=== PATIENT | male | born 1950 | race Caucasian/White ===

== ENCOUNTER 2019-02-12 22:11 | Inpatient (IN) | payer MEDICARE, OTHER ==
[~2019-02-12] VITALS: Ht 175.3 cm; Wt 84.8 kg
--- NOTE | ~2019-02-12 | CON ---
[address] [address] CONSULTATION Name: ZENON SALVADOR Alek Room: [address] IN M.R.#: [id number] Admission: 02/12/19 Attend Phys: Sadaf Cruz MD Discharge: 02/15/19 Date of : 52 Report #: [id number] THIS REPORT FOR: //name// CC: [facility] physician/PCP Sadaf Rhoeds NP DATE OF SERVICE: 02/13/2019 REFERRING PHYSICIAN: Sadaf Cruz MD REASON FOR CONSULTATION: Chronic diarrhea. IMPRESSION: 1. Chronic diarrhea for years without any worrisome symptoms -- suspect diabetic enteropathy versus bacterial overgrowth versus celiac versus other causes. 2. Poorly controlled diabetes mellitus with complications related to the same. 3. Mental status changes, which appear to have resolved. RECOMMENDATIONS: At the present time, the patient has had these issues with diarrhea for years. I recommend he undergo an upper endoscopy to procure a small bowel biopsy as well as a colonoscopy as an outpatient. There is no other previous history that warrants an inpatient evaluation at this time. We will contact the patient to arrange for these to be done in the next several weeks. I have discussed the plans with the patient as well as his son and they are agreeable to the same. HISTORY OF PRESENT ILLNESS: The patient is a 68-year-old white male with poorly controlled diabetes and noncompliance, who was admitted to the hospital because of problems with mental status changes. Apparently, he has had issues with his sugars being elevated and had taken an inordinate amount of insulin to help with the same. He began having problem with low blood sugar. He denies any complaints of any dysphagia, odynophagia. He has had no problem with his stomach. He states he has loose stools off and on, but none has been severe. He is not going to the bathroom in an inordinate amount of time. He has not had any previous studies of his upper or lower GI tract in the past. He is admitted to the hospital for further evaluation and treatment. He was also admitted to the hospital because of problem with chronic venous stasis and possible infection. ALLERGIES: None. MEDICATIONS: Include zolpidem, bisacodyl p.r.n. for constipation, insulin, [place] [address] CONSULTATION Name: MADELEINEZENON Gaston Room: [address]#: [id number] Admission: 02/12/19 Attend Phys: Sadaf Cruz MD Discharge: 02/15/19 Date of : 52 Report #: [id number] melatonin, nystatin. PAST MEDICAL AND SURGICAL HISTORY: Remarkable for poorly controlled diabetes, previous right knee repair, hyperlipidemia. SOCIAL HISTORY: The patient does not smoke or drink. FAMILY HISTORY: Negative for GI malignancy. PHYSICAL EXAMINATION: GENERAL: Revealed a 68-year-old gentleman who is awake and alert. CARDIOPULMONARY: Revealed a regular rate and rhythm. LUNGS: Clear. ABDOMEN: Soft and nontender. No rebound or guarding noted. LABORATORY TESTS: From admission revealed a white count of 8.3, hemoglobin 14.8, platelet count 195,000, MCV is 86.5, RDW 13.1. His sodium is 132, potassium 3.8, chloride 95, bicarbonate is 31, his BUN 17, creatinine 0.9. His bilirubin is 1.0, alkaline phosphatase 87, AST 22, ALT 36. His albumin is 3.6. His Protime is 9.7, INR is 0.7. DISCUSSION: At the present time, the patient's diarrhea does not appear to be a big problem. This has been going on for a long time and does not warrant evaluation at this time over the holiday weekend. We will contact the patient to arrange for outpatient upper and lower endoscopy in the next few weeks. He needs to have definitely better control for his diabetes as well. By: [phone] [id number] Elkins DO /feng
--- NOTE | 2019-02-12 00:45 | NUR ---
PT ADMITTED TO ROOM 213 FROM ED BY CART VIA REPORT WITH MENTAL STATUS CHANGE,DM, CELLULITIS OF BLE. LACTIC ACID IN ED 3.5, CT (-), CXR (-).PT REPORTED PT HAD NOT BEEN SELF,AOX1. GLUCOSE AT THAT TIME 84. PT USUALLY RUNS 200-400. PT GIVEN ORANGE JUICE.BROUGHT TO ED BY EMS. GLUCOSE IN ED 171. PT AOX4 AT THIS TIME. DENIES PAIN. LS CTA ON RA.RHYTHM ST. FLUIDS STARTED AT 250.PT IS UNSTEADY,REQUIRES ASSIST X1. REPORTS WEAKNESS WITHOUT DIZZINESS. PT REPORTS CHRONIC DIARRHEA. PHOTOS TAKEN OF SCRATCHES, JONES AND BLISTER TO LOWER EXTREMETIES,AND BL HANDS. PHOTOS IN CHART. PT EDUCATED ON PLAN OF CARE, FALL PRECAUTIONS AND TREATMENTS. CALL WITHIN REACH. [facility] [place] [facility]
[~2019-02-12 22:11] MED LIST: AMBIEN 5 MG TABL5 M1 PO; ANCEF 1GM1 GM/50 M2 IV; DULCOLAX5 MG PO; GLUCAGEN1 M2 IM; GLUTOSE GEL 1515 G1 PO; LEVEMIR SUBQ; MELATONIN3 MG PO; NOVOLIN R100 UNIT/1 SUBQ; NOVOLOG100 UNIT/1 SUBQ; NYSTATIN 1100000 U/M TOP; TYLENOL325 MG PO
[2019-02-12 22:12] VITALS: BP 156/96
[2019-02-12 22:39] LABS: ABSOLUTE BASOPHILS 0.1 thou/uL (0.0-0.2); ABSOLUTE EOSINOPHILS 0.1 thou/uL (0.0-0.7); ABSOLUTE LYMPHOCYTES 1.5 thou/uL (0.8-5.3); ABSOLUTE MONOCYTES 0.6 thou/uL (0.0-1.2); BASOPHILS 0.7 %; EOSINOPHILS 1.4 %; HEMATOCRIT 43.1 % (42.0-52.0); HEMOGLOBIN 14.8 gm/dL (14.0-18.0); LYMPHOCYTES 18.3 %; MCH 29.7 pg (26.0-34.0); MCHC 34.3 g/dL (28.0-37.0); MCV 86.5 fL (80.0-100.0); MONOCYTES 7.1 %; MPV 8.2 fl. (7.2-11.1); NUCLEATED RBCS 0 /100WBC; PLATELET COUNT* 195 thou/uL (150-400); POLYS 72.5 %; RBC 4.98 mil/uL (4.50-6.00); RDW-CV 13.1 % (10.5-14.5); WBC 8.3 thou/uL (4.0-11.0)
[2019-02-12 22:42] LABS: BE 2.5 mmol/L (-2 to +3); PCO2 37.2 mmHg (35.0-45.0); PO2 73.4 mmHg (75.0-100.0); pH 7.464 (7.340-7.450)
[2019-02-12 22:46] LABS: CALCIUM 9.3 mg/dL (8.5-10.1); CREATININE 0.9 mg/dL (0.6-1.3); POTASSIUM 3.8 mmol/L (3.5-5.1)
[2019-02-12 22:47] LABS: INR 0.9; PROTIME 9.7 Seconds (9.20-11.50)
[2019-02-12 22:50] LABS: ALBUMIN 3.6 g/dL (3.4-5.0); MAGNESIUM 2.2 mg/dL (1.8-2.4); TOTAL PROTEIN 7.4 g/dL (6.4-8.2)
[2019-02-12 23:04] LABS: URINE BILIRUBIN NEGATIVE (Negative); URINE BLOOD NEGATIVE (Negative); URINE CLARITY CLEAR; URINE COLOR YELLOW; URINE GLUCOSE-RANDOM 3+ (Negative); URINE KETONES NEGATIVE (Negative); URINE LEUKOCYTES-REFLEX NEGATIVE (Negative); URINE NITRITE-REFLEX NEGATIVE (Negative); URINE PROTEIN NEGATIVE (Negative); URINE SPECIFIC GRAVITY <= 1.005 (1.005-1.030); URINE UROBILINOGEN 0.2 E.U./dl (0.2-1.0)
[2019-02-13 00:22] VITALS: BP 139/75
[2019-02-13 04:00] VITALS: BP 144/73
[2019-02-13 07:31] LABS: HEMATOCRIT 41.6 % (42.0-52.0); HEMOGLOBIN 14.3 gm/dL (14.0-18.0); MCH 29.5 pg (26.0-34.0); MCHC 34.3 g/dL (28.0-37.0); MCV 86.2 fL (80.0-100.0); RBC 4.83 mil/uL (4.50-6.00); RDW-CV 12.9 % (10.5-14.5); WBC 6.9 thou/uL (4.0-11.0)
[2019-02-13 07:35] LABS: CALCIUM 8.4 mg/dL (8.5-10.1); CREATININE 0.7 mg/dL (0.6-1.3); POTASSIUM 4.1 mmol/L (3.5-5.1)
[2019-02-13 09:00] VITALS: BP 126/70
--- NOTE | 2019-02-13 09:46 | NUR ---
RD consult received for diabetes education. Pt newly admitted with hypoglycemia/mental status change and bilateral lower extremity cellulitis, BG now very hyperglycemic >300. Suspect poor control at home, recommend obtain A1C level. Currently npo. Will address nutrition education needs with pt and on 02/16. Overweight status BMI of 27.6, unsure of any wt loss.
[2019-02-13 11:37] VITALS: BP 134/83
--- NOTE | 2019-02-13 13:06 | EKG ---
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[place] : 1950 Requested By: Azalea Murdock Order Number: [id number] MD: Matheus Mccray Measurements Intervals [place] Rate: 105 P: 50 [place]: 176 QRS: 22 QRSD: 118 T: 32 QT: 374 QTc: 495 Interpretive Statements multi focal atrial tachycardia Probable left atrial enlargement Borderline prolonged QT interval Compared to ECG 10/26/2005 09:36:49 Sinus rhythm no longer present Electronically Signed On 02-13-2019 13:06:35 CDT by Matheus Mccray [email or web address] <ELECTRONICALLY SIGNED> By: Matheus Mccray MD, [facility] 02/13/19 1306 222 20 Matheus Mccray MD, [facility] /EPI
[2019-02-13 15:30] VITALS: BP 122/83
--- NOTE | 2019-02-13 20:06 | NUR ---
I ASSUMED CARE OF THE PATIENT AT 0700. HE IS ALERT AND ORIENTED X4 AND IS UP WITH SBA. BED IS IN THE LOW LOCKED POSITION AND CALL LIGHT IS IN REACH. HOURLY ROUNDING IS COMPLETED AND PATIENT NEEDS ARE MET. PAIN IS DENIED. BLOOD SUGAR IS MONITORED AND MANAGED WITH INSULIN. WE HAD LOTS OF EDUCATIONAL MOMENTS TODAY WHILE DISCUSSING COMPLIANCE. STOOL SPECIMEN WAS SENT TO LAB. HE IS A FALL RISK AND USES THE CALL LIGHT APPRORIATELY. WILL CONTINUE TO MONITOR.
[2019-02-13 20:25] VITALS: BP 102/68
[2019-02-14] VITALS: BP 112/55
[2019-02-14 04:00] VITALS: BP 123/75
--- NOTE | 2019-02-14 04:32 | CON ---
[address] [address] CONSULTATION Name: ZENON SALVADOR Alek Room: [address] IN M.R.#: [id number] Admission: 02/12/19 Attend Phys: Sadaf Cruz MD Discharge: Date of : 52 Report #: [id number] THIS REPORT FOR: //name// CC: [facility] physician/PCP Sadaf Cruz DATE OF SERVICE: 02/13/2019 INFECTIOUS DISEASE CONSULTATION ATTENDING PHYSICIAN: Dr. Cruz. REASON FOR CONSULTATION: Possible left leg cellulitis. HISTORY OF PRESENT ILLNESS: A 68-year-old white man tells me he was admitted through the Emergency Room, totally confused, not knowing where he was on account of having taken too much insulin and not having eaten enough. Today, he feels better. Relates he has some problem with legs because he has suffered trauma against a flower pot several weeks ago, particularly on the right side. Anyhow, the left leg is the one that appears reddened with swelling of the foot and mildly erythematous and possibly cellulitic for which he is receiving cefazolin. PAST MEDICAL HISTORY: Diabetes mellitus, diabetic neuropathy of feet and hand, dyslipidemia, history of nonsustained ventricular tachycardia. PAST SURGICAL HISTORY: Right knee surgery. DRUG ALLERGIES: None listed. MEDICATIONS: The patient is on treatment with insulin lispro per sliding scale, p.r.n. glucose, p.r.n. glucagon, ondansetron, ceftriaxone 1 g IV single dose given. SOCIAL HISTORY: See H and P, old records. FAMILY HISTORY: See H and P, old records. PHYSICAL EXAMINATION: GENERAL: A well-developed, not toxic looking man, alert, in no distress. VITAL SIGNS: Afebrile since admission, temperature 98.2, tachycardia 112, respirations 18, BP 144/73, height 5 feet 9 inches, weight 187 pounds. HEENMT: Upper and lower bridges. Pupils reactive. NECK: Supple. LUNGS: Clear. HEART: S1, S2[place] [address] CONSULTATION Name: ZENON SALVADOR Alek Room: [address] IN [facility].#: [id number] Admission: 02/12/19 Attend Phys: Sadaf Cruz MD Discharge: Date of : 52 Report #: [id number] ABDOMEN: Soft, no masses or megaly. EXTREMITIES: Old levine to right thumb, deformities of the hands and atrophy of interosseous muscles due to neuropathy, evidence of trauma to the right leg in the linear distribution, erythematous changes of the left foot, leg with some swelling of the distal left foot and distal left leg. NEUROLOGIC: Decreased touch sensation in lower extremities. LABORATORY DATA: Sodium 132, chloride 95, BUN 17, creatinine 0.9, glucose 161. Calcium, magnesium normal. Albumin 3.6. Lactic acid elevated at 3.5. Troponin normal. WBC 8.3, hemoglobin 14.8, platelets 195,000. Urinalysis revealed 3+ glucose, otherwise negative. ABGs: pH 7.46, pCO2 of 37, pO2 of 73, bicarbonate 26. This set of gas is on room air. Chest x-ray, no acute findings. CT scan of the brain revealed moderate cerebral atrophy, minimal chronic deep white matter changes, no acute cerebral process. ASSESSMENT: 1. Altered mental status, question secondary to relative hypoglycemia. 2. Diabetes mellitus, on insulin. 3. Question cellulitis, left foot. 4. History of trauma to the right leg. 5. Peripheral neuropathy. 6. Lactic acidosis. SUGGESTIONS: Recommend continue Rocephin 1 gram IV daily. Obtain ESR and CRP, dealing with cellulitis these must be elevated, otherwise, doubt the diagnosis of cellulitis will entertain the possibility of stasis dermatitis. Dr. Cruz, thank you for requesting my suggestions. <ELECTRONICALLY SIGNED> By: Tobias Goldstein MD 02/14/19 0432 0508 [id number] Goldstein MD /feng
--- NOTE | 2019-02-14 05:29 | NUR ---
PT SLEPT WELL OVERNIGHT WITHOUT COMPLAINTS. LFA IVF INFUSING PER PUMP. HS ACCUCHECK 288 INSULIN GIVEN WITH SNACK. TELE SR. PT HAS DENIED PAIN. AM LABS DRAWN. UP WITH ASSIST TO BR TO VOID, CALL LITE IN EASY REACH, AND BED ALARM ON FOR SAFETY. ID IN TO SEE PT EARLY THIS MORNING, DC IV ABX AND SWITCH TO ORAL. NO STOOL OVERNIGHT.
[2019-02-14 07:24] LABS: ABSOLUTE EOSINOPHILS 0.1 thou/uL (0.0-0.7); ABSOLUTE LYMPHOCYTES 1.6 thou/uL (0.8-5.3); ABSOLUTE MONOCYTES 0.5 thou/uL (0.0-1.2); ABSOLUTE NEUTROPHILS 4.1 thou/uL (1.6-8.1); BASOPHILS 0.6 %; HEMATOCRIT 40.8 % (42.0-52.0); HEMOGLOBIN 13.7 gm/dL (14.0-18.0); LYMPHOCYTES 24.8 %; MCH 29.5 pg (26.0-34.0); MCHC 33.7 g/dL (28.0-37.0); MCV 87.6 fL (80.0-100.0); MONOCYTES 7.3 %; MPV 7.6 fl. (7.2-11.1); NUCLEATED RBCS 0 /100WBC; PLATELET COUNT* 162 thou/uL (150-400); POLYS 65.3 %; RBC 4.65 mil/uL (4.50-6.00); RDW-CV 13.1 % (10.5-14.5); WBC 6.3 thou/uL (4.0-11.0)
[2019-02-14 08:00] VITALS: BP 150/75
[2019-02-14 08:18] LABS: ALBUMIN 2.8 g/dL (3.4-5.0); ALKALINE PHOSPHATASE 67 U/L (46-116); ANION GAP 9 mmol/L (7-16); BUN 13 mg/dL (7-18); CALCIUM 8.3 mg/dL (8.5-10.1); CHLORIDE 106 mmol/L (98-107); CO2 26 mmol/L (21-32); CREATININE 0.8 mg/dL (0.6-1.3); GLUCOSE 262 mg/dL (70-99); POTASSIUM 4.2 mmol/L (3.5-5.1); SGOT 22 U/L (15-37); SGPT 31 U/L (30-65); SODIUM 141 mmol/L (136-145); TOTAL BILIRUBIN 0.8 mg/dL (<0.1-1.0)
[2019-02-14 12:00] VITALS: BP 156/86
[2019-02-14 16:00] VITALS: BP 122/61
--- NOTE | 2019-02-14 18:12 | NUR ---
PT A/O, BUT IMPULSIVE. TELE TRACKING SR AND ALL VSS ON ROOM AIR. DENIES CP, SOA. SCATTERED SCABS ON ALL EXTREMITIES. BLOOD SUGARS REMAIN ELEVATED, BUT PT REFUSING GLIPIZIDE. MULTIPLE VISITORS THIS SHIFT. BED ALARM ON. EDUCATED ON SAFETY AND PLAN OF CARE. PLEASE SEE ASSESSMENT FOR ADDITIONAL INFORMATION. WILL CONT TO MONITOR
[2019-02-14 20:20] VITALS: BP 157/98
[2019-02-15] VITALS: BP 148/80
[2019-02-15 04:06] VITALS: BP 145/69
--- NOTE | 2019-02-15 04:58 | NUR ---
PT SLEPT WELL WITHOUT COMPLAINTS OVERNIGHT. AOX4, CONVERSATIONAL. UP WITH ASSIST TO BR TO VOID. LFA SL. HS ACCUCHECK 228, INSULIN GIVEN WITH SNACK. AM LAB. PO ABX GIVEN ORDERED. ABLE TO USE CALL LITE AND MAKE NEEDS KNOWN. BED ALARM ON OVERNIGHT FOR SAFETY. HOPEFUL FOR DISCHARGE HOME TODAY.
[2019-02-15 08:00] VITALS: BP 147/91
[2019-02-15] MEDS ORDERED: HUMULIN N100 UNIT/1 SUBQ (11:52)
[2019-02-15] MEDS ORDERED: KEFLEX500 M1 PO (11:52)
[2019-02-15 13:16] VITALS: BP 147/91
[2019-02-15 13:38] VITALS: BP 123/87
== END 2019-02-15 13:00 | disposition home or self-care (01) | DRG 70 ==
LOC: M.ERS 22:11 → M.TBA-ER 23:35 → M.2W 23:35
PROVIDERS: Internal Medicine Gastroenterology; Personal Emergency Response Attendant; ADMIT Internal Medicine
DX: G93.41 Metabolic encephalopathy (principal); R65.11 Systemic inflammatory response syndrome (SIRS) of non-infectious origin with acute organ dysfunction; L03.116 Cellulitis of left lower limb; E87.2 Acidosis; L03.115 Cellulitis of right lower limb; E11.65 Type 2 diabetes mellitus with hyperglycemia; E11.42 Type 2 diabetes mellitus with diabetic polyneuropathy; G35 Multiple sclerosis; K52.9 Noninfective gastroenteritis and colitis, unspecified; W18.30XA Fall on same level, unspecified, initial encounter; E78.5 Hyperlipidemia, unspecified; Z79.4 Long term (current) use of insulin; Z79.899 Other long term (current) drug therapy

== ENCOUNTER 2019-12-17 20:00 | Inpatient (IN) | payer MEDICARE, OTHER ==
[~2019-12-17] VITALS: Ht 175.3 cm; Wt 99.1 kg
[~2019-12-17 20:00] MED LIST changes: +HUMULIN N100 UNIT/1 SUBQ; +KEFLEX500 M1 PO
[2019-12-17 20:11] VITALS: BP 124/62
[2019-12-17 21:08] LABS: BE 3.8 mmol/L (-2 to +3); PCO2 33.9 mmHg (35.0-45.0); PO2 114.7 mmHg (75.0-100.0); pH 7.512 (7.340-7.450)
[2019-12-17 21:11] LABS: INFLUENZA A ANTIGEN Negative (Negative); INFLUENZA B ANTIGEN Negative (Negative)
[2019-12-17 21:28] LABS: ABSOLUTE EOSINOPHILS 0.1 thou/uL (0.0-0.7); ABSOLUTE MONOCYTES 1.6 thou/uL (0.0-1.2); ABSOLUTE NEUTROPHILS 11.2 thou/uL (1.6-8.1); BASOPHILS 0.2 %; EOSINOPHILS 0.5 %; HEMATOCRIT 36.2 % (42.0-52.0); HEMOGLOBIN 12.4 gm/dL (14.0-18.0); LYMPHOCYTES 7.5 %; MCH 29.4 pg (26.0-34.0); MCHC 34.2 g/dL (28.0-37.0); MONOCYTES 11.5 %; MPV 7.9 fl. (7.2-11.1); NUCLEATED RBCS 0 /100WBC; PLATELET COUNT* 157 thou/uL (150-400); POLYS 80.3 %; RBC 4.21 mil/uL (4.50-6.00); RDW-CV 13.7 % (10.5-14.5); WBC 13.9 thou/uL (4.0-11.0)
[2019-12-17 21:35] LABS: CALCIUM 8.2 mg/dL (8.5-10.1); CREATININE 1.4 mg/dL (0.6-1.3); POTASSIUM 4.5 mmol/L (3.5-5.1)
[2019-12-17 21:39] LABS: ALBUMIN 2.8 g/dL (3.4-5.0); MAGNESIUM 2.1 mg/dL (1.8-2.4); TOTAL BILIRUBIN 1.8 mg/dL (<0.1-1.0); TOTAL PROTEIN 6.7 g/dL (6.4-8.2)
[2019-12-17 22:50] LABS: URINE BILIRUBIN NEGATIVE (Negative); URINE BLOOD 1+ (Negative); URINE CLARITY CLEAR; URINE COLOR YELLOW; URINE GLUCOSE-RANDOM 3+ (Negative); URINE KETONES 1+ (Negative); URINE LEUKOCYTES-REFLEX 1+ (Negative); URINE NITRITE-REFLEX NEGATIVE (Negative); URINE PROTEIN NEGATIVE (Negative); URINE UROBILINOGEN 0.2 E.U./dl (0.2-1.0)
[2019-12-17 23:43] LABS: SQUAMOUS 4-10 Moderate /LPF (0-3)
[2019-12-17 23:44] LABS: HYALINE CASTS 0-3 Few /LPF (None Seen); URINE RBC 3-10 Few /HPF (0-2); URINE WBC-REFLEX >25 Many /HPF (0-5)
[2019-12-17 23:45] LABS: CRYSTALS None Seen /LPF (None Seen); WBC CLUMPS Few (None Seen)
[2019-12-18 00:56] VITALS: BP 131/63
[2019-12-18 01:47] VITALS: BP 126/58
--- NOTE | 2019-12-18 04:37 | NUR ---
ASSUMED CARE OF PT AT 0049. PT A&OX4, ON ROOM AIR, IV FLUIDS INFUSING ORDERED, PT SLEEPING WELL. ASSESSMENTS AND HOURLY ROUNDINGS COMPLETE. WILL CONTINUE TO MONITOR.
[2019-12-18 07:45] VITALS: BP 123/59
--- NOTE | 2019-12-18 09:52 | EKG ---
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[place] : 1950 Requested By: Azalea Murdock Order Number: [id number] MD: Matheus Mccray Measurements Intervals [place] Rate: 89 P: 41 AL: 180 QRS: 29 QRSD: 114 T: 52 QT: 373 QTc: 454 Interpretive Statements Sinus rhythm artifact noted Borderline intraventricular conduction delay Compared to ECG 02/12/2019 22:21:35 pac's no longer seen Electronically Signed On 12-18-2019 9:52:17 CDT by Matheus Mccray [email or web address] <ELECTRONICALLY SIGNED> By: Matheus Mccray MD, [facility] 12/18/19 0952 25 25 Matheus Mccray MD, [facility] /EPI
[2019-12-18 11:27] LABS: CALCIUM 8.2 mg/dL (8.5-10.1); MAGNESIUM 2.1 mg/dL (1.8-2.4)
[2019-12-18 12:00] VITALS: BP 113/59
[2019-12-18 12:00] LABS: URINE BILIRUBIN NEGATIVE (Negative); URINE BLOOD 1+ (Negative); URINE CLARITY CLEAR; URINE COLOR YELLOW; URINE GLUCOSE-RANDOM 3+ (Negative); URINE KETONES 1+ (Negative); URINE LEUKOCYTES-REFLEX TRACE (Negative); URINE NITRITE-REFLEX NEGATIVE (Negative); URINE PROTEIN TRACE (Negative); URINE UROBILINOGEN 0.2 E.U./dl (0.2-1.0)
--- NOTE | 2019-12-18 12:05 | NUR ---
PATIENT FOUND TO HAVE A FLUTTER ON EKG THIS AM. PATIENT TRANSFERING TO TELEMETRY UNIT, ROOM 232. BEDSIDE REPORT GIVEN TO DUDLEY SPENCE.
[2019-12-18 12:09] LABS: BACTERIA-REFLEX 1-9 Few /HPF (None Seen); CASTS None Seen /LPF (None Seen); CRYSTALS None Seen /LPF (None Seen); MUCUS None Seen strn/LPF (None Seen); SQUAMOUS 0-3 Few /LPF (0-3); URINE RBC 3-10 Few /HPF (0-2); URINE WBC-REFLEX 0-5 Rare /HPF (0-5)
--- NOTE | 2019-12-18 14:33 | CON ---
[address] [address] CONSULTATION Name: ZENON SALVADOR Room: [address] [place] Zendejas#: [id number] Admission: 12/17/19 Attend Phys: Araceli Wu Discharge: Date of : 52 Report #: [id number] THIS REPORT FOR: //name// cc: Alyse Rhodes Tammy RNP ~ THIS REPORT FOR: //name// CC: Araceli Delacruz NP DATE OF SERVICE: 12/18/2019 CARDIOLOGY CONSULTATION HISTORY OF PRESENT ILLNESS: The patient is a 69-year-old white male who I was asked to see in the hospital today after he was noted to be in atrial flutter. The history was obtained from the patient. He has had several hospitalizations here at [facility] in the past. He was admitted here in 2016 with a foot infection. He has a long history of diabetes and peripheral neuropathy. He apparently also has a history of nonsustained ventricular tachycardia. He states it presented several years ago when he was short of breath and weak. He came here to [facility] and was diagnosed with ventricular tachycardia. He was placed on Coreg. He was referred to an EP doctor at [facility]. He apparently had a stress test and echocardiogram that showed no structural heart disease. He eventually was taken off the Coreg. He was admitted here last February with diarrhea. He apparently was confused and had sepsis. He eventually was discharged. He apparently does have a history of chronic diarrhea and sees Dr. Elkins. He is felt to have diabetic neuropathy. Recently, his diarrhea is not any worse. He no longer sees an EP doctor. He denied any palpitations. However, for the past week, he has been weak. Yesterday, he noticed his heart beating fast. His brought him to the Emergency Room and he was admitted. He was felt to be dehydrated. Denied any fever, cough, blood in the stool, vomiting, or change in appetite. He denies recent chest pain or shortness of breath. He was admitted. This morning ECG showed atrial flutter. I was asked to see him for further evaluation and treatment. He apparently did have a previous heart catheterization that showed no significant coronary artery disease. PAST MEDICAL HISTORY: He has had knee surgery, cataract extraction, and diabetes. No history of hyperlipidemia or hypertension. CURRENT MEDICATIONS: Include only insulin. ALLERGIES: He has no known [place] [address] CONSULTATION Name: ZENON SALVADOR Room: [address] [place] Zendejas#: [id number] Admission: 12/17/19 Attend Phys: Araceli Wu Discharge: Date of : 52 Report #: [id number] FAMILY HISTORY: Negative for heart disease. SOCIAL HISTORY: He is . He and his live in [place]. 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 Quit smoking years ago, rarely drinks alcohol, very small amounts of caffeine. REVIEW OF SYSTEMS: No history of stroke. He does have a previous history of asthma. No history of liver disease, kidney disease, cancer, chronic skin condition, or psychiatric illness. PHYSICAL EXAMINATION: GENERAL: Revealed an elderly male, lying in bed. He appeared in no distress. VITAL SIGNS: He had a blood pressure of 120/60, pulse is 120 and irregular, and respirations nonlabored. Temperature on admission was 100.8. HEENT: He was anicteric. Conjunctivae are pink. Mucous membranes moist. NECK: Veins nondistended. No carotid bruits. Neck supple. CHEST: Clear to auscultation. CARDIOVASCULAR: Irregular rhythm. No significant murmur. ABDOMEN: Soft. EXTREMITIES: Had no edema. Posterior tibial pulse 2+ bilaterally. SKIN: Cool and dry. NEUROLOGIC: Nonfocal. DIAGNOSTIC DATA: His ECG on admission showed a sinus rhythm with no significant ST or T-wave change. Currently, ECG shows atrial flutter with a variable response. No significant ST or T-wave change. His workup so far, he had a chest x-ray that showed normal heart size, clear lung kang. LABORATORY DATA: Sodium 131, BUN 27, creatinine 1.0, glucose 186. SGOT 39, SGPT 39, alkaline phosphatase 87, and bilirubin 1.8. His TSH last February was 0.6. His white blood cell count 13.9, hemoglobin 12.4. IMPRESSION AND RECOMMENDATIONS: 1. Paroxysmal atrial flutter. Recommend starting anticoagulation with Eliquis. I would recommend starting sotalol. If the patient fails to convert, we would consider cardioversion. Recommend echocardiogram. 2. Diabetes. 3. Chronic diarrhea, felt to be secondary to neuropathy. 4. Peripheral neuropathy. 5. Weakness. Possibly related to atrial flutter. <ELECTRONICALLY SIGNED> By: Matheus Mccray MD, FACC 12/18/19 1433 1145 [id number] Mccray MD, FACC /nt
[2019-12-18 16:00] VITALS: BP 121/66
--- NOTE | 2019-12-18 19:46 | NUR ---
I ASSUMED CARE OF THE PATIENT A TRANSFER FROM THE ORTHO DEPARTMENT AT 1200. HE IS ALERT AND ORIENTED X4 AND IS A Q2 TURN. BED IS IN THE LOW LOCKED POSITION AND CALL LIGHT IS IN REACH. PAIN IS MANAGED WITH PRN MEDS. HE IS FROM HOME WITH HIS . NAYELI HAS ADEQUATE OUTPUT. BLOOD SUGAR IS MONITORED AND MANAGED WITH INSULIN. I AGREE WITH THE MORNING NURSES ASSESSMENT. WILL CONTINUE TO MONITOR.
[2019-12-19] VITALS: BP 103/59
--- NOTE | 2019-12-19 00:52 | NUR ---
ASSUMED CARE OF PT AT 1900. PT IS ALERT AND ORIENTED. VSS. PERRLA. NO COMPLAINTS OF PAIN. PT HAS A TYLER IN PLACE. PT IS IN A FLUTTER ON THE TELEMETRY. PT IS RESTING COMFORTABLY IN BED. RESPIRATIONS ARE EVEN AND NONLABORED. WILL CONTINUE TO MONITOR PT.
[2019-12-19 04:00] VITALS: BP 126/68
[2019-12-19 08:00] VITALS: BP 130/61
--- NOTE | 2019-12-19 08:05 | NUR ---
ASSUMED CARE OF PT FROM NIGHT NURSE. PT HAD CO OF PAIN WELL CONTROLLED WITH PO PAIN MEDICATIONS, NO CO OF NAUSEA. PT WAS EDUCATED ON POC AND FALL SAFETY, BED IN LOWEST POSITION AND CALL LIGHT IS IN REACH. WILL CONTINUE TO MONITOR. BED ALARM IS ON.
[2019-12-19 12:19] VITALS: BP 101/56
[2019-12-19 13:02] LABS: CREATININE 0.9 mg/dL (0.6-1.3); MAGNESIUM 2.1 mg/dL (1.8-2.4)
[2019-12-19 16:14] VITALS: BP 101/58
[2019-12-19 20:00] VITALS: BP 121/70
[2019-12-20] VITALS (7 sets, daily range): BP systolic 105–149; BP diastolic 56–73
--- NOTE | 2019-12-20 06:01 | NUR ---
ASSESSMENTS COMPLETED AT BEDSIDE, PLEASE REFER TO CHARTING FOR DETAILS. MEDICATIONS ADMINISTERED PER MAR. HOURLY ROUNDING COMPLETED FOR SAFETY. FALL PERCAUTIONS IN PLACE, BED ALARM ON AND CALL LIGHT WITHIN REACH.
[2019-12-20 09:28] LABS: ABSOLUTE BASOPHILS 0.1 thou/uL (0.0-0.2); ABSOLUTE EOSINOPHILS 0.3 thou/uL (0.0-0.7); ABSOLUTE LYMPHOCYTES 1.3 thou/uL (0.8-5.3); ABSOLUTE MONOCYTES 1.1 thou/uL (0.0-1.2); ABSOLUTE NEUTROPHILS 6.8 thou/uL (1.6-8.1); BASOPHILS 0.7 %; EOSINOPHILS 3.6 %; HEMATOCRIT 35.1 % (42.0-52.0); HEMOGLOBIN 12.1 gm/dL (14.0-18.0); LYMPHOCYTES 13.9 %; MCH 29.5 pg (26.0-34.0); MCHC 34.4 g/dL (28.0-37.0); MONOCYTES 11.2 %; MPV 8.2 fl. (7.2-11.1); NUCLEATED RBCS 0 /100WBC; PLATELET COUNT* 187 thou/uL (150-400); POLYS 70.6 %; RBC 4.08 mil/uL (4.50-6.00); RDW-CV 13.7 % (10.5-14.5); WBC 9.6 thou/uL (4.0-11.0)
[2019-12-20 09:33] LABS: ALBUMIN 2.4 g/dL (3.4-5.0); CALCIUM 8.2 mg/dL (8.5-10.1); CREATININE 0.9 mg/dL (0.6-1.3); POTASSIUM 4.1 mmol/L (3.5-5.1); TOTAL BILIRUBIN 0.8 mg/dL (<0.1-1.0); TOTAL PROTEIN 6.6 g/dL (6.4-8.2)
[2019-12-20 10:45] LABS: ESR (SEDRATE) 73 mm/hr (0-20)
--- NOTE | 2019-12-20 15:27 | EKG ---
[place] [address] ELECTROCARDIOGRAM REPORT Name: ZENON SALVADOR AZEEM Room: [address] ADM IN M.R.#: [id number] Admission: 12/20/19 Attend Phys: Araceli saucedo Sa Discharge: Date of : 52 Date of Service: 12/18/19 0939 Report #: [id number] THIS REPORT FOR: //name// [facility] Test Date: 2019-12-18 Test Time: 09:39:28 Pat Name: ZENON SALVADOR Department: Room: [facility] Gender: M Campaign Director: DAMIR : 1950 Requested By: Araceli Pablo Order Number: [id number] Mike MD: Davi Faye Measurements Intervals [place] Rate: 116 P: ME: QRS: 61 QRSD: 107 T: 31 QT: 345 QTc: 480 Interpretive Statements Atrial flutter with variable block Borderline prolonged QT interval Compared to ECG 12/17/2019 21:26:28 Sinus rhythm no longer present Electronically Signed On 12-20-2019 15:27:36 CDT by Davi Faye [email or web address] <ELECTRONICALLY SIGNED> By: Davi Faye MD, [facility] 12/20/19 1527 0939 0939 Davi Faye MD, [facility] /EPI
--- NOTE | 2019-12-20 15:36 | EKG ---
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
--- NOTE | 2019-12-20 15:42 | EKG ---
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: : 1950 Requested By: Matheus Mccray Order Number: [id number] Mike MD: Davi Faye Measurements Intervals [place] Rate: 71 P: 37 [place]: 174 QRS: 38 QRSD: 114 T: 50 QT: 437 QTc: 475 Interpretive Statements Sinus rhythm Atrial premature complex Borderline intraventricular conduction delay Compared to ECG 12/19/2019 10:27:27 Atrial premature complex(es) now present Electronically Signed On 12-20-2019 15:42:17 CDT by Davi Faye [email or web address] <ELECTRONICALLY SIGNED> By: Davi Faye MD, [facility] 12/20/19 1542 Daiv Faye MD, [facility] /EPI
--- NOTE | 2019-12-20 15:47 | NUR ---
SW called pt to complete initial assessment, introduce self, and SW role. Pt has lived at home with and explained that pt has been increasingly weak over the past week. Pt says she is 76 and cannot lift up on pt. Pt has hx of SNF at [facility]. Pt has RW. Pt/pt are agreeable to rehab or SNF at dc. SW to continue to follow to assist with safe dc planning.
--- NOTE | 2019-12-20 18:11 | NUR ---
ASSUMED CARE OF PATIENT FROM THE NIGHT NURSE. PT IS DOING BETTER TODAY. HE HAS MILD CO OF PAIN WELL CONTROLLED WITH PO PAIN MEDICATIONS. NO CO OF NAUSEA. HE WAS EDUCATED ON FALL SAFETY AND USING THE CALL LIGHT FOR ASSISTANCE. BED IS IN LOWEST POSITON AND CALL LIGHT IS IN REACH. BEDE ALARM IS ON, WILL CONTINUE TO MONITOR.
[2019-12-21 04:06] LABS: % FREE PSA 21.3 % (()); FREE PSA 0.17 ng/mL
[2019-12-21 05:14] VITALS: BP 119/60
[2019-12-21 08:00] VITALS: BP 155/77
--- NOTE | 2019-12-21 09:29 | 2DMMODE ---
[place] [address] 2 D/M-MODE ECHOCARDIOGRAM Name: ZENON SALVADOR Room: [address] IN [facility]#: [id number] Admission: 12/20/19 Attend Phys: Araceli saucedo Sa Discharge: Date of : 52 Date of Service: 12/21/19 0929 Report #: [id number] THIS REPORT FOR: cc: Alyse Rhodes Tammy RNP Liston, Michael J. MD [facility] ~ APPROVED REPORT Study performed: 12/20/2019 15:16:32 EXAM: Comprehensive 2D, Doppler, and color-flow Echocardiogram Patient Location: In-Patient Room #: [facility] Status: routine BSA: 2.06 HR: 71 bpm BP: 138/72 mmHg Indications Atrial Fibrillation 2D Dimensions IVSd: 13.41 (7-11mm) LVOT Diam: 24.00 (18-24mm) LVDd: 55.23 mm PWd: 11.82 (7-11mm) Ascending Ao: 35.04 (22-36mm) LVDs: 41.98 (25-40mm) Aortic Root: 40.07 mm Volumes Left Atrial Volume (Systole) LA ESV Index: 40.40 mL/m2 Aortic Valve AoV Peak Willie.: 0.78 m/s AO Peak Gr.: 2.45 mmHg LVOT Max P.65 mmHg AO Mean Gr.: 1.49 mmHg LVOT Mean P.78 mmHg LVOT Max V: 0.64 m/s AO V2 VTI: 16.58 cm LVOT Mean V: 0.40 m/s CHRIS (VTI): 3.77 cm2 LVOT V1 VTI: 13.84 cm Mitral Valve E/A Ratio: 1.88 MV Decel. Time: 176.12 ms MV E Max Willie.: 0.72 m/[place] [address] 2 D/M-MODE ECHOCARDIOGRAM Name: MARIA EMinaZENON Room: [address] IN .R.#: [id number] Admission: 12/20/19 Attend Phys: Araceli saucedo Sa Discharge: Date of : 52 Date of Service: 12/21/19 0929 Report #: [id number] PHT: 51.07 ms MVA (PHT): 4.31 cm2 TDI E/Lateral E': 6.00 E/Medial E': 8.00 Medial E' Willie.: 0.09 m/s Lateral E' Willie.: 0.12 m/s Pulmonary Valve PV Peak Willie.: 0.67 m/s PV Peak Gr.: 1.81 mmHg Left Ventricle The left ventricle is normal size. There is global hypokinesis noted. Mild concentric left ventricular hypertrophy. Left ventricular systolic function is moderately decreased. LVEF is 35-40%. Transmitral Doppler flow pattern suggests restrictive physiology. Right Ventricle The right ventricle is normal size. The right ventricular systolic function is normal. Atria Left atrium is mildly dilated. The right atrium size is normal. Aortic Valve The aortic valve is normal in structure. Trace aortic regurgitation. There is no aortic valvular stenosis. Mitral Valve The mitral valve is normal in structure. Trace mitral regurgitation. No evidence of mitral valve stenosis. Tricuspid Valve The tricuspid valve is normal in structure. Trace tricuspid regurgitation. Unable to assess PA pressure. Pulmonic Valve The pulmonary valve is normal in structure. There is no pulmonic valvular regurgitation. Great Vessels The aortic root is normal in size. IVC is normal in size and collapses >50% [place] [address] 2 D/M-MODE ECHOCARDIOGRAM Name: ZENON SALVADOR Room: [address] IN [facility].#: [id number] Admission: 12/20/19 Attend Phys: Araceli saucedo Sa Discharge: Date of : 52 Date of Service: 12/21/19 0929 Report #: [id number] Pericardium There is no pericardial effusion. <Conclusion> The left ventricle is normal size. Mild concentric left ventricular hypertrophy. Left ventricular systolic function is moderately decreased. LVEF is 35-40%. Transmitral Doppler flow pattern suggests restrictive physiology. There is global hypokinesis noted. Left atrium is mildly dilated. Trace aortic regurgitation. Trace mitral regurgitation. Trace tricuspid regurgitation. IVC is normal in size and collapses >50% with inspiration. <ELECTRONICALLY SIGNED> By: Jaime Rosales MD, FACC 12/21/19928 8 8 Jaime Rosales MD, FACC /INF
[2019-12-21 12:38] VITALS: BP 140/66
--- NOTE | 2019-12-21 15:25 | NUR ---
ASSUMED PT CARE AT 0730, PT RESTING IN BED AND C/O PAIN TO BILAT HIPS AND DIARRHEA EVERY TIME HE EATS. SCHEDULED MEDS (INCLUDING IMMODIUM) AND NORCO GIVEN W/ RELIEF FOR BOTH COMPLAINTS. PT WORKED W/ PT AND OT TODAY AND CARDIOLOGY. PT TO BE NPO AFTER MIDNIGHT FOR US OF ABD IN THE MORNING. PT REMINDED TO CALL IF HE NEEDS TO GET UP TO USE THE RESTROOM, TYLER IN PLACE FOR RTN W/ YELLOW URINE DRAINING. PT GOAL IS TO MAINTAIN SAFETY AND KEEP PAIN UNDER CONTROL. AM ASSESSMENT CHARTED, MEDS PER MAR, HOURLY ROUNDING OBSERVED, FALL PRECAUTIONS IN PLACE, CALL LIGHT W/IN REACH, WILL CONTINUE POC.
--- NOTE | 2019-12-21 16:30 | NUR ---
PATRICA spoke with Adelina, rehabilitation manager, who said that pt is being considered [facility] [place] [facility] pending therapy recommendations and final decision on acceptance. SW to continue to follow.
[2019-12-21 17:52] VITALS: BP 135/66
--- NOTE | 2019-12-21 18:33 | NUR ---
NO ACUTE CHANGES THROUGHOUT SHIFT, PT HAD SOME PAIN LATER IN SHIFT, TREATED W/ PRN NORCO W/ SOME RELIEF. MEDS PER AUG, HOURLY ROUNDING OBSERVED, FALL PRECAUTIONS IN PLACE, CALL LIGHT W/IN REACH, WILL CONTINUE POC.
[2019-12-21 20:00] VITALS: BP 118/66
[2019-12-22] VITALS (7 sets, daily range): BP systolic 97–169; BP diastolic 51–80
[2019-12-22 05:52] LABS: CALCIUM 8.2 mg/dL (8.5-10.1); CREATININE 0.8 mg/dL (0.6-1.3); MAGNESIUM 2.1 mg/dL (1.8-2.4); POTASSIUM 4.7 mmol/L (3.5-5.1)
--- NOTE | 2019-12-22 12:00 | CON ---
[address] [address] CONSULTATION Name: ZENON SALVADOR Room: [address] IN M.R.#: [id number] Admission: 12/20/19 Attend Phys: Araceli Wu Discharge: Date of : 52 Report #: [id number] THIS REPORT FOR: //name// cc: Alyse Rhodes Tammy RNP ~ THIS REPORT FOR: //name// CC: Araceli Teresa DATE OF SERVICE: 12/21/2019 INFECTIOUS DISEASE CONSULTATION ATTENDING PHYSICIAN: Dr. Pruett REASON FOR EVALUATION: Enterococcal complicated urinary tract infection with septicemia. HISTORY OF PRESENT ILLNESS: Chart reviewed, the patient examined. This is a 69-year-old with known history of diabetes mellitus, has been complicated by severe neuropathy including enteropathy and has a chronic explosive diarrhea that at best situation is somewhat diminished by antimotility agents, also has chronic back pain and has been exacerbated over the right hip more recently. He presented with weakness, felt to be dehydrated. This has progressed over the course of last several days, was found to be hyperglycemic as well. He notes he had some lower abdominal discomfort. Urinalysis showed marked pyuria and moderate bacteriuria. Urine culture confirmed to have growth of greater than 10 to the fifth Enterococcus faecalis that was generally susceptible. One out of 2 blood cultures with enterococcus as well. Did undergo echo testing, which showed no evidence of valvular vegetations. He clinically has improved, he attributes primarily to the hydration. He is generally lucid. Denies significant pulmonary-related complaints. ALLERGIES: NOTE SUGGESTS HE IS ALLERGIC TO PENICILLIN. MEDICINES: Include vancomycin, loperamide, finasteride, famotidine, tamsulosin, apixaban, cefepime, sotalol, tramadol, ascorbic acid, insulin lispro sliding scale, hydrocodone. PAST MEDICAL HISTORY: As described above the diabetes mellitus with fairly severe sequelae primarily related to neuropathy both peripheral neuropathy as well as some enteropathy. Has chronic back pain, elevated cholesterol. SOCIAL HISTORY: Former smoker. No illicit [place] [address] CONSULTATION Name: ZENON SALVADOR Room: [address] IN [facility]#: [id number] Admission: 12/20/19 Attend Phys: Araceli Wu Discharge: Date of : 52 Report #: [id number] FAMILY HISTORY: Noncontributory. REVIEW OF SYSTEMS: Otherwise unremarkable 10-point review of systems. PHYSICAL EXAMINATION: GENERAL: He appears somewhat chronically ill, undernourished, is pleasant, cooperative, in [id number] distress. VITAL SIGNS: T-max of 100.8, pulse 76, respirations 16, blood pressure 155/77. SKIN: Warm, dry. HEENT: Normocephalic. Extraocular muscles intact. NECK: Supple. LUNGS: Somewhat diminished overall. Few scattered crackles at the bases. HEART: Regular. I do not appreciate a murmur. ABDOMEN: Mildly distended, soft, nontender. GENITOURINARY/RECTAL: Deferred. LABORATORY AND DIAGNOSTIC DATA: Initially urinalysis was noted above. Troponin less than 0.06. Electrolytes: Sodium 131, potassium 4.0, chloride 96, bicarbonate is 24, anion gap of 11, BUN and creatinine 27 and 1.0, estimated GFR of 74. Right hip x-ray showed no fracture or dislocation. TSH normal at 0.905. Blood cultures 1 out of 2 with growth of enterococcus and the urine noted enterococcus as well. Coronavirus testing was negative. Liver functions: AST of 98, ALT of 94, alkaline phosphatase of 160, CRP elevated at 147.4. CBC: White count 9.6, H and H 12.1 and 35.1, platelets of 187, sed rate of 73, PSA normal at 0.8. Echo had valvular vegetations. ASSESSMENT: Enterococcal septicemia, likely source of complicated genitourinary tract infection. At this point, seems to be low-grade septicemia, can entirely exclude an endovascular lesion, although there is nothing defined on echo. We will see how he does clinically. I will adjust therapy. We will repeat blood cultures and as there is increase in liver functions we will check ultrasound as well. Thank you. We will follow. <ELECTRONICALLY SIGNED> By: Ciro Reno MD 12/22/19 1200 1103 [id number] Reno MD /nt
--- NOTE | 2019-12-22 16:56 | NUR ---
ASSUMED CARE OF PATIENT THIS AM AT 0730. PATIENT IS ALERT AND ORIENTED X 4. HE C/O SEVERE HIP PAIN THIS AM. PATIENT WAS NPO FOR PROCEDURE AT THE TIME. DR HAMM NOTIFIED AND ORDERS WRITTEN. PATIENT MEDICATED FOR PAIN X 1 IV PRIOR TO PROCEDURE. PATIENT STATED THE MEDICATION ONLY HELPED A LITTLE PATIENT LATER GIVEN PO PAIN MEDICATION. FSBS MONITORED. PATIENT LATER TAKEN TO RADIOLOGY PER BED FOR CT AND RETURNED. IV FLUIDS CONTINUED. PATIENT STATES THAT HE IS FEELING BETTER THIS EVENING. POSITIVE BLOOD CX RESULT CALLED TO DR HAMM. REPEAT BLOOD CX ORDERED. TELE SHOWS NSR. NO FALLS OR INJURY. PATIENT HAS REFUSED TO WORK WITH PT AND OT THIS AM DUE TO HIS C/O PAIN. HE SAYS HE WILL TRY LATER.
[2019-12-23 06:09] VITALS: BP 112/60
--- NOTE | 2019-12-23 06:36 | NUR ---
PT SLEPT WELL OVERNIGHT. AOX4, CALM AND COOPERATIVE. NO LABS THIS MORNING. R HIP PAIN, TRAMADOL GIVEN HS WITH GOOD RESULT. TYLER DRAINING YELLOW URINE. HS ACCUCHECK 97, REFUSED INSULIN AND SNACK GIVEN. RFA IVF INFUSING PER PUMP, IV ABX GIVEN ORDERED. EDEMA TO HANDS AND LEGS. L HAND IV. TELE SR. ABLE TO USE CALL LITE AND MAKE NEEDS KNOWN.
[2019-12-23 08:35] VITALS: BP 124/72
--- NOTE | 2019-12-23 09:58 | NUR ---
ASSUMED CARE OF PT THIS AM AROUND 07- CERTIFIED FINANCIAL PLANNER IN PLACE ORDERED, TRACING SR- UPON ASSESSMENT PT NOTED TO BE RESTING IN BED, WATCHING TV- PT A&O X4- CONT OF BOWEL, TYLER IN PLACE D/D CLEAR YELLOW URINE- LCTA, RESP EVEN AND UN-LABORED- VSS, O2 SAT 92% ON RA- ABD SOFT/ROUND/NON-TENDER, BS X4 QUADS- LAST BM REPORTED X2 DAYS AGO- IV NOTED TO LEFT HAND INTACT, IVF INFUSSING PRESCRIBED- GOOD PO INTAKE NOTED THIS AM, BS MONITORED ORDERED- PT DENIES ANY C/O PAIN/DISCOMFORT AT THIS TIME- CALL LIGHT AND PERSONAL BELONGINGS WITH IN REACH- ALL NEEDS MET AT THIS TIME-WCTM
[2019-12-23 12:00] VITALS: BP 135/66
[2019-12-23 16:00] VITALS: BP 146/81
[2019-12-24 00:40] VITALS: BP 145/81
[2019-12-24 04:10] VITALS: BP 135/57
[2019-12-24 05:18] LABS: CALCIUM 8.1 mg/dL (8.5-10.1); CREATININE 0.8 mg/dL (0.6-1.3); MAGNESIUM 1.9 mg/dL (1.8-2.4); POTASSIUM 4.4 mmol/L (3.5-5.1)
[2019-12-24 08:00] VITALS: BP 158/75
[2019-12-24] MEDS ORDERED: SORINE 80 MG TA80 M1 PO (10:15)
[2019-12-24] MEDS ORDERED: ELIQUIS5 MG PO (10:15)
[2019-12-24] MEDS ORDERED: FINASTERIDE5 MG PO (10:15)
[2019-12-24] MEDS ORDERED: LISINOPRIL2.5 MG PO (10:15)
[2019-12-24] MEDS ORDERED: FLOMAX0.4 MG PO (10:15)
[2019-12-24 12:00] VITALS: BP 97/60
--- NOTE | 2019-12-24 14:59 | NUR ---
RIGHT BASILIC VESSEL ACCESSED FOR SINGLE LUMEN PICC. LINE PRE-TRIMMED TO 42CM AND ADVANCED TO THE ZERO RAVINDRA WITH NO RESISTANCE MET. UPPER ARM CIRCUMFERENCE ABOVE INSERTION SITE= 12 1/2". SHERLOCK MAGNET AND 3CG CONFIRMATION OF TIP TERMINATION AT THE CAVOATRIAL JUNCTION APPRECIATED. GUIDEWIRE REMOVED, LINE FLUSHED AND INSERTION SITE DRESSED. REPORT GIVEN TO EROS SPENCE.
--- NOTE | 2019-12-24 15:38 | NUR ---
SW followed up on dc planning for today; pt is not comfortable with managing pt needs at home at this time and pt and pt are hopeful for [place] re[place]. Pt accepted to inpt rehab on Friday; PATRICA discussed with pt nurse, Dr Wilde, and pt .
[2019-12-24 16:00] VITALS: BP 145/71
--- NOTE | 2019-12-24 18:30 | NUR ---
PT. AOX4, VSS, SR ON MONITOR, PAIN UNDER CONTROL. SPOKE TO PT'S REGARDIG INABILITY TO CARE FOR HIM AT HOME. COMMUNICATED TO HIDE DROPPER. PT SCHEDULED TO TRANSFER ON 12/25 TO REHAB 3RD FLOOR. PT. UP TO CHAIR FOR A FEW HOURS, TOLERATED WELL. CALL LIGHT AND PERSONAL BELONGINGS PLACED WITHIN REACH. PT. IN BED, RESTING WITH EYES CLOSED, IN NO APPARENT DISCOMFORT, AT SHIFT CHANGE.
--- NOTE | 2019-12-24 19:06 | NUR ---
PT. AGITATED AND RESTLESS AT START OF SHIFT. HALDOL AND ATIVAN ADMINISTERED, PO MEDS HELD TO PREVENT ASPIRATION. HANSEL NOTIFIED. DAUGHTER AT BEDSIDE. VSS, SR ON MONITOR, NO S/S OF PAIN. CALL LIGHT AND PERSONAL BELONGINGS PLACED WITHIN REACH. PT. IN BED, RESTING CALMLY AT THIS TIME, NO APPARENT DISCOMFORT.
[2019-12-24 20:00] VITALS: BP 135/70
[2019-12-25] VITALS: BP 126/64
[2019-12-25 04:00] VITALS: BP 161/78
[2019-12-25 08:00] VITALS: BP 151/82
[2019-12-25 11:27] VITALS: BP 125/59
[2019-12-25 15:30] VITALS: BP 126/64
--- NOTE | 2019-12-25 18:39 | NUR ---
PT. AOX4, VSS, PAIN UNDER CONTROL. ENCOURAGED PT TO TRANSFER TO BED SIDE CHAIR. CALL LIGHT AND PERSONAL BELONGINGS PLACED WITHIN REACH. PT. IN BED, WATCHING TV, IN NO APPARENT DISTRESS AT TIME OF SHIFT CHANGE.
[2019-12-25 19:30] VITALS: BP 137/71
[2019-12-26] VITALS: BP 132/61
[2019-12-26 07:45] VITALS: BP 157/75
[2019-12-26] MEDS ORDERED: AMPICILLIN 1 GM1 G1 IV (10:06)
[2019-12-26 12:18] VITALS: BP 111/69
[2019-12-26 14:01] VITALS: BP 111/69
--- NOTE | 2019-12-26 18:47 | NUR ---
pt. aox4, vss, sr on monitor, pain under control. call light and personal belongings placed within reach. Pt. transfered to rehab. discharge summary provided and explained, pt verbalized understanding. report given to rehab nurse. pt left on wc with personal belongings. pt in no apparent distress at time of transfer.
== END 2019-12-26 15:40 | DRG 871 ==
LOC: M.ERS 20:00 → M.2W 23:32 → M.TBA-ER 23:32 → M.ORTHSURG 12-18 00:49 → M.2W 12-18 11:54
PROVIDERS: Internal Medicine; Personal Emergency Response Attendant; ADMIT Family Medicine; ATTEND Family Medicine
PROC: BQ201ZZ Computerized Tomography (CT Scan) of Right Hip using Low Osmolar Contrast (ICD-10-PCS; 2019-12-22)
PROC: 06HY33Z Insertion of Infusion Device into Lower Vein, Percutaneous Approach (ICD-10-PCS; principal; 2019-12-24)
DX: A41.81 Sepsis due to Enterococcus (principal); N17.0 Acute kidney failure with tubular necrosis; I48.92 Unspecified atrial flutter; I42.9 Cardiomyopathy, unspecified; I50.22 Chronic systolic (congestive) heart failure; N12 Tubulo-interstitial nephritis, not specified as acute or chronic; E78.00 Pure hypercholesterolemia, unspecified; E86.0 Dehydration; E11.65 Type 2 diabetes mellitus with hyperglycemia; E11.42 Type 2 diabetes mellitus with diabetic polyneuropathy; E78.5 Hyperlipidemia, unspecified; K52.9 Noninfective gastroenteritis and colitis, unspecified; B95.2 Enterococcus as the cause of diseases classified elsewhere; G89.29 Other chronic pain; M16.11 Unilateral primary osteoarthritis, right hip; R33.9 Retention of urine, unspecified; Z20.828 Contact with and (suspected) exposure to other viral communicable diseases; M54.9 Dorsalgia, unspecified; I11.0 Hypertensive heart disease with heart failure; Z98.49 Cataract extraction status, unspecified eye; Z79.899 Other long term (current) drug therapy; Z79.4 Long term (current) use of insulin; Z87.891 Personal history of nicotine dependence

== ENCOUNTER 2019-12-26 12:31 | Inpatient (IN) | payer MEDICARE, OTHER ==
[~2019-12-26] VITALS: Ht 175.3 cm; Wt 91.2 kg
[~2019-12-26 12:31] MED LIST changes: +AMPICILLIN 1 GM1 G1 IV; +ELIQUIS5 MG PO; +FINASTERIDE5 MG PO; +FLOMAX0.4 MG PO; +LISINOPRIL2.5 MG PO; +SORINE 80 MG TA80 M1 PO
--- NOTE | 2019-12-26 18:06 | NUR ---
ASSUMMED CAR OF PT ON ADMISSION TO UNIT AT 1545, PT ALERT AND ORIENTED, PT TRANSFERS WITH MIN ASSIST GB AND WALKER FROM CHAIR TO BED, VOIDS PER URINAL, TAKING FOOD AND FLUIDS WELL, PT EDEMATOUS, HAS SMALL SCABS ON TOPS OF SOME TOES, PT STATES HE HAS NO FEELING IN FEET BHAVIN TO NEUROPATHY AND HIS HANDS ALSO HAVE DECREASED FEELING, PT EDUCATED ON REHAB ROUTINE, ORDERS OBTAINED, PICC LINE TO VENKATESH INTACT, HOURLY ROUNDING COMPLETED, ASSESSMENT COMPLETE, WILL CONTINUE TO MONITOR.
[2019-12-26 18:17] VITALS: BP 126/61
[2019-12-26 20:25] VITALS: BP 145/66
--- NOTE | 2019-12-26 20:25 | NUR ---
AWAKENED FOR REASSESSMENT AND MEDICATION PASS. INCONTINENT OF URINE. BOTTOM SHEET AND DRAW SHEET AND GOWN REPLACED. PATIENT WAS UNAWARE THAT HIS SHEETS WERE WET AND THINKS HE PROBABLE SPILLED HIS URINAL. SNACK PROVIDED. CALL LIGHT WITHIN REACH. TRANSFERRED FROM BED TO CHAIR AND BACK WT CGA, GAITBELT, WALKER. SLIGHTLY UNSTEADY.
--- NOTE | 2019-12-27 05:03 | NUR ---
SLEPT SOUNDLY. PATIENT TURNS SELF. GOOD BLOOD RETURN FROM RIGHT UPPER SINGLE LUMEN PICC LINE. ASSISTED WITH SITTING UP ON SIDE OF BED THIS MORNING TO USE THE URINAL. PATIENT HAS URINARY HESITANCY. ON FLOMAX. VOIDED 450 ML OF DARK YELLOW URINE. HOURLY ROUNDING IN PROGRESS.
[2019-12-27 05:06] LABS: HEMATOCRIT 31.3 % (42.0-52.0); HEMOGLOBIN 10.9 gm/dL (14.0-18.0); MCH 30.1 pg (26.0-34.0); MCHC 34.7 g/dL (28.0-37.0); MCV 86.7 fL (80.0-100.0); MPV 6.8 fl. (7.2-11.1); RBC 3.62 mil/uL (4.50-6.00); RDW-CV 13.7 % (10.5-14.5); WBC 9.5 thou/uL (4.0-11.0)
[2019-12-27 05:12] LABS: CALCIUM 8.2 mg/dL (8.5-10.1); CREATININE 0.8 mg/dL (0.6-1.3); POTASSIUM 4.1 mmol/L (3.5-5.1)
[2019-12-27 07:30] VITALS: BP 163/70
--- NOTE | 2019-12-27 13:03 | NUR ---
Nutrition: Pt admitted to rehab with UTI, debility. CHO controlled diet. H/o DM, HLD. Labs: BG 177, alb 2.4, prealb 11.4. Per [facility], usual wt was ~190#, this admission wt is recorded as 213# - moderate wt gain in one year. Protein stores are severely low - RD will order Beneprotein for added nutrition and strength. Mild risk. Will follow weekly in team binder.
--- NOTE | 2019-12-27 15:18 | NUR ---
ASSUMED CARE AT 0730. ALERT ORIENTED PLEASANT COOPERATIVE. HX OF DEBILITY TRANSFERS WITH SBA G BELT WALKER AND AMBULATES TO BR TO VOID X 2 FEEDS SELF WITH SET UP HAS NEUROPATHY IN HIS HANDS AND FEET EDEMA IN FEET AND ANKLES ELEVATED WHEN IN RECLINER. TAKES MEDS WITHOUT DIFFICULTY. USES CALL LIGHT APPROPRIATELY FOR ASSISTANCE. PARTICIPATING IN THERAPIES. 1 LUMEN PICC FOR IV ANTIBIOTICS VENKATESH PATENT. DENIES PAIN.
[2019-12-27 19:15] VITALS: BP 141/69
--- NOTE | 2019-12-27 19:40 | NUR ---
SITTING UP IN BED WATCHING TV. IN GOOD SPIRITS. DENIES DISCOMFORT. CALL LIGHT WITHIN REACH.
--- NOTE | 2019-12-28 05:39 | NUR ---
INCONTINENT OF LOOSE STOOL X ONE. ABHISHEK CARE GIVEN. PATIENT UPSET THAT WOULDN'T ORDER IMMODIUM. STATES HE TAKES OVER THE COUNTER IMMODIUM AT HOME WITH GOOD RESULTS. AMBULATED TO THE BATHROOM TO VOID X 3 DURING THE NIGHT. HOURLY ROUNDING IN PROGRESS.
[2019-12-28 08:45] VITALS: BP 159/80
--- NOTE | 2019-12-28 16:55 | NUR ---
ALERT AND ORIENTED X4. UP WITH 1 ASSIST, GAIT BELT AND WALKER. DENIED NEED FOR PAIN MEDICATION WHEN OFFERED. HAD [address] NOTIFIED OF LOOSE STOOL THIS AM AND NEW MEDICATION ORDERED. CONTINUES ON IV ANTIBIODIC WITHOUT ADVERSE REACTIONS OR SIDE EFFECTS. USUALLY USES CALL LIGHT WHEN NEEDING ASSIST. FALL PRECAUTIONS IN PLACE. BED ALARM AND CHAIR ALARM USED.
--- NOTE | 2019-12-28 17:05 | NUR ---
SW spoke with pt to complete initial assessment, introduce self, and SW role on inpt rehab. Pt lives at home with . Pt is concerned if pt is not more functional at time of dc and wanted to consider SNF options if needed. Pt is hopeful to be able to return home with DME and HH. SW to continue to follow to assist with safe dc planning.
[2019-12-28 20:03] VITALS: BP 165/73
[2019-12-29 05:23] LABS: ABSOLUTE BASOPHILS 0.1 thou/uL (0.0-0.2); ABSOLUTE EOSINOPHILS 0.3 thou/uL (0.0-0.7); ABSOLUTE LYMPHOCYTES 1.6 thou/uL (0.8-5.3); ABSOLUTE MONOCYTES 0.7 thou/uL (0.0-1.2); ABSOLUTE NEUTROPHILS 6.9 thou/uL (1.6-8.1); EOSINOPHILS 3.4 %; HEMATOCRIT 33.7 % (42.0-52.0); HEMOGLOBIN 11.7 gm/dL (14.0-18.0); LYMPHOCYTES 16.5 %; MCH 29.4 pg (26.0-34.0); MCHC 34.8 g/dL (28.0-37.0); MCV 84.5 fL (80.0-100.0); MONOCYTES 7.2 %; MPV 6.2 fl. (7.2-11.1); NUCLEATED RBCS 0 /100WBC; PLATELET COUNT* 404 thou/uL (150-400); POLYS 71.9 %; RBC 3.99 mil/uL (4.50-6.00); RDW-CV 13.3 % (10.5-14.5); WBC 9.5 thou/uL (4.0-11.0)
[2019-12-29 05:32] LABS: ALBUMIN 2.3 g/dL (3.4-5.0); CALCIUM 8.3 mg/dL (8.5-10.1); CREATININE 0.8 mg/dL (0.6-1.3); POTASSIUM 3.8 mmol/L (3.5-5.1); TOTAL BILIRUBIN 0.7 mg/dL (<0.1-1.0); TOTAL PROTEIN 6.4 g/dL (6.4-8.2)
--- NOTE | 2019-12-29 05:40 | NUR ---
PATIENT ALERT/ORIENTED X4 ABLE TO MAKE NEEDS KNOWN. PT UP WITH G.BELT AND WALKER TO BATHROOM TO VOID. PT WITH PICC LINE IN LT UPPER ARM FOR ANXIBIOTICS. PT TAKES IMODIUM FOR LOOSE STOOLS; WEARS BRIEFS DUE TO EPISODE OF INCONTINENCE WHILE HERE. PT ON ROOM AIR. PT WITH EDEMA IN LOWER EXTREMITIES. BLOOD SUGAR AT 2100 = 261; LISPRO [address] ORDER. PT DENIES PAIN DURING THIS SHIFT. FREQUENTLY USED ITEMS AND CALL LIGHT WITHIN REACH. SIDERAILS UPX2 AND BED ALARM ON. WILL CONTINUE TO MONITOR.
[2019-12-29 07:56] VITALS: BP 151/74
--- NOTE | 2019-12-29 17:28 | NUR ---
SW met with pt to review team conference summary and plan for pt to remain on rehab unit with possible dc next 01/05. Pt wanted earlier than this and was upset. Pt said that he might as well talk to his cup. SW discussed talking more with Dr Ramirez about what pt may be able to do on rehab to improve functioning and ability to be able to return home. Pt interested in GI consult. SW spoke with pt to prepare her for possible dc next . SW to work with team to determine possible needs for wc, bsc, and transfer shower bench. Pt said she would purchase shower bench and SW to follow to assist with other resources and referrals.
--- NOTE | 2019-12-29 18:39 | NUR ---
ALERT AND ORIENTED X4. UP WITH 1 ASSIST GAIT BELT AND WALKER. DENIES NEED FOR PAIN MEDICATION. TAKING MEDICATION 30 MINUTES BEFORE MEALS TO HELP WITH DIARRHEA. NEW GI CONSULT AND REGISTERED NURSE MATERNAL CHILD CONSULT ORDERED. CONTINUES TO RECEIVE IV ANTIBIODICS WITH NO ADVERSE REACTIONS OR SIDE EFFECTS. USES CALL LIGHT WHEN NEEDING ASSIST, FALL PRECAUTIONS IN PLACE. BED ALARM AND CHAIR ALARM USED.
[2019-12-29 20:00] VITALS: BP 171/91
--- NOTE | 2019-12-29 20:10 | NUR ---
SITTING UP IN RECLINER. IN GOOD SPIRITS. DENIES DISCOMFORT. CALL LIGHT WITHIN REACH.
--- NOTE | 2019-12-30 05:16 | NUR ---
UP X TWO DURING THE NIGHT TO THE BATHROOM TO VOID. GAIT MUCH STEADIER THAN TWO NIGHTS AGO. GOOD BLOOD RETURN FROM RIGHT UPPER ARM PICC LINE. REMAINS ON IV ANTIBIOTIC. HOURLY ROUNDING IN PROGRESS.
[2019-12-30 08:00] VITALS: BP 117/73
--- NOTE | 2019-12-30 17:03 | NUR ---
ASSUMMED CARE OF PT AT 0730, PT ALERT AND ORIENTED, PT TRANSFERS WITH ASSIST OF 1, GB WALKER, AMBULATES TO BATHROOM TO VOID, NO DIARHEA THIS SHIFT, IMMODIUM GIVEN PER ORDER, TAKING FOOD AND FLUIDS WELL, PT C/O MILD PAIN THIS AM, MEDICATED PER ORDER, PICC LINE PATENT, EDEMA IN LOWER EXTREMITIES, ELEVATED, BLOOD GUCOSE ELEVATED NEW ORDERS OBTAINED FOR INCREASE IN INSULIN, HOURLY ROUNDING COMPLETED, ASSESSMENT COMPLETE, PARTICIPATED IN ALL THERAPIES, WILL COTNINUE TO MONITOR.
--- NOTE | 2019-12-30 19:38 | CON ---
[address] [address] CONSULTATION Name: MADELEINEZENON GANN Room: [address] IN M.R.#: [id number] Admission: 12/26/19 Attend Phys: Flaco Ramirez MD Discharge: Date of : 52 Report #: [id number] THIS REPORT FOR: //name// cc: Alyse Rhodes Tammy RNP ~ THIS REPORT FOR: //name// CC: Flaco Rhodes FRAME STRIPPER DICTATED BY: Vivian Montague [facility] DATE OF SERVICE: 12/30/2019 Please note at the time of this dictation, the patient was seen and physically examined by myself. REASON FOR CONSULTATION: Diarrhea. HISTORY OF PRESENT ILLNESS: This 69-year-old man who was admitted to the rehab unit for physical debility related to weakness, hyperglycemia and dehydration following a urinary tract infection with sepsis requiring following IV antibiotics at that time. The patient had been off of his Imodium, which he has been taking fairly regularly for his diarrhea. He underwent an EGD and colonoscopy with Dr. Elkins in 05/2019 for dysphagia and diarrhea that showed a Schatzki's ring that he was dilated. Colonoscopy showed diverticulosis. Random colon biopsies were negative. He had a mid ascending tubulovillous and tubular adenoma with a repeat in 3 years. The patient denies any upper GI symptoms at this time. He did state that yesterday he had 3 or 4 pretty liquid stools with some urgency shortly after he had eaten which is likely what happens to him when that happens. The patient also has not been taking his Metamucil since he has been here in the hospital either. ALLERGIES: No known drug allergies. MEDICATIONS: See MAR. PAST MEDICAL HISTORY: Atrial fibrillation/flutter, benign prostatic hypertrophy, cardiomyopathy, history of cellulitis, diabetes, chronic diarrhea like irritable bowel towards diarrhea, recent urinary tract infection with sepsis. PAST SURGICAL HISTORY: Right knee repair and [place] [address] CONSULTATION Name: MADELEINEZENON AZEEM Room: [address] IN [facility].#: [id number] Admission: 12/26/19 Attend Phys: Flaco Ramirez MD Discharge: Date of : 52 Report #: [id number] FAMILY HISTORY: Noncontributory. SOCIAL HISTORY: Former smoker. Denies any alcohol or illegal drug use. REVIEW OF SYSTEMS: Twelve-point review of systems is essentially negative except what is mentioned in the HPI. PHYSICAL EXAMINATION: VITAL SIGNS: Temperature 36.7, pulse 72, respirations 18, blood pressure 117/73. HEART: Irregular rate and rhythm. LUNGS: Clear. ABDOMEN: Soft, positive bowel sounds in all 4 quadrants with no masses or tenderness noted. LABORATORY DATA: Hemoglobin 10.4, white count 9.5, and platelets 400. GFR is 96. IMPRESSION: 1. Irritable bowel syndrome towards diarrhea. Last colon in 05/2019 negative, random colon biopsies 2. History of colon polyps, tubulovillous adenoma and tubular adenoma, repeat colon in 05/2022. 3. Weakness. 4. Anticoagulant therapy, Eliquis secondary to atrial fibrillation. PLAN: 1. Reinforce Imodium 2 mg before meals t.i.d. 2. Add a packet of Metamucil daily to his regimen. 3. Nothing further to offer and we will sign off at this time. Thank you for allowing us to participate in this patient's care. Please do not hesitate to call with any questions in regard to this consult. <ELECTRONICALLY SIGNED> By: Justin Elkins DO 12/30/19 1938 [id number] Elkins DO /nt
[2019-12-30 20:19] VITALS: BP 148/67
--- NOTE | 2019-12-31 04:52 | NUR ---
ASSUMED PT CARE AT 1930. PT ALERT AND ORIENTED X4, POLITE AND COOPERATIVE WITH CARES. DENIES PAIN. PT UP TO BATHROOM WITH ASSIST OF ONE, GAIT BELT AND WALKER. PICC LINE TO RIGHT UPPER ARM PATENT. EDEMA TO BLE. USES CALL LIGHT APPROPRIATELY. CALL LIGHT IN REACH. BED ALARM ON FOR SAFETY. HOURLY ROUNDING IN PROGRESS, WILL CONTINUE TO MONITOR.
[2019-12-31 07:59] VITALS: BP 98/56
--- NOTE | 2019-12-31 16:46 | NUR ---
ASSUMMED CARE OF PT AT 0730, PT ALERT AND ORIENTED, PT TRANSFERS WITH ASSIST OF 1, GB WALKER, PICC LINE TO VENKATESH PATENT AND INTACT, DENIES PAIN, IMMODIUM GIVEN PER SCHEDULE WITH NO LOOSE STOOLS THIS SHIFT, AMB TO TOILET TO VOID, TAKING FOOD AND FLUIDS WELL, EDEMA IN LEGS, ELEVATED, BP LOW THIS AM, 98/56, BP MEDICATION HELD, INFORMED PHYSICIAN, PARTICIPATED IN ALL THERAPIES, HOURLY ROUNDING COMPLETED, ASSESSMENT COMPLETE, WILL CONTINUE TO MONITOR.
[2019-12-31 20:00] VITALS: BP 119/59
--- NOTE | 2020-01-01 05:00 | NUR ---
ASSUMED PT CARE AT 1930. PT ALERT AND ORIENTED X4, POLITE AND COOPERATIVE WITH CARES. PT UP TO BATHROOM TO VOID WITH SBA, GAIT BELT AND WALKER. NO STOOL THIS SHIFT. PT BLE EDEMATOUS. PT HAS NEUROPATHY IN HIS FEET, WALKS WITH SHUFFLING GAIT. DENIES PAIN. PICC TO RIGHT UPPER ARM FLUSHES EASILY WITH GOOD BLOOD RETURN. CALL LIGHT IN REACH. BED ALARM ON FOR SAFETY. HOURLY ROUNDING IN PROGRESS, WILL CONTINUE TO MONITOR.
[2020-01-01 07:30] VITALS: BP 168/79
--- NOTE | 2020-01-01 16:13 | NUR ---
ASSUMED CARE AT 0730. ALERT ORIENTED PLEASANT COOPERATIVE. HX OF ENCEPHALOPATHY SEPSIS. TRANSFERS WITH SBA G BELT WALKER AMBULATES TO TOILET TO VOID. USES CALL LIGHT APPROPRIATELY FOR ASSISTANCE. DENIES PAIN OR REQUESTS. APPETITE GOOD FEEDS SELF TAKES MEDS WITHOUT DIFFICULTY. BILATERAL EDEMA IN FEET EVEN WITH ELEVATION, TUBIGRIPS ORDERED AND APPLIED THIS AFTERNOON. HAS NEUROPATHY HANDS AND FEET. PARTICIPATING IN THERAPIES THROUGHOUT THE DAY. UP IN RECLINER TODAY.
[2020-01-01 20:00] VITALS: BP 134/70
--- NOTE | 2020-01-02 05:07 | NUR ---
ASSUMED PT CARE AT 1930. PT ALERT AND ORIENTED X4, POLITE AND COOPERATIVE WITH CARES. PT SITTING UP IN RECLINER AT SHIFT CHANGE. TAKES PILLS WITH WATER WITHOUT DIFFICULTY. PT UP TO BATHROOM TO VOID X5 THIS SHIFT WITH ASSIST OF ONE, GAIT BELT AND WALKER. PT HAS NEUROPATHY IN HIS HANDS AND FEET, WALKS WITH SHUFFLING GAIT. BILATERAL EDEMA IN FEET. PICC TO UPPER RIGHT ARM FLUSHES EASILY WITH GOOD BLOOD RETURN. USES CALL LIGHT APPROPRIATELY. BED ALARM ON FOR SAFETY. HOURLY ROUNDING IN PROGRESS, WILL CONTINUE TO MONITOR. +
[2020-01-02 08:00] VITALS: BP 110/57
--- NOTE | 2020-01-02 17:54 | NUR ---
PT SAT IN A RECLINER THE WHOLE DAY. VOIDS AT BATHROOM, WALKED WITH THE HELP OF A WALKER, MIN ASSIST. EATING ALMOST 100% OF HIS MEALS. NO DIARRHEA THIS SHIFT. DENIES ANY PAIN.
[2020-01-02 20:00] VITALS: BP 126/60
--- NOTE | 2020-01-03 05:07 | NUR ---
ASSUMED CARES AT 1920. ALERT AND ORIENTED. PLEASANT. DENIED ANY PAIN. BLE EDEMA 2-3+. TUBIGRIPS BLE. SL PICC VENKATESH FLUSHES WITH GOOD BLOOD RETURN. MIN ASSIST WITH GAIT BELT AND WALKER. UP TO BR. DID HAVE LOOSE STOOL X 1. SLEPT WELL OTHERWISE. CALL LIGHT IN REACH AND BED ALARM ON.
[2020-01-03 07:30] VITALS: BP 149/78
--- NOTE | 2020-01-03 17:45 | NUR ---
PT A&OX4 VSS. SINGLE LUMEN PICC TO VENKATESH, DRESSING C/D/I, COBAN SECURING LINE WELL. SITE VISUALIZED, NO REDNESS NOTED, LINE FLUSHES AND RUNS WELL. IV ABX ADMINISTERED ORDERED. PT IS ACCUCHECK, INSULIN ADMINISTERED PER ORDERS. PT REMAINED CONTINENT THIS SHIFT, BRIEFS ON FOR INTERMITTENT STRESS INCONTINENCE. URINAL IN REACH OF PT. PT UP IN RECLINER, CALL LIGHT AND PHONE IN REACH. TUBIGRIP TO BLE R/T TO EDEMA. PT C/O CHRONIC LOOSE STOOLS, LOPERIMIDE ADMINISTERED PRIOR TO MEALS ORDERED. NO C/O PAIN THIS SHIFT. PT PARTICIPATED IN THERAPIES. FALL PRECAUTIONS REMAIN IN PLACE. WILL CONTINUE TO MONITOR.
[2020-01-03 19:15] VITALS: BP 145/81
--- NOTE | 2020-01-04 05:02 | NUR ---
ASSUMED PT CARE AT 1930. PT ALERT AND ORIENTED X4, POLITE AND COOPERATIVE WITH CARES. DENIES PAIN. BLE EDEMA 2-3+. TUBIGRIPS TO BLE. PICC TO VENKATESH, FLUSHES EASILY WITH GOOD BLOOD RETURN. UP TO BATHROOM TO VOID WITH MIN ASSIST, GAIT BELT AND WALKER. NO STOOL THIS SHIFT. SLEPT WELL OVERNIGHT. CALL LIGHT IN REACH. BED ALARM ON FOR SAFETY. HOURLY ROUNDING IN PROGRESS, WILL CONTINUE TO MONITOR.
[2020-01-04 08:00] VITALS: BP 151/76
--- NOTE | 2020-01-04 16:21 | NUR ---
ASSUMMED CARE OF PT [id number], PT ALERT AND ORIENTED , PT TRANSFERS WITH ASSIST OF 1, GB WALKER, DENIED NEED FOR PAIN MEDICATION THIS SHIFT, PICC LINE PATENT IN RIGHT UPPER EXTREMITY, EDEMA IN BILATERAL LOWER LEGS, ELEVATED, AMBULATES TO BATHROOM, TAKING FOOD AND FLUIDS WELL, PARTICIPATED IN ALL THERAPIES, HOURLY ROUNDING COMPLETED, ASSESSMENT COMPLETE, WILL CONTINUE TO MONITOR.
--- NOTE | 2020-01-04 16:56 | NUR ---
SW spoke with pt and family in preparation for team conference tomorrow. Pt continues to express concern for pt dc home and ability to care for pt. SW provided recommendations for wc, bsc and HH services to follow. Pt said that would be helpful but then SW received call from pt dtr who said that pt called crying and upset because she does not want HH in the home and she does not want pt home because she is unable to care for him, clean up his accidents, etc. SW explained that team will discuss pt progress in team tomorrow and will know more details after team but that if pt would qualify or need SNF, that would be something that team could present to pt as an option but that pt would need to be in agreement with plan and there would be a need for pt to be able to go to SNF. SW to continue to follow to assist with safe dc planning.
[2020-01-04 20:00] VITALS: BP 113/58
--- NOTE | 2020-01-05 05:12 | NUR ---
ASSUMED PT CARE AT 1930. PT ALERT AND ORIENTED X4, POLITE AND COOPERATIVE WITH CARES. PT UP WITH ONE, GAIT BELT AND WALKER TO BATHROOM TO VOID. NO STOOL THIS SHIFT. DENIES PAIN. PICC TO RIGHT UPPER ARM PATENT. EDEMA TO BLE. PT SLEPT WELL OVERNIGHT. USES CALL LIGHT APPROPRIATELY. CALL LIGHT IN REACH. BED ALARM ON FOR SAFETY. HOURLY ROUNDING IN PROGRESS, WILL CONTINUE TO MONITOR.
[2020-01-05 08:00] VITALS: BP 170/76
--- NOTE | 2020-01-05 16:24 | NUR ---
ASSESSMENT COMPLETED DOCUMENTED THIS MORNING. UP IN ROOM WITH THERAPIES AND PLANNING ON DISCHARGE HOME TOMORROW. BGL 224/204 WITH INSULIN GIVEN PER SS ORDERED. PATIENT IS DEMONSTRATING INDEPENDENCE WITH TOILET HYGIENE, HAND WASHING AND DRESSING. ALERT AND PLEASANT WITH NO CHANGES IN CONDITION NOTED TODAY.
--- NOTE | 2020-01-05 17:23 | NUR ---
PATRICA and Dr Ramirez reviewed team conference summary with pt and plan for pt to be able to dc home with tomorrow, 01/05. Pt does not need HH services since pt has met all goals and pt/family decline HH as they do not want more people coming in to the home with Covid concerns. PATRICA called pt and discussed dc planning and reviewed pt progress, pt in agreement with plan and will accept pt home tomorrow afternoon, she will provide ride possibly around 3 pm.
[2020-01-05 19:41] VITALS: BP 173/85
--- NOTE | 2020-01-06 06:10 | NUR ---
PT SLEPT WELL OVERNIGHT WITHOUT COMPLAINTS OF PAIN OR PROBLEMS. ABLE TO USE CALL LITE AND MAKE NEEDS KNOWN. VENKATESH PICC SL, ABX GIVEN ORDERED. BLE EDEMA, TUBIGRIPS ON. HS ACCUCHECK 180, INSULIN GIVEN WITH SNACK. NO LABS THIS MORNING. AOX4, ABLE TO USE CALL LITE AND MAKE NEEDS KNOWN. UP WITH CLARK ZELAYA SBStephanie. ANTICIPATING DISCHARGE HOME TODAY.
[2020-01-06 08:00] VITALS: BP 140/62
[2020-01-06] MEDS ORDERED: AMOXICILLIN500 M1 PO (10:01)
[2020-01-06] MEDS ORDERED: FLORANEX TABLE1 EACH PO (10:01)
[2020-01-06] MEDS ORDERED: LOPERAMIDE 2 MG2 M1 PO (11:41)
[2020-01-06] MEDS ORDERED: CHOLESTYRAMINE P4 GM PO (11:41)
[2020-01-06] MEDS ORDERED: ELIQUIS5 MG PO (11:43)
[2020-01-06] MEDS ORDERED: FLOMAX0.4 MG PO (11:43)
[2020-01-06] MEDS ORDERED: FINASTERIDE5 MG PO (11:43)
[2020-01-06] MEDS ORDERED: SORINE 80 MG TA80 M1 PO (11:43)
[2020-01-06] MEDS ORDERED: LISINOPRIL2.5 MG PO (11:43)
[2020-01-06 12:39] VITALS: BP 140/62
[2020-01-06 14:17] VITALS: BP 140/62
--- NOTE | 2020-01-06 15:07 | NUR ---
ASSESSMENT COMPLETED DOCUMENTED THIS MORNING, PATIENT ANXIOUS TO GO HOME TODAY. 1430 RUE PICC LINE DCD WITH PRESSURE DRESSING APPLIED AND INSTRUCTED NOT TO REMOVE FOR 24 HOURS, WELL WHAT TO DO IF BLEEDING WERE TO OCCUR. 1445 DC INSTRUCTIONS, AND PRESCRIPTIONS GIVEN WITH UNDERSTANDING VERBALIZED REVIEWED ALL F/U APPOINTMENTS AND PURPOSES OF ALL MEDS, SIGNATURE OBTAINED. 1500 PATIENT DCD VIA W/C, ALL PERSONAL BELONGINGS PACKED AND THERAPY TRANSPORTED FOR A CAR TRANSFER, DCD VIA FAMILY CAR ACCOMPANIED BY SPOUSE.
[2020-01-06 15:12] VITALS: BP 140/62
--- NOTE | 2020-01-06 17:03 | NUR ---
Pt dc today to home with and no HH needs as well as pt/family declined HH services to be arranged regardless of need. Pt provided ride home.
== END 2020-01-06 15:00 | disposition home or self-care (01) | DRG 947 ==
LOC: M.REH 12:31
PROVIDERS: Specialist; ADMIT Physical Medicine & Rehabilitation; ATTEND Physical Medicine & Rehabilitation
DX: R53.81 Other malaise (principal); N17.0 Acute kidney failure with tubular necrosis; A41.81 Sepsis due to Enterococcus; N39.0 Urinary tract infection, site not specified; I50.22 Chronic systolic (congestive) heart failure; I48.92 Unspecified atrial flutter; N12 Tubulo-interstitial nephritis, not specified as acute or chronic; E86.0 Dehydration; E11.40 Type 2 diabetes mellitus with diabetic neuropathy, unspecified; E78.00 Pure hypercholesterolemia, unspecified; R33.9 Retention of urine, unspecified; I48.91 Unspecified atrial fibrillation; M16.11 Unilateral primary osteoarthritis, right hip; N40.0 Benign prostatic hyperplasia without lower urinary tract symptoms; K58.0 Irritable bowel syndrome with diarrhea; Z86.010 Personal history of colon polyps; Z79.01 Long term (current) use of anticoagulants; Z87.891 Personal history of nicotine dependence

== ENCOUNTER 2020-01-22 14:33 | Inpatient (IN) | payer MEDICARE, OTHER ==
[~2020-01-22] VITALS: Ht 175.3 cm; Wt 86.2 kg
[~2020-01-22 14:33] MED LIST changes: +AMOXICILLIN500 M1 PO; +CHOLESTYRAMINE P4 GM PO; +FLORANEX TABLE1 EACH PO; +LOPERAMIDE 2 MG2 M1 PO
[2020-01-22 14:39] VITALS: BP 164/84
[2020-01-22 15:06] LABS: ABSOLUTE EOSINOPHILS 0.2 thou/uL (0.0-0.7); ABSOLUTE LYMPHOCYTES 1.6 thou/uL (0.8-5.3); ABSOLUTE MONOCYTES 0.5 thou/uL (0.0-1.2); ABSOLUTE NEUTROPHILS 5.8 thou/uL (1.6-8.1); BASOPHILS 0.5 %; EOSINOPHILS 2.3 %; HEMOGLOBIN 14.5 gm/dL (14.0-18.0); LYMPHOCYTES 20.1 %; MCH 29.4 pg (26.0-34.0); MCHC 35.3 g/dL (28.0-37.0); MONOCYTES 5.9 %; MPV 8.4 fl. (7.2-11.1); NUCLEATED RBCS 0 /100WBC; PLATELET COUNT* 161 thou/uL (150-400); POLYS 71.2 %; RBC 4.94 mil/uL (4.50-6.00); RDW-CV 14.2 % (10.5-14.5); WBC 8.2 thou/uL (4.0-11.0)
[2020-01-22 15:12] LABS: CALCIUM 8.9 mg/dL (8.5-10.1); CREATININE 0.8 mg/dL (0.6-1.3); POTASSIUM 4.5 mmol/L (3.5-5.1)
[2020-01-22 15:18] LABS: ALBUMIN 4.2 g/dL (3.4-5.0); TOTAL BILIRUBIN 1.7 mg/dL (<0.1-1.0); TOTAL PROTEIN 8.2 g/dL (6.4-8.2)
[2020-01-22 18:23] LABS: CALCIUM 8.3 mg/dL (8.5-10.1); CREATININE 0.8 mg/dL (0.6-1.3); MAGNESIUM 1.8 mg/dL (1.8-2.4); POTASSIUM 3.9 mmol/L (3.5-5.1)
[2020-01-22 19:09] LABS: CHOLESTEROL 142 mg/dL (<200); HDL CHOLESTEROL 41 mg/dL (>40); LDL CHOLESTEROL 47 mg/dL (<100); TC:HDL 3.5 Ratio (Not establshd); TRIGLYCERIDE 274 mg/dL (<150); VLDL 55 mg/dL (<40)
[2020-01-22 19:10] LABS: SERUM ASSESSMENT Clear
[2020-01-22 20:19] VITALS: BP 121/75
[2020-01-22 20:30] VITALS: BP 127/77
[2020-01-23] VITALS: BP 95/47
[2020-01-23 03:55] VITALS: BP 95/51
[2020-01-23 04:59] LABS: ABSOLUTE EOSINOPHILS 0.2 thou/uL (0.0-0.7); ABSOLUTE LYMPHOCYTES 2.2 thou/uL (0.8-5.3); ABSOLUTE MONOCYTES 0.6 thou/uL (0.0-1.2); ABSOLUTE NEUTROPHILS 3.5 thou/uL (1.6-8.1); BASOPHILS 0.6 %; EOSINOPHILS 3.6 %; HEMOGLOBIN 12.6 gm/dL (14.0-18.0); LYMPHOCYTES 32.7 %; MCH 28.9 pg (26.0-34.0); MCHC 34.9 g/dL (28.0-37.0); MCV 82.7 fL (80.0-100.0); MONOCYTES 9.6 %; MPV 8.4 fl. (7.2-11.1); NUCLEATED RBCS 0 /100WBC; PLATELET COUNT* 142 thou/uL (150-400); POLYS 53.5 %; RBC 4.36 mil/uL (4.50-6.00); RDW-CV 14.3 % (10.5-14.5); WBC 6.6 thou/uL (4.0-11.0)
[2020-01-23 05:15] LABS: CALCIUM 8.5 mg/dL (8.5-10.1); CREATININE 0.9 mg/dL (0.6-1.3); POTASSIUM 3.3 mmol/L (3.5-5.1)
--- NOTE | 2020-01-23 08:04 | NUR ---
PT RECIEVED FROM ED IN ROOM 205. ALERT AND ORIENTED X4. DENIES PAIN AND SOB. PT IS VERY WEAK, UP WITH TWO TO BSC. C/O DIZZINESS. CALL LIGHT WITHIN REACH AND BED IN LOW POSITION. HOURLY ROUNDING DONE FOR PT SAFETY.
[2020-01-23 08:44] VITALS: BP 131/72
[2020-01-23 12:00] VITALS: BP 104/54
--- NOTE | 2020-01-23 14:12 | EKG ---
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1950 Requested By: Brian Siddiqui Order Number: [id number] MD: Matheus Mccray Measurements Intervals [place] Rate: 72 P: 52 VT: 58 QRS: 34 QRSD: 119 T: 96 QT: 444 QTc: 486 Interpretive Statements Sinus rhythm Short VT interval artifact noted Nonspecific intraventricular conduction delay Borderline repolarization abnormality Compared to ECG 12/20/2019 09:18:03 Short VT interval now present Atrial abnormality now present Electronically Signed On 01-23-2020 14:12:44 CDT by Matheus Mccray [email or web address] <ELECTRONICALLY SIGNED> By: Matheus Mccray MD, [facility] 01/23/20 1412 1441 1441 Matheus Mccray MD, [facility] /EPI
[2020-01-23 16:00] VITALS: BP 114/63
--- NOTE | 2020-01-23 20:01 | NUR ---
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 However, pt states he is feeling much better today. Up with walker and SBA to bathroom. IVF dc'd per physician order. K+ 3.3 this am. Replaced per electrolyte replacement orders; will recheck at 2200. VSS. Pt reports he is hopeful of being discharged tomorrow. Will continue to monitor.
[2020-01-23 21:00] VITALS: BP 127/64
[2020-01-24] VITALS: BP 144/72
[2020-01-24 03:05] LABS: GLYCOHEMOGLOBIN (HGB A1C) 9.9 % (4.8-5.6)
[2020-01-24 04:00] VITALS: BP 147/80
--- NOTE | 2020-01-24 05:33 | NUR ---
Assumed pt care at 2100. Pt denies pain. Room air, Sinus rhythm on tele. Around 2330, pt sate he feels "funny". He thinks his BS low, Recheck BS its 53. Pt requested box lunch. Now BS back to 224. Pt state he feels a lot better. Pt still get dizzy when getting up. Safety precaution, call light within reach, hourly roundinng, will continue to monitor.
[2020-01-24 08:00] VITALS: BP 87/58
[2020-01-24 08:32] LABS: CALCIUM 9.2 mg/dL (8.5-10.1); POTASSIUM 4.8 mmol/L (3.5-5.1)
[2020-01-24 12:32] VITALS: BP 104/56
[2020-01-24 13:23] VITALS: BP 104/56
--- NOTE | 2020-01-24 15:34 | NUR ---
Pt is A&O. Resides at home with his . Independent. Pt uses a walker for mobility. No hx of HH or SNF. Hx of [facility] ARU. Pt discharged to home today, declined HH.
== END 2020-01-24 14:15 | disposition home or self-care (01) | DRG 641 ==
LOC: M.ERS 14:33 → M.2W 15:54 → M.TBA-ER 15:54 → M.2W 20:13
PROVIDERS: Emergency Medicine Emergency Medical Services; ADMIT Internal Medicine; ATTEND Internal Medicine
DX: E87.1 Hypo-osmolality and hyponatremia (principal); I50.22 Chronic systolic (congestive) heart failure; E78.5 Hyperlipidemia, unspecified; E11.42 Type 2 diabetes mellitus with diabetic polyneuropathy; K52.9 Noninfective gastroenteritis and colitis, unspecified; M54.9 Dorsalgia, unspecified; E11.65 Type 2 diabetes mellitus with hyperglycemia; G89.29 Other chronic pain; N40.0 Benign prostatic hyperplasia without lower urinary tract symptoms; M16.11 Unilateral primary osteoarthritis, right hip; T50.3X5A Adverse effect of electrolytic, caloric and water-balance agents, initial encounter; I11.0 Hypertensive heart disease with heart failure; Z79.899 Other long term (current) drug therapy; Z87.891 Personal history of nicotine dependence; Z79.01 Long term (current) use of anticoagulants; Z03.818 Encounter for observation for suspected exposure to other biological agents ruled out; Y92.89 Other specified places as the place of occurrence of the external cause

== ENCOUNTER 2020-09-24 01:10 | Inpatient (IN) | payer MEDICARE, OTHER ==
[~2020-09-24] VITALS: Ht 175.3 cm; Wt 87.5 kg
[2020-09-24] VITALS (7 sets, daily range): BP systolic 121–160; BP diastolic 55–84
[2020-09-24 01:42] LABS: ABSOLUTE BASOPHILS 0.1 thou/uL (0.0-0.2); ABSOLUTE EOSINOPHILS 0.1 thou/uL (0.0-0.7); ABSOLUTE LYMPHOCYTES 1.4 thou/uL (0.8-5.3); ABSOLUTE MONOCYTES 1.4 thou/uL (0.0-1.2); ABSOLUTE NEUTROPHILS 9.8 thou/uL (1.6-8.1); BASOPHILS 0.4 %; EOSINOPHILS 0.6 %; HEMATOCRIT 34.9 % (42.0-52.0); HEMOGLOBIN 11.7 gm/dL (14.0-18.0); LYMPHOCYTES 10.7 %; MCH 26.8 pg (26.0-34.0); MCHC 33.5 g/dL (28.0-37.0); MCV 80.1 fL (80.0-100.0); MONOCYTES 10.9 %; NUCLEATED RBCS 0 /100WBC; PLATELET COUNT* 279 thou/uL (150-400); POLYS 77.4 %; RBC 4.35 mil/uL (4.50-6.00); RDW-CV 14.2 % (10.5-14.5); WBC 12.6 thou/uL (4.0-11.0)
[2020-09-24 01:50] LABS: CALCIUM 9.5 mg/dL (8.5-10.1); CREATININE 1.1 mg/dL (0.6-1.3); POTASSIUM 4.6 mmol/L (3.5-5.1)
[2020-09-24 01:52] LABS: PROTIME 10.7 Seconds (9.20-11.50)
[2020-09-24 02:00] LABS: MAGNESIUM 1.9 mg/dL (1.8-2.4); TOTAL BILIRUBIN 1.3 mg/dL (<0.1-1.0); TOTAL PROTEIN 8.1 g/dL (6.4-8.2)
--- NOTE | 2020-09-24 04:08 | NUR ---
AFTER MULTIPLE ATTEMPTS TO URINATE PT REMAINED UNABLE TO GO. STRAIGHT CATHED,
[2020-09-24 04:40] LABS: URINE BILIRUBIN NEGATIVE (Negative); URINE BLOOD 1+ (Negative); URINE CLARITY CLEAR; URINE COLOR YELLOW; URINE GLUCOSE-RANDOM TRACE (Negative); URINE KETONES NEGATIVE (Negative); URINE NITRITE-REFLEX NEGATIVE (Negative); URINE PROTEIN NEGATIVE (Negative); URINE SPECIFIC GRAVITY <= 1.005 (1.005-1.030); URINE UROBILINOGEN 0.2 E.U./dl (0.2-1.0)
[2020-09-24 04:46] LABS: URINE LEUKOCYTES-REFLEX 3+ (Negative)
[2020-09-24 05:31] LABS: CASTS None Seen /LPF (None Seen); SQUAMOUS NONE SEEN /LPF (0-3)
[2020-09-24 05:33] LABS: CRYSTALS None Seen /LPF (None Seen); URINE RBC 0-2 Rare /HPF (0-2); URINE WBC-REFLEX >25 Many /HPF (0-5)
--- NOTE | 2020-09-24 07:12 | NUR ---
ASSUMED PT CARE AT APPROX. 0500. PT ADMITTED FOR WEAKNESS, MULITPLE FALLS, AND NEUROPATHY. PT IS A/OX4. PT REPORTS HX OF AFIB. PT IS AFIB-AFLUTTER ON THE MONITOR. VSS. PT IS AFEBRILE WITH ORAL TEMP. 98.9. PT HAS UNCONTROLLED DMII. PT REPORTS THAT HE CHECKS HIS BLOOD GLUCOSE 4-5 TIMES PER DAY. PT HAS NEUROPATHY IN BL HAND AND FEET. PT PRESENTED WITH MULTIPLE ABRASIONS TO LOWER EXTREMITIES AND FEET. PT HAS PRESSURE ULCER TO RIGHT LATERAL FOOT. PT HAS PRESSURE ULCER WITH YELLOW PURULENT DRAINAGE NOTED UNDER BANDAID. TO RIGHT LATERAL LOWER EXTREMITY. PT HAS AN ABRASION TO THE LEFT KNEE D/T MULTIPLE FALLS AT HOME. PICTURES HAVE BEEN DOCUMENTED AND PLACED IN CHART. WOUND CARE HAS BEEN CONSULTED. PTS URINE WAS OBTAINED IN ED AND IS POSITIVE FOR UTI. AN ANTIBIOTIC WAS ORDERED BY ED MD. PATROL CAPTAIN NOTIFIED AND INSTRUCTED TO NOTIFY PHARMACY. THIS RN PHONED PHARMACY. PHARMACY STATED IT WILL BE AWHILE TO MAKE IT. DAY SHIFT HAS BEEN NOTIFIED THAT MEDICATION WILL BE AVAILABLE LATER TODAY.
--- NOTE | 2020-09-24 09:55 | EKG ---
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 : 1950 Requested By: Kadie Collins Order Number: [id number] MD: Matheus Mccray Measurements Intervals [place] Rate: 100 P: 62 TN: 175 QRS: 49 QRSD: 117 T: -13 QT: 360 QTc: 465 Interpretive Statements Sinus tachycardia Nonspecific intraventricular conduction delay Borderline repolarization abnormality Baseline wander in lead(s) I,II,III,aVR,aVL,aVF,V1,V2 Compared to ECG 01/22/2020 14:41:22 Sinus rhythm no longer present Electronically Signed On 09-24-2020 9:54:47 CDT by Matheus Mccray [email or web address] <ELECTRONICALLY SIGNED> By: Matheus Mccray MD, [facility] 09/24/20 0954 3 3 Matheus Mccray MD, [facility] /EPI
--- NOTE | 2020-09-24 18:43 | NUR ---
Pt A&O X4, pleasant. Up to BSC to void X1 assist 2-3 times today, but when getting back to bed pt states he was unable to pivot to get into bed. Assisted X2 max assist. States he is very weak. VSS. Will continue to monitor.
[2020-09-25] VITALS: BP 133/63
[2020-09-25 04:00] VITALS: BP 102/48
[2020-09-25 05:39] LABS: HEMATOCRIT 28.7 % (42.0-52.0); MCH 26.9 pg (26.0-34.0); MCHC 33.1 g/dL (28.0-37.0); MCV 81.2 fL (80.0-100.0); MPV 7.5 fl. (7.2-11.1); RBC 3.53 mil/uL (4.50-6.00); RDW-CV 14.1 % (10.5-14.5); WBC 13.4 thou/uL (4.0-11.0)
[2020-09-25 05:43] LABS: HEMOGLOBIN 9.5 gm/dL (14.0-18.0)
[2020-09-25 05:50] LABS: CALCIUM 8.4 mg/dL (8.5-10.1); CREATININE 1.2 mg/dL (0.6-1.3); POTASSIUM 4.1 mmol/L (3.5-5.1)
[2020-09-25 07:41] VITALS: BP 113/45
--- NOTE | 2020-09-25 11:54 | NUR ---
WOUND NURSE: PATIENT SEEN TO ADDRESS DIABETIC WOUNDS ON BILATERAL LEGS AND FEET. RIGHT PROXIMAL LOWER LEG (NEAR KNEE) MEASURES 3.0 X 2.3 CM. CONTAINS >75% BLACKENED UNSTABLE ESCHAR AND <25% RED AND YELLOW NONGRANULATING TISSUE. THERE IS A SMALL AMOUNT OF SEROUSANGUINOUS DRAINAGE. RIGHT 5TH METATARSAL WITH STABLE BLACKENED ESCHAR MEASURES 3X2 CM. THIN DRY BROWN TO RUST COLORED SCABS: RIGHT 2ND TOE 0.7 X 0.7 X 0.1 CM, NO DRAINAGE. LEFT ANTERIOR KNEE 3 SMALL LESIONS IN 2 X 1.5 CM AREA, 0.1 CM DEPTH. NO DRAINAGE. LEFT GREAT AND 2ND TOENAL OFF AND THIN SCAB HERE ALSO. PATIENT IS NEUROPATHIC AFTER DM FOR 25 YRS HE STATES. PATIENT PROVIDED CLINIC APPT AT [facility] WITH DR HARRIS HE REQUESTED. PROVIDED WITH SIZE E TUBIGRIPS TOES TO KNEE BLE SINGLE LAYER TO HELP WITH EDEMA -- PATIENT WITH 3+ PITTING PEDAL EDEMA. GIRTH MEASUREMENTS TO BLE FOLLOWS: R/L, FOREFOOT, ANKLE, CALF: 28/29; 25.5/25; 32/35. ABLE TO DOPPLER ALL PEDAL PULSES AND RIGHT DORSALIS PEDIS IS BIPHASIC AND OTHERS WERE MONOPHASIC. TOES ARE PALE PINK AND COOL WITH CAPILLARY REFILL 3 SEC ON RIGHT AND 4 SEC ON LEFT. INSTRUCTED ON MEASURES TO PROMOTE HEALING AND PREVENT COMPLICATIONS, I.E, NUTRITION, DM MANAGEMENT, PRESSURE RELIEF. FOLLOW UP TEACHING NEEDED.
[2020-09-25 12:00] VITALS: BP 107/61
--- NOTE | 2020-09-25 13:04 | NUR ---
Pt is A&O. Resides at home with . assists with ADLs and completes IADLS. Pt has a walker for mobility. No home o2. No hx of HH. Hx of Skilled at [place]. Hx of ARU. Per knows that he will likely need to go somewhere for rehab post this hospital stay, await therapy evals to determine SNF vs. ARU. Therapies to eval. CM to updated Pt's . Anticipate dc in a few days.
[2020-09-25 16:00] VITALS: BP 102/43
--- NOTE | 2020-09-25 19:55 | NUR ---
Pt's states she is concerned because pt had same symptoms in April and tested positive for COVID (decreased taste). Informed her that he tested negative for COVID upon admission, but she states she would like him to be tested again. She is scheduled to get 2nd COVID vaccine on Friday and concerned that if he has COVID she should not get the vaccine since that would be an exposure for her. VSS. Pt continues to be very weak and has difficulty standing and transferring. Will continue to monitor.
[2020-09-25 20:00] VITALS: BP 99/47
[2020-09-26] VITALS: BP 120/48
[2020-09-26 04:00] VITALS: BP 97/51
[2020-09-26 05:20] LABS: HEMATOCRIT 26.1 % (42.0-52.0); HEMOGLOBIN 8.6 gm/dL (14.0-18.0); MCH 26.5 pg (26.0-34.0); MCHC 33.1 g/dL (28.0-37.0); MCV 80.3 fL (80.0-100.0); MPV 7.3 fl. (7.2-11.1); RBC 3.25 mil/uL (4.50-6.00); RDW-CV 13.9 % (10.5-14.5); WBC 12.6 thou/uL (4.0-11.0)
[2020-09-26 05:34] LABS: CALCIUM 8.3 mg/dL (8.5-10.1); CREATININE 1.3 mg/dL (0.6-1.3)
[2020-09-26 08:00] VITALS: BP 126/61
[2020-09-26 12:05] VITALS: BP 116/47
--- NOTE | 2020-09-26 14:10 | NUR ---
Pt will need skilled at dc, ANNALISA left VM with Pt's to discuss SNF options, await call back. Therapies to continue to work with Pt. Anticipate dc in a few days.
[2020-09-26 15:55] VITALS: BP 107/50
--- NOTE | 2020-09-26 17:45 | NUR ---
ASSUMED PT CARE AT 729, PT AOX4, C/O HEADACHE TREATED W/ PRN TYLENOL W/ RELIEF. PT BEING TURNED Q2H AND GOT UP W/ 1-2 TO COMMODE MULTIPLE TIMES TODAY. PT CALLED AND UPDATED ON POC AND STATES PT'S SYMPTOMS ARE THE SAME WHEN HE HAD COVID SO PCR COVID SWAB ORDERED AND SENT TO LAB, PT NOW IN ISO FOR COVID PENDING. PT C/O FOOD HAVING A LOT OF CARBS, WENT OVER MENU AND ENCOURAGED PT TO PICK SOMETHING HE LIKES, I HELPED PT ORDER DINNER THAT HE WOULD BE ABLE TO EAT. PT HGB DROPPING, OCCULT BLOOD SENT TO LAB. GOAL IS TO FIND SOURCE OF WEAKNESS AND DROPPING HGB.
[2020-09-26 20:00] VITALS: BP 115/54
[2020-09-27] VITALS: BP 112/54
[2020-09-27 04:00] VITALS: BP 113/45
[2020-09-27 06:18] LABS: HEMATOCRIT 27.1 % (42.0-52.0); MCHC 33.3 g/dL (28.0-37.0); MCV 81.1 fL (80.0-100.0); MPV 7.5 fl. (7.2-11.1); RBC 3.34 mil/uL (4.50-6.00); RDW-CV 13.9 % (10.5-14.5); WBC 12.2 thou/uL (4.0-11.0)
[2020-09-27 06:25] LABS: CALCIUM 8.8 mg/dL (8.5-10.1); CREATININE 1.2 mg/dL (0.6-1.3); POTASSIUM 4.1 mmol/L (3.5-5.1)
--- NOTE | 2020-09-27 06:56 | NUR ---
PT SLEPT MOST OF SHIFT. ASSESSMENT DOCUMENTED. MEDS GIVEN PER E-MAR. IV PATENT. NO REPORTS OF PAIN. TYELNOL GIVEN PER E-MAR FOR FEVER. FALL PRECAUTIONS IN PLACE. WILL CONTINUE WITH PLAN OF CARE.
[2020-09-27 07:15] VITALS: BP 120/59
--- NOTE | 2020-09-27 13:05 | NUR ---
Pt now PUI per 's request. Pt will be here several more days. Plan SNF at [place].
[2020-09-27 13:14] VITALS: BP 99/53
--- NOTE | 2020-09-27 14:17 | NUR ---
WOUND NURSE: PATIENT SEEN WITH DR. STEVEN DPM WHO DEBRIDED THE RIGHT LOWER LEG -- PROXIMAL & LATERAL ASPECT. PHOTO, CONSENT, AND DEBRIDEMENT FORM COMPLETED. ON PAIN PATIENT WITH NEUROPATHY. WOUND BED NOW WITH <25% ESCHAR AND >75% RED, NONGRANULATING TISSUE. SMALL 1 TO 2 CM SANGUINOUS DRAINAGE AND SUBSEQUENTLY SUBSIDED. CLEANSED WITH PIPE SALINE AND GAUZE, THEN COVERED WITH AQUACEL AG UNDER BORDERED FOAM DRESSING. NONINVASIVE ARTERIAL STUDY DELAYED UNTIL RESULTS OF PCR AR KNOWN. THIS WAS SHARED WITH SHELLEY MARTINEZ AND DR. HARRIS. PATIENT REMINDED OF NUTRITIONAL NEEDS TO PROMOTE HEALING AND OF OFFLOADING WOUNDS AND PROTECTING FROM TRAUMA SINCE PATIENT IS NEUROPATHIC. PATIENT STATES HE UNDERSTANDS.
[2020-09-27 15:15] VITALS: BP 125/57
[2020-09-27 19:45] VITALS: BP 110/53
[2020-09-28] VITALS: BP 100/55
--- NOTE | 2020-09-28 01:41 | NUR ---
ASSUMED CARE OF PT AT 1900. PT IUS ALERT AND ORIENTED. VSS. PERRLA. NO COMPLAINTS OF PAIN. PT IS IN SINUS RYTHM ON THE TELEMETRY. PT IS RESTING COMFORTABLY IN BED. RESPIRATIONS ARE EVEN AND NONLABORED. WILL CONTINUE TO MONITOR PT.
[2020-09-28 04:00] VITALS: BP 116/60
[2020-09-28 05:24] LABS: HEMATOCRIT 27.5 % (42.0-52.0); HEMOGLOBIN 9.1 gm/dL (14.0-18.0); MCH 26.8 pg (26.0-34.0); MPV 6.6 fl. (7.2-11.1); RBC 3.39 mil/uL (4.50-6.00); RDW-CV 14.1 % (10.5-14.5); WBC 13.1 thou/uL (4.0-11.0)
[2020-09-28 05:33] LABS: CALCIUM 8.8 mg/dL (8.5-10.1); CREATININE 1.2 mg/dL (0.6-1.3); POTASSIUM 4.8 mmol/L (3.5-5.1)
[2020-09-28 08:00] VITALS: BP 122/55
[2020-09-28 11:25] VITALS: BP 130/56
--- NOTE | 2020-09-28 15:37 | NUR ---
Covid negative. Continue IVABX, follow blood cultures. Wound care and podiatry following. ID consulted. Afebrile. Goal is SNF at dc, possible transition to LTC post SNF. Following.
[2020-09-28 16:50] VITALS: BP 139/62
--- NOTE | 2020-09-28 18:45 | NUR ---
PT RESTING AT THIS TIME.PT DID HAVE TEMP OF 101.8,GIVEN TYLENOL AND ON REASSESMENT PT TEMP 99.0.SR ON MONITOR.ID DID TRY TO TELE VISIT PT AND WAS UNSUCCESSFUL R/T TECHNOLOGICAL ISSUES.PT HAS NOT HAD ANY ISSUES WITH DIARRHEA TODAY.LAST BM YESTERDAY. REPEAT BLOOD CULTURES ORDERED. NOTHING FURTHER.CLWR.WCTM
[2020-09-28 20:00] VITALS: BP 119/57
[2020-09-29] VITALS: BP 111/55
[2020-09-29 04:00] VITALS: BP 122/63
[2020-09-29 04:32] LABS: HEMOGLOBIN 8.8 gm/dL (14.0-18.0); MCH 26.5 pg (26.0-34.0); MCHC 32.5 g/dL (28.0-37.0); MCV 81.4 fL (80.0-100.0); RBC 3.31 mil/uL (4.50-6.00); RDW-CV 14.1 % (10.5-14.5); WBC 12.5 thou/uL (4.0-11.0)
[2020-09-29 04:47] LABS: CALCIUM 8.4 mg/dL (8.5-10.1); CREATININE 1.2 mg/dL (0.6-1.3); POTASSIUM 4.2 mmol/L (3.5-5.1)
--- NOTE | 2020-09-29 07:57 | NUR ---
ASSUMED CARE OF PATIENT AFTER REPORT AT 1930. PT A&OX4. VSS. PHYSICAL ASSESSMENT COMPLETED AND CHARTED. PT ON RA. PT TRACING SR ON TELE.PT UP WITH 1 ASSIST TO BSC. PT DENIES ANY PAIN.PT ABLE TO SLEEP ON BED.FALL PRECAUTIONS IN PLACE. CALL LIGHT WITHIN REACH.
[2020-09-29 08:00] VITALS: BP 124/52
[2020-09-29 11:29] VITALS: BP 130/78
--- NOTE | 2020-09-29 12:02 | NUR ---
Nutrition: Pt admitted with mulitple falls, weakness. Seen for pressure ulcer risk. Wounds on Rt LE. H/o DM, PN. Albumin 3, BG 92-219. CHO controlled diet. Wt is at usual of 193#. Pt is eating meals well. RD will order Jaden once a day for wounds. Consider mild risk.
--- NOTE | 2020-09-29 12:56 | NUR ---
Febrile. MRI foot today. Wound care and podiatry following. No weekend dc planned.
--- NOTE | 2020-09-29 17:29 | NUR ---
ASSUMED PT CARE AT 0730, PT AOX4, NO C/O PAIN OR SHORTNESS OF BREATH. PT BEING OFFERED TO BE TURNED Q2H BUT REFUSED FOR ME THROUGHOUT THE SHIFT. PT UP W/ 1 TO COMMODE, VERY WEAK ON FEET. PT CAME TO WORK W/ PT BUT MRI WAS HERE TO GET PT SO PT DIDN'T GET TO WORK W/ PT TODAY. PT C/O LOW APPETITE, I CALLED DIETARY FOR ALL MEALS TO ORDER FOOD PT LIKES. PT GOAL IS TO REMAIN FREE FROM SKIN BREAKDOWN.
[2020-09-30 00:37] VITALS: BP 125/62
[2020-09-30 05:06] VITALS: BP 124/59
[2020-09-30 08:00] VITALS: BP 131/69
[2020-09-30 16:00] VITALS: BP 152/65
[2020-09-30 23:43] VITALS: BP 112/54
[2020-10-01 04:23] VITALS: BP 104/53
[2020-10-01 04:49] LABS: HEMOGLOBIN 8.7 gm/dL (14.0-18.0); MCH 26.4 pg (26.0-34.0); MCHC 32.3 g/dL (28.0-37.0); MCV 81.5 fL (80.0-100.0); MPV 6.9 fl. (7.2-11.1); RBC 3.31 mil/uL (4.50-6.00); RDW-CV 13.8 % (10.5-14.5); WBC 12.4 thou/uL (4.0-11.0)
[2020-10-01 04:59] LABS: CALCIUM 8.1 mg/dL (8.5-10.1); CREATININE 1.6 mg/dL (0.6-1.3); POTASSIUM 4.6 mmol/L (3.5-5.1)
[2020-10-01 08:00] VITALS: BP 128/56
[2020-10-01 16:40] VITALS: BP 112/51
[2020-10-01 20:00] VITALS: BP 113/53
[2020-10-02 00:08] VITALS: BP 106/48
--- NOTE | 2020-10-02 01:39 | NUR ---
PT ALERT ORIENTED. REFUSING TURNS. MED/SURG STATUS. RUBEN D/I. ON RA.
[2020-10-02 08:00] VITALS: BP 110/57
[2020-10-02 09:15] LABS: CALCIUM 8.4 mg/dL (8.5-10.1); CREATININE 2.2 mg/dL (0.6-1.3); POTASSIUM 4.7 mmol/L (3.5-5.1)
--- NOTE | 2020-10-02 13:49 | NUR ---
Continue IVABX. Anticipate dc tomorrow. ARU consulted, await decision, if ARU unable to accept, plan SNF tomorrow.
--- NOTE | 2020-10-02 19:16 | NUR ---
PT HAD OVER 1000 IN BLADDER, TYLER PLACED, UA SENT AND DR ALY NOTIFIED. PT GOT UP TO CHAIR TODAY FOR A FEW HOURS W/ PT BUT HAD TO BE SALAS LIFTED BACK TO THE BED, UNABLE TO GET HIM UP W/ 2 NURSING STAFF.
[2020-10-02 20:00] VITALS: BP 124/58
[2020-10-02 21:08] LABS: URINE BILIRUBIN NEGATIVE (Negative); URINE BLOOD 2+ (Negative); URINE CLARITY CLOUDY; URINE COLOR YELLOW; URINE GLUCOSE-RANDOM NEGATIVE (Negative); URINE KETONES NEGATIVE (Negative); URINE NITRITE-REFLEX NEGATIVE (Negative); URINE PROTEIN TRACE (Negative); URINE UROBILINOGEN 0.2 E.U./dl (0.2-1.0)
[2020-10-02 21:11] LABS: URINE LEUKOCYTES-REFLEX 3+ (Negative)
[2020-10-02 21:14] LABS: CRYSTALS None Seen /LPF (None Seen); MUCUS None Seen strn/LPF (None Seen); SQUAMOUS NONE SEEN /LPF (0-3); URINE RBC 3-10 Few /HPF (0-2); URINE WBC-REFLEX >25 Many /HPF (0-5); WBC CLUMPS Few (None Seen)
[2020-10-02 21:16] LABS: BACTERIA-REFLEX None Seen /HPF (None Seen); CASTS None Seen /LPF (None Seen); YEAST-REFLEX Present (None Seen)
[2020-10-03 00:16] VITALS: BP 100/60
--- NOTE | 2020-10-03 02:07 | NUR ---
ASSUMED PT CARE AT APPROX. 1930. PT IS A/OX4. VSS. PT IS MED-SURG STATUS. FALL PRECAUTIONS IN PLACE FOR SAFETY. PT C/O CONSTIPATION. PT REQUEST TO GET OUT OF BED TO USE BSC. PT UP TO BSC WITH 2 PERSON ASSIST. PT IS VERY WEAK. AT APPROX. 0100 PT REQUEST TO USE BSC. RN OFFERED PT THE BED LUCERO D/T SAFETY CONCERNS. PT BECAME UPSET AND INITIALLY REFUSED TO USE BED LUCERO. RN TALKED WITH PATIENT AND PROVIDED EDUCATION CONCERNING HIS SAFETY. PT ACCEPTED TO USE BED LUCERO. RN OFFERED TO ADMINISTER PRN MEDICATION FOR CONSTIPATION. PT REFUSED. PT STATED, "I THINK I HAD A SMALL BOWEL MOVEMENT BUT I WANT TO KEEP TRYING ON MY OWN. I WILL WAIT FOR THE MEDICINE RIGHT NOW." MANJIT URIOSTEGUI PRESENT AT THIS TIME. FALL PRECAUTIONS IN PLACE FOR SAFETY. CALL LIGHT WITHIN REACH. PT CURRENTLY RESTING IN BED. WILL CONT. TO MONITOR.
[2020-10-03 07:40] VITALS: BP 100/47
[2020-10-03 09:39] LABS: ABSOLUTE BASOPHILS 0.1 thou/uL (0.0-0.2); ABSOLUTE EOSINOPHILS 0.3 thou/uL (0.0-0.7); ABSOLUTE LYMPHOCYTES 1.4 thou/uL (0.8-5.3); ABSOLUTE MONOCYTES 0.9 thou/uL (0.0-1.2); ABSOLUTE NEUTROPHILS 10.7 thou/uL (1.6-8.1); BASOPHILS 0.5 %; EOSINOPHILS 2.5 %; HEMATOCRIT 29.4 % (42.0-52.0); HEMOGLOBIN 9.4 gm/dL (14.0-18.0); LYMPHOCYTES 10.2 %; MCH 26.2 pg (26.0-34.0); MCV 81.9 fL (80.0-100.0); MONOCYTES 6.7 %; MPV 6.4 fl. (7.2-11.1); NUCLEATED RBCS 0 /100WBC; POLYS 80.1 %; RBC 3.59 mil/uL (4.50-6.00); RDW-CV 14.1 % (10.5-14.5); WBC 13.4 thou/uL (4.0-11.0)
[2020-10-03 09:45] LABS: PLATELET COUNT* 529 thou/uL (150-400)
[2020-10-03 09:53] LABS: CALCIUM 8.6 mg/dL (8.5-10.1); CREATININE 2.4 mg/dL (0.6-1.3); POTASSIUM 4.6 mmol/L (3.5-5.1)
--- NOTE | 2020-10-03 12:36 | NUR ---
Pt continues to have urinary retention. Anticipate dc in a few days. ARU following for a possible low endurance program vs. SNF.
--- NOTE | 2020-10-03 16:25 | NUR ---
WOUND NURSE: PATIENT RESCHEDULED FOR OUTPATIENT WOUND CNENTER TO SEE DR. HARRIS NEXT WEDNESDAY 10/11 AT 1300. PATIENT PROVIDED APPOINTMENT CARD AND DISCHARGE UPDATED ACCORDINGLY. PATIENT STATES HE UNDERSTANDS.
--- NOTE | 2020-10-03 17:33 | NUR ---
PT A&OX4 VSS. FALL PRECAUTIONS IN PLACE. PT REMAINS ON ROOM AIR. CONTACT PRECAUTIONS REMAIN IN PLACE. TYLER CATHETER DC'D ORDERED. PT IS ACCUCHECK, INSULIN ADMINISTERED DIRECTED. UPDATED BY PHONE THIS SHIFT. IV TO R HAND PATENT, DRESSING C/D/I. PT UP TO CHAIR THIS SHIFT WITH THERAPY. PT RESTS IN BED WITH CALL LIGHT IN REACH, WILL CONTINUE TO MONITOR
[2020-10-03 23:03] VITALS: BP 137/68
--- NOTE | 2020-10-04 04:26 | NUR ---
PATIENT ARRIVED TO UNIT BY BED AT APPROX 2200. ORIENTED TO ROOM AND ROUTINES. SHIFT ASSESSMENT COMPLETED. PATIENT HAS VOIDED X ONE HE STATES SINCE TYLER REMOVED LATE AFTERNOON YESTERDAY. INCONT X 1 LARGE AMOUNT DURING THE NIGHT. DRESSING BILAT LE'S CLEAN AND DRY. NEW IV SITE PLACED AND IVF'S RESUMED. TRANSFER WITH MOD ASSIST WITH GAIT BELT AND WALKER. VITAL SIGNS STABLE. ALL MEDS PROVIDED ORDERED. CONTINUE TO MONITOR.
[2020-10-04 05:05] LABS: HEMOGLOBIN 8.1 gm/dL (14.0-18.0); MCH 26.5 pg (26.0-34.0); MCHC 32.6 g/dL (28.0-37.0); MCV 81.3 fL (80.0-100.0); MPV 6.8 fl. (7.2-11.1); RBC 3.07 mil/uL (4.50-6.00); WBC 12.2 thou/uL (4.0-11.0)
[2020-10-04 05:12] LABS: CALCIUM 8.9 mg/dL (8.5-10.1); MAGNESIUM 2.2 mg/dL (1.8-2.4); POTASSIUM 4.7 mmol/L (3.5-5.1)
--- NOTE | 2020-10-04 07:07 | NUR ---
PATIENT LARGE INCONT VOID WITH POST-VOID SCAN 200ML.
[2020-10-04 08:00] VITALS: BP 122/59
[2020-10-04] MEDS ORDERED: GABAPENTIN 100100 MG PO (11:34)
[2020-10-04] MEDS ORDERED: FLUCONAZOLE 10100 MG PO (11:34)
[2020-10-04] MEDS ORDERED: LINEZOLID600 MG PO (11:34)
--- NOTE | 2020-10-04 12:39 | CON ---
[address] [address] CONSULTATION Name: ZENON SALVADOR Room: [address] ADM IN M.R.#: [id number] Admission: 09/24/20 Attend Phys: Yobani Anaya Discharge: Date of : 52 Report #: [id number] THIS REPORT FOR: cc: Alyse Rhodes Tammy RNP Hanon, Daniel R. DPM ~ DATE OF SERVICE: 09/25/2020 ADMISSION DIAGNOSIS: Severe generalized weakness with 3 recent falls HISTORY OF PRESENT ILLNESS: A 69-year-old male admitted through the Emergency Room with severe generalized weakness resulting in 3 falls yesterday. He states he also had a fever, and he feels significantly weak and unable to perform his normal ADLs. The patient is on parenteral ceftriaxone. FAMILY HISTORY: Reviewed and noncontributory. SOCIAL HISTORY: Denies tobacco, alcohol or drug use. PAST SURGICAL HISTORY: Right total knee replacement. ALLERGIES: No known allergies. MEDICATIONS: See admission history and physical. PAST MEDICAL HISTORY: Hypertension, type 2 diabetes mellitus, hyperlipidemia, atrial flutter, peripheral neuropathy, chronic back pain, osteoarthritis of right hip, acute tubular necrosis, congestive heart failure and urinary retention. LABORATORY DATA: WBC 13.4, RBC 3.53, hemoglobin 9.5, hematocrit 28.7 and platelets 224. BUN 24, creatinine 1.2, glucose 154 and albumin 3.0. PHYSICAL EXAMINATION: Temperature 97.9, pulse 65, respiration 17 and blood pressure 107/61. The patient has a black/brown eschar to the right fifth lateral MTP joint that measures roughly 3.0 x 2.5 cm. There is localized erythema to the area extending at the dorsal mid foot consistent with cellulitis. There is no underlying fluctuance or crepitation. There is no drainage or culturable material. Both lower extremities are very edematous, but the skin is warm to the touch with no pallor or cyanosis. I am unable to palpate dorsalis pedis or posterior tibial pulses, likely due to edema and medial calcific sclerosis. He has a right hallux valgus deformity with semirigid hammertoes of the second through fifth toes. The left foot and leg have no visible lesions. His feet are insensate as [place] [address] CONSULTATION Name: ZENON SALVADOR Room: [address] IN ..#: [id number] Admission: 09/24/20 Attend Phys: Yobani Anaya Discharge: Date of : 52 Report #: [id number] touch to any aspect of his plantar or dorsal feet bilaterally. Toenails are thick consistent with onychomycosis without paronychia. He can flex and extend his feet. His feet are very weak with roughly 3/5 power in flexion and extension. IMPRESSION: Eschar to the right lateral fifth MTP with localized cellulitis, type 2 diabetes mellitus and generalized weakness. PLAN: I do not recommend surgical debridement of the eschar at present as it is firmly adhered. Continue empiric antibiotics and offloading area. Continue below-knee compression with Tubigrip stockinette. I will order right foot radiographs to rule out underlying osteomyelitis, which I feel is very unlikely in this scenario given the clinical picture. I will review his arterial Doppler ultrasound results when available. <ELECTRONICALLY SIGNED> By: Miles Baker DPM 10/04/20 1239 1832 [id number] Baker DPM /nt
--- NOTE | 2020-10-04 12:39 | CON ---
[address] [address] CONSULTATION Name: ZENON SALVADOR Room: [address] ADM IN M.R.#: [id number] Admission: 09/24/20 Attend Phys: Yobani Anaya Discharge: Date of : 52 Report #: [id number] THIS REPORT FOR: cc: Alyse Rhodes Tammy RNP Hanon, Daniel R. DPM ~ DATE OF SERVICE: 10/01/2020 CHIEF COMPLAINT: Followup of ulceration to the right lateral leg and right lateral foot, complicated with type 2 diabetes mellitus. HISTORY OF PRESENT ILLNESS: Leg wound culture grew MRSA. He is on parenteral vancomycin and ceftriaxone. Appetite remains low, he has remained afebrile for roughly 48 hours. Right foot MRI is consistent with reactive bone marrow edema in the fifth metatarsal head and proximal phalanx with no T1 marrow infiltration to suggest osteomyelitis. Arterial Doppler showed symmetric and normal waveforms to both extremities with no definite high-grade stenosis. Arteries were noncompressible due to medial calcific sclerosis with falsely elevated ABIs. Recent foot radiographs were negative for osteomyelitis or subcutaneous emphysema. LABORATORY DATA: WBC 12.4, RBC 3.31, hemoglobin 8.7, hematocrit 27.0, platelets 410. BUN 29, creatinine 1.6. Vancomycin trough 19 on 09/29. PHYSICAL EXAMINATION: Temperature 98.7, pulse 67, respirations 16, blood pressure 128/56. Accu-Cheks 128 -- 234 -- 280 -- 275 -- 246 -- 291. There is decreased inflammation to both the right leg and foot ulcers. There is some loosening of the eschar to the leg ulcer with no underlying fluctuance or crepitation. I am able to lift up an edge of the eschar and there is some underlying yellowish fibronecrotic tissue. The eschar is yellow/brown and still firmly adhered other than the inferior margin, which I am able to slightly lift. Erythema surrounding the leg wound is fairly low grade, but remains greater than the foot erythema. The wound to the right lateral fifth MTP has a yellow fibronecrotic bed with minimal eschar remaining at the wound margins. There is no exposed bone, tendon or joint. The erythema is lower grade than the leg wound. There is no underlying fluctuance or crepitation. The foot is warm with faintly palpable dorsalis pedis and posterior tibial pulses. No paronychia to the toenails. He can flex and extend the right foot fairly well, although it is insensate due to advanced peripheral sensory neuropathy. No lesions noted to the right lower extremity or foot. IMPRESSION: Diabetic ulcerations, right lower extremity with resolving cellulitis, no signs of [place] [address] CONSULTATION Name: ZENON SALVADOR Room: [address] IN M.R.#: [id number] Admission: 09/24/20 Attend Phys: Yobani Anaya Discharge: Date of : 52 Report #: [id number] PLAN: We will order physical therapy for partial weightbearing with ____ improve his mobilization. Encourage glycemic control, nutrition and leg elevation. Continue daily wound care with Aquacel Ag and bordered foam and Tubigrip for lower extremity compression. I will obtain a surgical shoe form, recheck vancomycin trough. His creatinine has increased slightly, we will consider adjusting vancomycin dose. We will consider adjusting vancomycin dose and discontinuing ceftriaxone. I did debride the proximal leg wound with scissors and forceps to remove some of the loose eschar. This was an excisional debridement of subcutaneous tissue, all of which was devitalized. <ELECTRONICALLY SIGNED> By: Miles Baker DPM 10/04/20 1239 [id number] [id number] Baker DPM /nt
--- NOTE | 2020-10-04 12:39 | CON ---
[address] [address] CONSULTATION Name: ZENON SALVADOR Room: [address] ADM IN M.R.#: [id number] Admission: 09/24/20 Attend Phys: Yobani Anaya Discharge: Date of : 52 Report #: [id number] THIS REPORT FOR: cc: Alyse Rhodes Tammy RNP Hanon, Daniel R. DPM ~ DATE OF SERVICE: 09/29/2020 CHIEF COMPLAINT: Followup of cellulitis to the right foot and proximal leg with concomitant ulceration and type 2 diabetes mellitus. HISTORY OF PRESENT ILLNESS: He feels well with slightly improved appetite. He has been afebrile overnight, denies foot or leg pain. He is on parenteral vancomycin and ceftriaxone with good tolerance. Foot radiographs were negative for osteomyelitis and there is no subcutaneous emphysema. The wound culture from the right proximal leg is pending, with few gram-positive cocci on Gram stain. Yesterday's blood cultures are pending. Admission urine culture was negative. Arterial Doppler ultrasound of extremities showed that the waveforms had normal morphology and symmetry with no signs of stenosis. DANIELLA was 0.92 on the right and 0.77 on the left. LABORATORY AND DIAGNOSTIC DATA: WBC 12.5, RBC 3.31, hemoglobin 8.8, hematocrit 27.0, platelets 336. BUN 23, creatinine 1.2, glucose 92. PHYSICAL EXAMINATION: VITAL SIGNS: Temperature 98.6, pulse 69, respirations 21, blood pressure 122/63. EXTREMITIES: There is decreased erythema and edema to the right foot periwound. The eschar is dry, firm and black with slight loosening along the margins since hospital admission. There is no underlying fluctuance or crepitation. There is no drainage/bleeding or culturable material from the foot eschar. The area is nontender to the touch. The wound at the proximal lateral leg below the knee is more erythematous, roughly the same. There is some fibronecrotic tissue over pale granular wound bed with localized circumferential erythema, which has slightly receded since hospital admission. The area is nontender with no underlying fluctuance or crepitation. There is slight soupy drainage on his bandage. The foot and leg are warm with no pallor/cyanosis or signs of acute vascular embarrassment. There is no popliteal adenopathy or calf tenderness. Negative Homans and Cha sign to both lower extremities. No open lesions noted to the left lower extremity. He can flex and extend both feet, they are insensate to light touch with lack of epicritic sensation to all aspects of his plantar feet. IMPRESSION: Diabetic foot and leg ulceration with [place] [address] CONSULTATION Name: MADELEINEZENON Room: [address] IN M.R.#: [id number] Admission: 09/24/20 Attend Phys: Yobani Anaya Discharge: Date of : 52 Report #: [id number] PLAN: I performed an excisional ulcer debridement with scissors and forceps to excise the complete eschar off the distal lateral right foot wound. Scant bleeding was stopped with pressure. The wound was cleansed and redressed with Aquacel Ag and bordered foam. There is no exposed bone, tendon or joint to the wound bed and no purulence or signs of deep infection present. I did not debride the proximal leg wound, but I did clean it and redress with Aquacel Ag and a bordered foam. The egthi-bhk-croi Tubigrip stockinette was reapplied for compression. I ordered an MRI of the right foot without contrast to evaluate for osteomyelitis, although not favoring this based on the clinical and x-ray findings. Continue parenteral antibiotics and daily wound care. Maximize glycemic control and nutrition. <ELECTRONICALLY SIGNED> By: Miles Baker DPM 10/04/20 1239 0729 [id number] Baker DPM /nt
--- NOTE | 2020-10-04 12:39 | CON ---
[address] [address] CONSULTATION Name: ZENON SALVADOR Room: [address] ADM IN M.R.#: [id number] Admission: 09/24/20 Attend Phys: Yobani Anaya Discharge: Date of : 52 Report #: [id number] THIS REPORT FOR: cc: Alyse Rhodes Tammy RNP Hanon, Daniel R. DPM ~ DATE OF SERVICE: 09/27/2020 CHIEF COMPLAINT: Followup of ulceration to the right lateral fifth MTP joint and proximal aspect of the lateral leg. He is on parenteral ceftriaxone with good tolerance. 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 Awaiting COVID PCR test, the patient is on contact precautions. LABORATORY DATA: WBC 12.2, RBC 3.34, hemoglobin 9.0, hematocrit 27.1, platelets 268. BUN 30, creatinine 1.2, glucose 105. PHYSICAL EXAMINATION: Temperature 98.8, pulse 67, respirations 20, blood pressure 120/59. Wound to the right lateral fifth MTP has a brown eschar that is firmly adhered with low-grade localized erythema consistent with cellulitis. The eschar measures roughly 3.0 x 3.0 cm. There is no underlying fluctuance or crepitation. The area is nontender due to peripheral sensory neuropathy. He also has an ulceration to the proximal aspect of the right lateral leg. It is also about 3.0 x 3.0 cm. The distal aspect of the eschar slightly loose with some overlying yellowish fibronecrotic tissue. There is no fluctuance/crepitation or signs of abscess to this area. His legs are edematous, no pallor or cyanosis. Awaiting arterial Doppler, pending his PCR COVID results. IMPRESSION: Right leg and foot ulcerations with cellulitis, type 2 diabetes mellitus, peripheral artery disease. PLAN: I performed an excisional wound debridement to the proximal leg lesion with a sterile scalpel and forceps to remove some of the eschar and adherent subcutaneous tissue. I took an aerobic swab culture of the underlying wound. I did not debride the lateral foot wound as the eschar was firmly adhered and intact. We will order a foot radiographs and await arterial Doppler results. I recommended adding additional antibiotics for gram positive coverage. <ELECTRONICALLY SIGNED> By: Miles Baker DPM 10/04/20 1239 0714 [id number] Baker DPM /nt
--- NOTE | 2020-10-04 13:19 | NUR ---
Pt medically stable to dc per Dr to [facility] requesting updated labs be drawn in the AM and dc to [facility] tomorrow. Updated
[2020-10-04 17:07] VITALS: BP 148/73
--- NOTE | 2020-10-04 18:19 | NUR ---
REPORT CALLED TO [facility]. NOTIFIED
--- NOTE | 2020-10-04 18:21 | NUR ---
PT RESTING IN BED THROUGHOUT SHIFT. REPOSITIONED FREQUENTLY. WOUND CARE TO BLE. PT TOLERATING PO WELL. PLAN FOR REHAB THIS EVENING
--- NOTE | 2020-10-06 15:41 | NUR ---
WOUND NURSE: PATIENT SEEN FOR WOUND ASSESSMENT PERTAINING TO THE FOLLOWING WOUNDS. PROXIMAL RLE ON LATERAL ASPECT NEAR KNEE. MEASURES 3.0 X 2.0. CONTAINS 100% YELLOW SLOUGH ADN BLACKENED ESCHAR. MODERATE AMOUNT OF SEROUS DRAINAGE. NO PERIWOUND REDNESS, WARMTH, OR INDURATION. RIGHT FOOT 5TH METATARSAL MEASURES 2.0 X 1.8 CM CONTAINS ALMOST 100% YELLOW SLOUGH IN THE WOUND BED. PERIWOUND WITH LOCALIZED REDNESS, BUT NO WARMTH OR INDURATION. BLE CLEANSED WITH SOAP AND WATER, RINSED, THEN PATTED DRY. APPLIED AQUACEL AG UNDER BORDERED FOAM DRESSING. LEFT HEEL WITH BLACKED DRY AND STABLE ESCHAR. NO DRAINAGE, MEASURES 2.0 X 3.0 CM. NO PERIWOUND REDNESS, WARMTH, OR INDURATION. RIGHT HEEL WITH PURPLISH RED NONBLANCHEABLE DISCOLORATON MEASURING 1.0 X 1.0 CM; SKIN IS INTACT. LEFT HEEL WOUND PAINTED WITH BETADINE SWABS. PATIENT INSTRUCTED ON IMPORTANCE OF OFFLOADING WOUNDS TO PROMOTE HEALING.
--- NOTE | 2020-10-11 12:35 | CON ---
[address] [address] CONSULTATION Name: ZENON SALVADOR Room: [address] IN M.R.#: [id number] Admission: 09/24/20 Attend Phys: Yobani Anaya Discharge: 10/04/20 Date of : 52 Report #: [id number] THIS REPORT FOR: cc: Alyse Rhodes Tammy RNP Khosla, Parveen K. MD ~ DATE OF SERVICE: 09/25/2020 HISTORY OF PRESENT ILLNESS: This is a 69-year-old male patient, who was evaluated by me for a complicated history. I reviewed the patient's record, I Interviewed the patient and I had talked to the day nurse. This patient gives somewhat of a different history to me. He says that he started having weakness in all 4 extremities, which are bilaterally symmetrical and distal about 3 years ago. First, he had numbness, then he had weakness. It became worse in last 2-3 weeks. At the same time, he was found to have bladder infections and he is being treated for UTI now. Weakness has become worse, but is not fluctuating that much. REVIEW OF SYSTEMS: Positive for UTI. He has a longstanding diabetes. He has a history of hypertension. Record indicates he has A-flutter. He said he leaks urine at night and it has become worse with urinary tract infection. He has a history of chronic back pain and diarrhea. He did have some urinary retention; that was his relevant 14-point review of system. It looks like at one time, he was on Eliquis. Eliquis was stopped; I am not sure why. Rest of the 14-point review of system was noncontributory. PAST MEDICAL HISTORY: Diabetes. FAMILY HISTORY: Negative for early age stroke. SOCIAL HISTORY: He does not drink alcohol. PHYSICAL EXAMINATION: Indicate he is alert. He is responsive. His speech, concentration, fund of knowledge was at his baseline. Cranial nerve examination 2-12 does not appear to be showing any definite abnormality. His neuromuscular examination is positive for profound weakness and distal musculature. He barely can dorsiflex or plantarflex of both his feet. He does have antigravity movements proximally. Similarly, he is weak in his both hands. He has no position sense in the lower extremities. He has no pinprick in the lower extremities. It starts feeling around the knee on both sides. Similarly, sensations are markedly diminished in both hands, but it starts coming up if we go towards the elbow. This is a bilaterally symmetrical thing. His fundus could not be visualized. He has no meningeal sign. His hearing and vision looks adequate. Cardiac examination is unremarkable[place] [address] CONSULTATION Name: ZENON SALVADOR AZEEM Room: [address] IN M.R.#: [id number] Admission: 09/24/20 Attend Phys: Yobani Anaya Discharge: 10/04/20 Date of : 52 Report #: [id number] was noticed. Blood pressure is 102/43, respirations 19, pulse is 83, temperature is 98.3. I cannot tell about the pulses because he has bandages there. He may have some edema, but no jaundice. IMPRESSION: 1. This patient has severe peripheral neuropathy. That is most likely the cause of his weakness. 2. Because of his urinary tract infection, a concern was that he may be having some spine pathology, like epidural abscess because everybody has noticed that he was profoundly weak in the lower extremities, both Physical Therapy as well as the nurses before I saw him. That does not show any epidural abscess. He has a chronic problem, which will explain his back pain. RECOMMENDATIONS: 1. He needs EMG if he needs all the workup for his neuropathy. 2. We need to see how much better he becomes after treating the bladder infection because I think that is what appeared to have aggravated the patient's present situation with neuropathy. Thank you very much for this referral. <ELECTRONICALLY SIGNED> By: Adán Wheeler MD 10/11/20 1235 [id number] Wheeler MD /nt
== END 2020-10-04 18:56 | DRG 853 ==
LOC: M.ERS 01:10 → M.TBA-ER 04:21 → M.2W 04:21 → M.ORTHSURG 10-03 22:05
PROVIDERS: Emergency Medicine; Family Medicine; Internal Medicine; ADMIT Internal Medicine; ATTEND Internal Medicine
PROC: 0JBN0ZZ Excision of Right Lower Leg Subcutaneous Tissue and Fascia, Open Approach (ICD-10-PCS; principal; 2020-09-28)
DX: A41.9 Sepsis, unspecified organism (principal); N17.0 Acute kidney failure with tubular necrosis; E87.1 Hypo-osmolality and hyponatremia; I48.92 Unspecified atrial flutter; D62 Acute posthemorrhagic anemia; L03.115 Cellulitis of right lower limb; N39.0 Urinary tract infection, site not specified; E78.5 Hyperlipidemia, unspecified; E11.42 Type 2 diabetes mellitus with diabetic polyneuropathy; Y83.8 Other surgical procedures as the cause of abnormal reaction of the patient, or of later complication, without mention of misadventure at the time of the procedure; I11.0 Hypertensive heart disease with heart failure; E11.621 Type 2 diabetes mellitus with foot ulcer; L97.519 Non-pressure chronic ulcer of other part of right foot with unspecified severity; Y82.8 Other medical devices associated with adverse incidents; I50.9 Heart failure, unspecified; G89.29 Other chronic pain; M54.9 Dorsalgia, unspecified; I48.0 Paroxysmal atrial fibrillation; M48.02 Spinal stenosis, cervical region; Z20.822 Contact with and (suspected) exposure to COVID-19; Z79.4 Long term (current) use of insulin; Z79.899 Other long term (current) drug therapy; Y92.89 Other specified places as the place of occurrence of the external cause

== ENCOUNTER 2020-10-04 15:57 | Inpatient (IN) | payer MEDICARE, OTHER ==
[~2020-10-04] VITALS: Ht 175.3 cm; Wt 83.5 kg
[~2020-10-04 15:57] MED LIST changes: +FLUCONAZOLE 10100 MG PO; +GABAPENTIN 100100 MG PO; +LINEZOLID600 MG PO
[2020-10-04 20:00] VITALS: BP 134/65
[2020-10-05 04:14] LABS: HEMATOCRIT 24.7 % (42.0-52.0); MCH 26.1 pg (26.0-34.0); MCHC 32.2 g/dL (28.0-37.0); MCV 81.1 fL (80.0-100.0); MPV 6.3 fl. (7.2-11.1); RBC 3.05 mil/uL (4.50-6.00); WBC 12.2 thou/uL (4.0-11.0)
[2020-10-05 04:21] LABS: CALCIUM 8.8 mg/dL (8.5-10.1); CREATININE 1.9 mg/dL (0.6-1.3)
[2020-10-05 08:07] VITALS: BP 145/69
--- NOTE | 2020-10-05 11:25 | NUR ---
Nutrition: Pt admitted to rehab with debility, sepsis. H/o DM, PN, BLE wounds. CHO controlled diet, tolerating fine. Fever, ABX. C. diff pending. Meds noted. BG 188, albumin 3, WBC 12.2. Wt stable 198#. Pt was on Jaden on other unit - RD reordered Jaden to aid in wound healing. Encourage good meal intake and hydration. Mild risk.
--- NOTE | 2020-10-05 17:57 | NUR ---
PT ALERT AND ORIENTED X 4. PT GIVEN INSULIN WITH MEALS. WOUND DRESSINGS REMAIN IN PLACE. WOUND RN DID NOT COME SEE PT TO HELP WITH PICS. UPON ADMISSION THE WOUND PICS WERE NOT TAKEN. PT RESTING IN BED AT THIS TIME. PT SLEPT THIS AFTERNOON. PT EATING DINNER. MULTIPLE LOOSE STOOLS THIS SHIFT. CDIFF SAMPLE ORDERED BUT NO BM SINCE ORDER OBTAINED. CALL LIGHT WITHIN REACH. WILL CONTINUE TO MONITOR.
[2020-10-05 20:00] VITALS: BP 143/61
--- NOTE | 2020-10-06 06:24 | NUR ---
ASSUMED PT CARE AT 1930. ASSESSMENT COMPLETED CHARTED. ABLE TO MAKE NEEDS KNOWN. NO C/O PAIN OR DISCOMFORT. RESTING IN BED COMFORTABLY ALL NIGHT. Q2 TURNS COMPLETED CHARTED. INCONTINENT OF URINE ALL NIGHT. WILL CONTINUE TO MONITOR.
[2020-10-06 07:51] LABS: HEMATOCRIT 27.6 % (42.0-52.0); HEMOGLOBIN 8.9 gm/dL (14.0-18.0); MCH 26.3 pg (26.0-34.0); MCHC 32.3 g/dL (28.0-37.0); MCV 81.4 fL (80.0-100.0); MPV 6.3 fl. (7.2-11.1); RBC 3.39 mil/uL (4.50-6.00); WBC 12.2 thou/uL (4.0-11.0)
[2020-10-06 08:07] LABS: CALCIUM 9.3 mg/dL (8.5-10.1); CREATININE 1.8 mg/dL (0.6-1.3); POTASSIUM 5.1 mmol/L (3.5-5.1)
--- NOTE | 2020-10-06 08:31 | NUR ---
INITIAL ASSESSMENT: PATIENT ADMITTED TO THE [facility] ON 10/04/20 WITH A DIAGNOSIS OF DEBILITY, AND SEPSIS. PATIENT ALERT AND ORIENTED. PT RESIDES AT HOME WITH SPOUSE. PT INFORMS THAT PRIOR TO ADMIT HIS SPOUSE ASSISTED HIM WITH ADL'S. PATIENT USES A WALKER AT HOME FOR MOBILITY. PT ALSO OWNS A BATH BENCH. PT HAS 0 HX OF HH. PT HAS PAST HX OF SNF AT [facility]. PT HAS PAST HX OF INPT ARU. CM ORIENTED PT AND HIS SPOUSE TO IN ARU AND PROCESSES, RESIDENTS RIGHTS INFO, TEAM CONFRENCE, AND TO THE ROLE OF CM. CM WILL REMAIN AVAILABLE TO ASSIST AND FOLLOW NEEDED.
[2020-10-06 08:43] VITALS: BP 157/71
--- NOTE | 2020-10-06 15:57 | NUR ---
WOUND NURSE: PATIENT SEEN FOR WOUND ASSESSMENT PERTAINING TO THE FOLLOWING WOUNDS. PROXIMAL RLE ON LATERAL ASPECT NEAR KNEE. MEASURES 3.0 X 2.0. CONTAINS 100% YELLOW SLOUGH AND BLACKENED ESCHAR. MODERATE3 AMOUNT OF SEROUS DRAINAGE. NO PERIWOUND REDNESS, WARMTH, OR INDURATION. RIGHT FOOT 5TH METATARSAL MEASURES 2.0 X 1.8 CM. CONTAINS ALMOST 100% YELLOW SLOUGH IN THE WOUND BED. PERIWOUND WITH LOCALIZED REDNESS, BUT NO WARMTH OR INDURATION. BLE CLEANSED WITH SOAP AND WATER, RINSED, THEN PATTED DERY. APPLIED AQUACEL AG UNDER BORDERED FOAM DRESSING. LEFT HEEL WITH BLACKENED DRY AND STABLE ESCHAR. NO DRAINAGE, MEASURES 2.0O X 3.0 CM. NO PERIWOUND REDNESS, WARMTH, OR INDURATION. RIGHT HEEL WITH PURPLISH RED, NONBLANCHEABLE DISCOLORATION MEASURING 1.0 X 1.0 CM; SKIN IS INTACT. LEFT HEEL WOUND PAINTED WITH BETADINE SWABS. PATIENT INSTRUCTED ON IMPORTANCE OF OFFLOADING WOUNDS TO PROMOTE HEALING. STATE HE UNDERSTANDS.
--- NOTE | 2020-10-06 21:00 | NUR ---
RESTING QUIETLY IN BED AND WATCHING TV. DENIES DISCOMFORT. INCONTINENT OF URINE. ABHISHEK CARE GIVEN. ANTI FUNGAL CREAM APPLIED TO REDNESS IN GROIN AREA. MOISTURE BARRIER CREAM APPLIED TO COCCYX. PATIENT CONSUMED A CONTAINER OF SUGAR FREE CHOCOLATE PUDDING. CALL LIGHT WITHIN REACH. PATIENT HAS PREVALON BOOTS ON BILATERALLY. PATIENT WANTS TO STAY IN SEMI-FOWLERS TO WATCH TV. STRESSED IMPORTANCE OF STAYING OFF HIS BOTTOM DUE TO POTENTIAL FOR SKIN BREAKDOWN. PATIENT STATES HE SCOOTS AROUND SOME.
--- NOTE | 2020-10-07 04:44 | NUR ---
INCONTINENT OF URINE X 4 DURING THE NIGHT. ABHISHEK CARE GIVEN. ASSISTED WITH REPOSITIONING SIDE TO SIDE THROUGHOUT THE NIGHT. HOURLY ROUNDING IN PROGRESS.
[2020-10-07 08:30] VITALS: BP 140/66
--- NOTE | 2020-10-07 17:57 | NUR ---
ALERT AND ORIENTED X4. UP WITH 1 ASSIST GAIT BELT AND WALKER. INCONTINENT OF URINE X2. URINE ORANGE IN COLOR DUE TO MEDICATION. PATIENT STATED IT HURT WHEN HE VOIDED. PATIENT STATED HE DID NOT FEEL LIKE HE HAD TO VOID BUT BLADDER SCAN SHOWED GREATER THAN 894ML. PATIENT TRIED TO VOID AND VOIDED 250ML. PATIENT'S BLADDER RESCANNED AND OT SHOWED GREATER THAN 765ML IN BLADDER. NOTIFIED AND NEW ORDERS NOTED. STRAIGHT CATH WITH RETURN OF 1100ML OF ORANGE URINE. LEFT LEG NOTED TO BE LARGER THAN RIGHT BUT DOPPLER RETURNED NEGATIVE FOR CLOT. DRESSING DRY AND INTACT OVER WOUNDS ON RIGHT LEEG AND FOOT. HEELMEDIX BOOTS ON BILATERALLY WHILE IN BED. USES CALL LIGHT FOR ASSIST. FALL PRECAUTIONS IN PLACE BED ALARM AND CHAIR ALARM USED.
[2020-10-07 19:00] VITALS: BP 136/58
--- NOTE | 2020-10-07 21:00 | NUR ---
RESTING QUIETLY IN BED. DENIES DISCOMFORT. HAS HEELMEDIX BOOTS ON BILATERALLY. REDNESS NOTED IN GROIN AREA AND ON SCROTUM. ABHISHEK CARE GIVEN AND ANTIFUNGAL CREAM APPLIED. SNACK PROVIDED. CALL LIGHT WITHIN REACH,
--- NOTE | 2020-10-08 05:36 | NUR ---
RESTED QUIETLY. ASSISTED WITH REPOSITIONING. STRAIGHT CATH DONE AT 2300 AND 775 ML OF ORANGE URINE OBTAINED. PATIENT ON SCHEDULED PYRIDIUM. PATIENT UNABLE TO VOID. HOURLY ROUNDING IN PROGRESS.
[2020-10-08 08:00] VITALS: BP 141/64
--- NOTE | 2020-10-08 17:01 | NUR ---
ALERT AND ORIENTED X4. UP WITH 2 ASSIST, GAIT BELT AND WALKER. DENIES NEED FOR PAIN MEDICATION. HAS URINARY RETENTION AND TYLER CATHETER PLACED WITHOUT DIFFICULTY. URINE ORANGE IN COLOR DUE TO MEDICATION. HAS LOOSE STOOL SENT FOR CULTURE. DRESSINGS CHANGED OVER WOUNDS ON RIGHT LEG. USING HEELMEDIX ON BILATERAL HEELS. REPOSITIONED/ TURNED AT LEAST EVERY 2 HOURS. USES CALL LIGHT FOR ASSIST. FALL PRECAUTIONS IN PALCE. BED ALARM AND CHAIR ALARM USED.
[2020-10-08 20:00] VITALS: BP 124/60
--- NOTE | 2020-10-09 06:50 | NUR ---
ASSUMED PT CARE AT 1930. ASSESSMENT COMPLETED CHARTED. NO C/O PAIN OR DISCOMFORT. ABLE TO MAKE NEEDS KNOW. CALLED OUT A COUPLE TIMES R/T INCONTINENT OF BOWEL. TYLER DRAINING ORANGE TINTED URINE. PT RESTING IN BED MOST OF THE NIGHT. WILL CONTINUE TO MONITOR.
[2020-10-09 07:45] VITALS: BP 159/71
--- NOTE | 2020-10-09 16:27 | NUR ---
ALERT AND ORIENTED X4. UP WITH 1-2 ASSIST, GAIT BELT AND WALKER. INCONTINENT OF LOOSE BOWELS X1 TODAY. HAS TYLER CATHETER PATENT WITH CLEAR ORANGE URINE. DRESSINGS DRY AND INTACT OVER WOUNDS ON LOWER EXTREMITIES. WEARS HEELMEDIX BOOTS WHEN IN BED. NO C/O PAIN. USES CALL LIGHT FOR ASSIST. FALL PRECAUTIONS IN PLACE. BED ALARM AND CHAIR ALARMS USED.
--- NOTE | 2020-10-09 16:32 | NUR ---
CM CHECK-IN: CM SPOKE TO THE PT AND HIS SPOUSE TO DISCUSS ANY QUESTIONS OR CONCERNS THAT THEY MAY HAVE FOR THIS WEEKS TEAM CONFRENCE MEETING. PT AND SPOUSE HAVE NO QUESTIONS OR CONCERN AT THIS TIME. CM WILL REMAIN AVAIABLE TO ASSIST AND FOLLOW NEEDED.
[2020-10-09 19:00] VITALS: BP 124/55
--- NOTE | 2020-10-10 06:30 | NUR ---
ASSUMED PT CARE AT 1930. ASSESSMENT COMPLETED CHARTED. ABLE TO MAKE NEEDS KNOWN. PT CALLED OUT A COUPLE TIMES STATING HE HAD AN ACCIDENT IN THE BED. TYLER DRAINING CLEAR ORANGE URINE. NO C/O PAIN OR DISCOMFORT AND REFUSES PYRIDIUM. WOKE UP THIS MORNING SWEATING, BLOOD SUGAR WNL. WILL CONTINUE TO MONITOR.
[2020-10-10 07:50] VITALS: BP 148/68
--- NOTE | 2020-10-10 10:14 | NUR ---
WOUND NURSE: PATIENT SEEN FOR FOLLOW UP ASSESSMENT PERTAINING TO MULTIPLE DIABETIC ULCERS. LEFT HEEL WOUND MEASURES 2.0 X 2.5 CM CONTAINS BLACKENED, STABLE, AND INTACT ESCHAR. BETADINE SWAB APPLIED, HEELMEDIX BOOT REAPPLED. RIGHT HEEL MEASURES 0.5 X 0.5 CM AND SKIN IS INTACT ADN PURPLISH DISCOLORATION SIGNIFICANTLY IMPROVED FROM LAST ASSESSMENT. RIGHT 5TH METATARSAL WOUND PRESENTS SHALLOW EROSION CONTAINING A YELLOW ESCHAR. THERE IS NO ACTIVE DRANAGE FROM THE WOUND AND MINIMAL PERIWOUND REDNESS. MEASURES 2.3 X 1.8 CM. RIGHT LE PROXIMAL ASPECT MEASURES 2.3 X 1.5 CM AND CONTAINS A LOOSE BLACKENED ESCHAR. THERE IS A SMALL AMOUNT OF SEROUS DRAINAGE NOTED. I SPOKE WITH DR. STEVEN DPM AND HE PLANS TO FOLLOW UP WITH PATIENT TOMORROW. PATIENT REINSTRUCTED ON MEASURES TO PROMOTE HEALING AND PATIENT STATES HE UNDERSTANDS.
--- NOTE | 2020-10-10 16:42 | NUR ---
PATIENT COMPLETED THERAPIES THIS SHIFT ORDERED. UP WITH ASSISTANCE, GAIT BELT AND WALKER. TYLER REMAINS DRAINING ORANGE COLORED URINE. BM NOTED THIS SHIFT VIA BSC. INSULIN GIVEN WITH MEALS ORDERED. UP TO RECLINER/WHEELCHAIR FOR MEALS. NO COMPLAINTS OF PAIN. DRESSINGS TO WOUNDS CHANGED THIS AM PER WOUND CARE, REDRESSED AFTER SHOWER BY THIS NURSE. PODIATRY TO SEE PATIENT TOMORROW REGARDING WOUNDS.
[2020-10-10 20:00] VITALS: BP 135/65
[2020-10-11 05:36] LABS: HEMATOCRIT 25.3 % (42.0-52.0); HEMOGLOBIN 8.2 gm/dL (14.0-18.0); MCH 26.1 pg (26.0-34.0); MCHC 32.3 g/dL (28.0-37.0); MCV 80.8 fL (80.0-100.0); MPV 5.8 fl. (7.2-11.1); RBC 3.13 mil/uL (4.50-6.00); RDW-CV 14.1 % (10.5-14.5); WBC 10.3 thou/uL (4.0-11.0)
[2020-10-11 05:44] LABS: CALCIUM 8.8 mg/dL (8.5-10.1); CREATININE 1.7 mg/dL (0.6-1.3); POTASSIUM 4.6 mmol/L (3.5-5.1)
[2020-10-11 07:50] VITALS: BP 145/67
--- NOTE | 2020-10-11 16:29 | NUR ---
PATIENT COMPLETED THERAPIES THIS SHIFT ORDERED. UP WITH ASSISTANCE, GAIT BELT AND WALKER. TYLER DRAINING YELLOW URINE. BM NOTED X 2 THIS SHIFT. C/O NECK PAIN THIS AM, PRN TYLENOL GIVEN WITH NO RELIEF. DR. PEOPLES NOTIFIED AND ORDERS FOR DAILY ALEVE. PATIENT CAME BACK FROM THERAPY AND STATED HE DID NOT HAVE ANYMORE PAIN. INSULIN GIVEN WITH MEALS ORDERED. TEAM MEETING TODAY, RETEAM.
[2020-10-11 19:00] VITALS: BP 151/67
--- NOTE | 2020-10-12 05:01 | NUR ---
ASSUMED PT CARE AT 1930. PT ALERT AND ORIENTED X4, POLITE AND COOPERATIVE WITH CARES. DENIES PAIN. TYLER TO DEPENDENT DRAINAGE DRAINING DARK YELLOW URINE. PT INCONTINENT OF STOOL X1, PER PT IT HAPPENED WHILE HE WAS ASLEEP. PERICARE PROVIDED. SLIDING SCALE INSULIN AT HS PER MAR, SNACK PROVIDED. DRESSINGS TO WOUNDS INTACT, PT SLEPT IN BILATERAL PRAFO BOOTS. TURNS SELF IN BED. DR. CARMEN TO SEE PATIENT HAVING BEEN CONTACTED BY WOUND NURSE. USES CALL LIGHT APPROPRIATELY. CALL LIGHT IN REACH, BED ALARM ON FOR SAFETY. HOURLY ROUNDING IN PROGRESS, WILL CONTINUE TO MONITOR.
[2020-10-12 08:00] VITALS: BP 156/70
--- NOTE | 2020-10-12 18:46 | NUR ---
PT UP WITH THERAPY THIS AM. VSS AFEBRILE. PT WENT DOWN TO THERAPY AND WORKED REALLY HARD. PT IS MOVING A LOT BETTER. PT EATING WELL. WILL CONTINUE TO MONITOR PLAN OF CARE.
[2020-10-12 20:05] VITALS: BP 121/54
--- NOTE | 2020-10-13 05:13 | NUR ---
ASSUMED PT CARE AT 1930. PT ALERT AND ORIENTED X4, POLITE AND COOPERATIVE WITH CARES. PT SITTING UP IN RECLINER AT SHIFT CHANGE. TRANSFERRED WITH MAX ASSIST OF TWO TO BSC FOR BOWEL MOVEMENT. PT HAS NEUROPATHY, DIFFICULT FOR HIM TO STAND AND TRANSFER, MAX ASSIST OF TWO TO GET PT INTO BED. PT INCONTIENT OF STOOL X1 WHILE SLEEPING. PERICARE PROVIDED. TYLER TO DD DRAINING DARK YELLOW URINE. SLIDING SCALE INSULIN AT HS PER MAR, SNACK PROVIDED. DRESSING TO WOUNDS INTACT, PT SLEPT IN BILATERAL HEELMEDIX OFFLOADING BOOTS. TURNS SELF IN BED. CALL LIGHT IN REACH, BED ALARM ON FOR SAFETY. HOURLY ROUNDING IN PROGRESS, WILL CONTINUE TO MONITOR.
[2020-10-13 07:30] VITALS: BP 160/68
--- NOTE | 2020-10-13 16:12 | NUR ---
PT WORKED WITH THERAPIES. UP WITH MAX ASSIST OF 2 TO 3, GAIT BELT, AND WALKER. INCONT OF LIQUID STOOLS MULTIPLE TIMES. ABHISHEK CARE AND PADS CHANGED PRN. PT NOT ABLE TO STAND FOR ANY PERIOD OF TIME. TYLER TO DD WITH DARK ORANGE URINE. PT ON PYRIDIUM. DRESSINGS TO R FOOT AND LEG CHANGED. SCHEDULED PRN PAIN MEDICATION GIVEN PER PT REQUEST. FALL PRECAUTIONS IN PLACE. CHAIR ALARM ON. CALL LIGHT IN REACH.
--- NOTE | 2020-10-13 16:47 | NUR ---
TEAM CONFRENCE MEETING HELD FRIDAY. PLAN TO RE-TEAM AND HAVE THE PT REMAIN ON THE UNIT FOR ANOTHER WEEK TO CONTINUE THERAPIES. PT AND SPOUSE IN AGREEMENT WITH THE PLAN. PT PROGRESSING TOWARDS GOALS, BUT BARRIERS ARE DIVIDED ATTENTION, PAIN, MEMORY, AND GENERALIZED DEBILITY. CM WILL REMAIN AVAILABLE TO ASSIST AND FOLLOW NEEDED.
[2020-10-13 20:09] VITALS: BP 140/60
--- NOTE | 2020-10-13 23:56 | NUR ---
ASSUMED CARE AT 1915. PATIENT RESTING IN BED WITH COVERS OVER FACE. TAKES PILLS ALL AT ONE TIME. TYLER DRAINS ORANGE URINE FROM PYRIDIUM. PREVALON BOOTS ON BILAT. REQUESTED TWO VANILLA PUDDINGS AT HS BECAUSE BLOOD SUGAR WAS 110 AND "I DON'T WANT MY BLOOD SUGAR TO BOTTOM OUT." NO SSI INDICATED AT HS. NO C/O PAIN. TURNS SELF. EDUCATION GIVEN REGARDING NEED FOR LOVENOX IN LIGHT OF HX OF ELEVATED D DIMER. HOURLY ROUNDS CONTINUE. BED ALARM ON. CALL LITE IN REACH.
--- NOTE | 2020-10-14 06:13 | NUR ---
SLEPT MOST OF THE SHIFT. TURNS SELF. NO C/O PAIN. TYLER DRAINS ORANGE URINE. HEELMEDIX OFFLOADING BOOTS CONTINUE. HOURLY ROUNDS CONTINUE. BED ALARM ON. CALL LITE IN REACH.
[2020-10-14 08:00] VITALS: BP 141/65
[2020-10-14 11:08] VITALS: BP 141/65
--- NOTE | 2020-10-14 16:31 | NUR ---
PATIENT TURNED Q2, REFUSED TO SIT IN CHAIR STATING IT HURT HIS BOTTOM. PATIENT UPSET ABOUT HAVING DIARRHEA AFTER MEALS. THIS NURSE ORDERED PATIENT MECHANIC DRIVER MEALS TO SEE IF THIS WOULD HELP, PRN LOMOTIL GIVEN ORDERED. PATIENT HAD 2 LARGE INCONTINENT BM'S THIS SHIFT. GI CONSULTED, DR. CROOKS SAW PATIENT THIS EVENING. ORDERS FOR CREON WITH MEALS. SPOKE WITH DR. HARRIS, WILL SEE PATIENT REGARDING DIABETIC FOOT WOUNDS.
[2020-10-14 19:47] VITALS: BP 129/60
--- NOTE | 2020-10-15 00:25 | NUR ---
ASSUMED CARE AT 1915. PATIENT RESTING IN BED. TURNS SELF. TAKES PILLS WHOLE WITH WATER ALL AT ONE TIME. DENIES PAIN. BILAT HEELMEDIX BOOTS ON. DRESSING INTACT. PYRIDIUM HELD BECAUSE PATIENT DENIES URINARY PAIN. INCONTINENT OF VERY LARGE AMOUNT OF LIQUID STOOL AT 2300. PATIENT STATES THIS HAS BEEN GOING ON FOR YEARS, AND HE HOPES THAT THE NEW MEDICINE (ZENPEP) HELPS. FIRST AND ONLY DOSE TONIGHT WITH SUPPER (ORDERED AC). BLOOD SUGAR 79 AT HS. HAD GLUCERNA AND PUDDING (25 G AND 15 G CARBS RESPECTIVELY) AT HS. SLIDING SCALE NOT INDICATED. HOURLY ROUNDS CONTINUE. BED ALARM ON. CALL LITE IN REACH.
--- NOTE | 2020-10-15 06:42 | NUR ---
SLEPT MUCH OF THE NIGHT. TURNS SELF. TOOK PILLS ALL AT ONE TIME. HAS NOT HAD FURTHER INCONTINENT STOOLS AFTER THE ONE AT 2300. PATIENT HAD HS SNACK PRIOR TO 2300 EPISODE, BUT HAS NOT EATEN SINCE HS. NO C/O PAIN. HOURLY ROUNDS CONTINUE. BED ALARM ON. CALL LITE IN REACH.
[2020-10-15 07:50] VITALS: BP 140/64
--- NOTE | 2020-10-15 16:13 | NUR ---
PATIENT TURNED Q2, PATIENT ENCOURAGED TO GET OUT OF BED; PATIENT STATED "I'LL THINK ABOUT IT." PATIENT VERY UPSET THIS MORNING WHEN BREAKFAST ARRIVED STATING "IM NOT GOING TO EAT BECAUSE THEN ILL HAVE TO POOP." PATIENT REMINDED THAT HE WAS STARTED ON MEDICATION BY GI TO HELP WITH DIARRHEA. PATIENT UPSET STATING "I DONT WANT THEM TO TRY EXPIEREMENTS WITH MEDICATIONS." PATIENT CONTINUED TO REFUSE BREAKFAST SO INSULIN WAS HELD THIS AM. PATIENT SPOKE WITH DR. PEOPLES THIS AFTERNOON AND WHEN NURSE CAME TO GIVE PATIENT HIS NOON MEDS PATIENT STATED "I JUST SPOKE WITH DR. PEOPLES AND HE TOLD ME THEY STARTED ME ON MEDICATION FOR MY DIARRHEA." THIS NURSE REMINDED PATIENT THAT HE WAS NOTIFIED OF THIS YESTERDAY AND TODAY, PATIENT DID EAT HIS LUNCH. PATIENT DID HAVE ONE INCONTINENT STOOL EPISODE. DRESSINGS TO WOUNDS CHANGED AND PHOTOS TAKEN PER PROTOCOL. DR HARRIS HERE AFTER WOUND DRESSINGS CHANGED, STATED HE WOULD COME BACK TO SEE PATIENT TOMORROW.
[2020-10-15 19:48] VITALS: BP 124/65
--- NOTE | 2020-10-16 00:50 | NUR ---
ASSUMED CARE AT 1915. PATIENT RESTING IN BED. INCONTINENT OF STOOL AT BEGINNING OF SHIFT, SKIN CARE DONE, MOISTURE BARRIER APPLIED. REGARDING HS SNACK, C/O "I DON'T WANT TO EAT BECAUSE EVERY TIME I DO I POOP" BLOOD SUGAR AT HS 132. PATIENT REFUSED HS SNACK INCLUDING LOW FAT OPTIONS SUCH CHRISTEN CRACKERS. DURING THIS CONVERSATION, PATIENT BECAME INCONTINENT OF LIQUID STOOL. SKIN CARE AND MOISTURE BARRIER REPEATED. TAKES PILLS WHOLE ALL AT ONE TIME WITH WATER. GIVEN PRN LOMOTIL, SEE MAR. DENIES PAIN. DRESSINGS TO WOUNDS INTACT. BILAT FEET IN HEELMEDIX BOOTS. ASSISTED WITH TURNS. HOURLY ROUNDS CONTINUE. BED ALARM ON. CALL LITE IN REACH.
--- NOTE | 2020-10-16 05:44 | NUR ---
SLEPT MOST OF NIGHT. HAD ANOTHER INCONTINENT EPISODE IN HIS SLEEP. SKIN CARE DONE, MOISTURE BARRIER APPLIED. TURNS SELF. NO C/O PAIN. HOURLY ROUNDS CONTINUE. BED ALARM ON. CALL LITE IN REACH.
[2020-10-16 08:15] VITALS: BP 132/58
[2020-10-16 13:21] LABS: HEMATOCRIT 25.2 % (42.0-52.0); HEMOGLOBIN 8.1 gm/dL (14.0-18.0); MCH 26.3 pg (26.0-34.0); MCHC 32.1 g/dL (28.0-37.0); MCV 81.7 fL (80.0-100.0); MPV 6.6 fl. (7.2-11.1); RBC 3.08 mil/uL (4.50-6.00); RDW-CV 14.1 % (10.5-14.5); WBC 7.8 thou/uL (4.0-11.0)
[2020-10-16 13:25] LABS: CALCIUM 8.6 mg/dL (8.5-10.1); CREATININE 1.6 mg/dL (0.6-1.3)
--- NOTE | 2020-10-16 18:28 | NUR ---
ALERT AND ORIENTED X4. UP WITH 2 ASSIST, GAIT BELT AND WALKER TO BEDSIDE COMMODE. TYLER CATHETER D/C AND CURRENTLY TRYING VOIDING TRIAL. HAS NOT VOIDED YET AT THIS TIME. WILL CONTINUE TO MONITOR. DRESSINGS DRY AND INTACT OVER WOUNDS ON LOWER LEGS. USES HEELMEDIX ON BILATERAL HEELS WHEN IN BED. INCONTINENT OF 1 SOFT LOOSE STOOL THIS EVENING. USES CALL LIGHT WITHIN REACH FOR ASSIST. FALL PRECAUTIONS IN PLACE WITH BED ALARM AND CHAIR ALARMS USED.
[2020-10-16 19:00] VITALS: BP 109/57
--- NOTE | 2020-10-16 19:20 | NUR ---
PATIENT UNABLE TO VOID AT 6 HOURS AFTER TYLER CATHETER D/C. BLADDER SCAN SHOWED 222ML IN BLADDER WILL CONTINUE TO MONITOR.
--- NOTE | 2020-10-17 05:23 | NUR ---
ASSUMED CARES AT 1920. ALERT AND ORIENTED. DENIED ANY PAIN. PT CONCERNED ABOUT WEAKNESS AND LOOSE STOOLS. MAX ASSIST X 2 PERSON. STAND AND PIVOT. VERY WEAK. UP TO BSC BUT ONLY VOIDED 50 CC. BLADDER SCAN SHOWED OVER 850. TYLER CATHETER PLACED WITH 900 CC YELLOW URINE. DID HAVE FEW SOFT LOOSE STOOL INCONTINENCE. LOMOTIL GIVEN. DRSG TO RLE WOUNDS INTACT. HEEL BOOTS IN PLACE. PT REFUSED TO TAKE ANY S/S INSULIN FOR ACCUCHECK OF 157 AND REFUSED SNACK. SLEPT MOST OF THE NIGHT. CALL LIGHT IN REACH AND BED ALARM ON.
[2020-10-17 08:10] VITALS: BP 123/54
--- NOTE | 2020-10-17 15:24 | NUR ---
RE TEAM: PT DENIES QUESTIONS/CONCERNS. PT'S /PLACIDO, WANTS TO KNOW WHY CATHERER COMES IN & OUT. WANTS TO KNOW IF THERE IS A BLOCKAGE PREVENTING HIM FROM URNINATING.
--- NOTE | 2020-10-17 16:58 | NUR ---
PT WORKED WITH THERAPIES. REPORTS THAT HE FEELS WEAK. INCONT OF STOOL. TYLER TO DD. PT UPDATED ON PT CONDITION. , PLACIDO, REQUESTED TO TALK TO UROLOGY. GIGI CHAUHAN WITH UROLOGY ATTEMPTED TO REACH BUT SHE DID NOT ANSWER. CALLED BACK AND UPDATED HER ON WHAT GIGI STATED. DR CARMEN'S OFFICE NOTIFIED OF CONSULT THAT WAS PUT IN ON 10/10. DR CARMEN TO SEE PT TODAY OR TOMARROW. PT UP WITH MAX ASSIST O2 2. FALL PRECAUTIONS IN PLACE. CALL LIGHT IN REACH.
[2020-10-17 19:00] VITALS: BP 120/60
--- NOTE | 2020-10-18 04:50 | NUR ---
ASSUMED CARES AT 1920. ALERT AND ORIENTED. PLEASANT. DENIED ANY PAIN. TYLER CATHETER DD ORANGE URINE. DID HAVE SOFT UNFORMED STOOL INCONTINENCE X 2. SLEPT OFF AND ON. CALL LIGHT IN REACH AND BED ALARM ON.
[2020-10-18 04:59] LABS: HEMATOCRIT 23.3 % (42.0-52.0); HEMOGLOBIN 7.6 gm/dL (14.0-18.0); MCH 25.9 pg (26.0-34.0); MCHC 32.5 g/dL (28.0-37.0); MCV 79.9 fL (80.0-100.0); MPV 6.7 fl. (7.2-11.1); RBC 2.92 mil/uL (4.50-6.00); RDW-CV 13.9 % (10.5-14.5); WBC 7.4 thou/uL (4.0-11.0)
[2020-10-18 05:07] LABS: CALCIUM 8.8 mg/dL (8.5-10.1); CREATININE 1.6 mg/dL (0.6-1.3); POTASSIUM 4.7 mmol/L (3.5-5.1)
[2020-10-18 07:52] VITALS: BP 115/60
--- NOTE | 2020-10-18 16:15 | NUR ---
PT WORKED SOME WITH THERAPIES. AFRAID THAT HE WILL BE INCONT OF STOOL WHILE WORKING WITH THEM. PT INCONT OF SOFT STOOLS X2. ABHISHEK CARE AND PAD CHANGED PRN. TYLER TO DD. WOUNDS TO BILATERAL HEALS AND R KNEE. SPOKE WITH PT'S , PLACIDO AND UPDATED HER ON PT CONDITION. PRN PAIN MEDICATION GIVEN. FALL PRECAUTIONS IN PLACE. CALL LIGHT IN REACH.
--- NOTE | 2020-10-18 17:57 | NUR ---
DR CARMEN HERE TO SEE PT. DEBRIDEMENT OF WOUND ON OUTER KNEE AREA OF R LEG. DRESSING IN PLACE.
[2020-10-18 20:13] VITALS: BP 128/61
--- NOTE | 2020-10-19 05:14 | NUR ---
ASSUMED CARES AT 1920. ALERT AND ORIENTED. PLEASANT. DENIED ANY NEED FOR PAIN MEDS. TYLER CATHETER DD ORANGE URINE. ACCUCHECK AT HS 162 BUT PT REFUSED S/S INSULIN OR SNACK. SLEPT WELL. CALL LIGHT IN REACH AND BED ALARM ON.
[2020-10-19 07:40] VITALS: BP 126/60
--- NOTE | 2020-10-19 09:14 | NUR ---
WOUND NURSE: PATIENT SEEN FOR F/U ASSESSMENT PERTAINING TO DFU'S: LEFT HEEL CURRENTLY MEASURES 3.0 X 4.0 CM. CONTAINS STABLE BLACKENED ESCHAR WITH NO DRAINAGE OR OPEN WOUND. RIGHT HEEL WITH FADING ECCHYMOSIS, PALE RED IN COLOR, NONBLANCHEABLE. WILL CONTINUE HEELMEDIX BOOTS. BETADINE SWAB TO LEFT HEEL. RIGHT FOOT 5TH METATARSAL PRESENTS SHALLOW LESION, 50% DRIED RED, GRANULATION TISSUE, 50% DRIED SUPERFICIAL LIGHT [place] EXUDATE. MEASURES 2.1 X 1.1 X 0.1 CM. APPLIED SALINE MOISTENED AQUACEL AG UNDER BORDERED FOAM DRESSING. RIGHT LATERAL LOWER LEG WOUND NOW MEASURES 2.7 X 1.5 X 0.2 CM. THIS WAS DEBRIDED AT THE BEDSIDE BY DR. HARRIS YESTERDAY. UNABLE TO FIND POST DEBRIDEMENT ON CHART. WOUND BED CONTAINS RED, NONGRANULATION TISSUE AND SMALL AMOUNT OF SANGUINOUS DRAINAGE NOTED. QUARTER SIZED AREA OF STRIKE THROUGH ON THE OLD DRESSING. STAFF NURSE, SHAWN TO OBTAIN POST DEBRIDEMENT PHOTO TODAY. PATIENT REINSTRUCTED ON MEASURES TO PROMOTE HEALING AND PREVENT COMPLICATING FACTORS, I.E., NUTRITIONAL NEEDS, OFFLOADING WITH HEELMEDIX BOOTS. PATIENT STATES HE UNDERSTANDS.
--- NOTE | 2020-10-19 15:51 | NUR ---
TEAM CONFRENCE MEETING HELD YESTERDAY. PT AND SPOUSE INFORMED OF MEETING AND PLAN WATCH HIS PROGRESS OVER THE NEXT FEW DAYS AND REASSESS PT'S PROGRESS ON FRIDAY. PT MADE MINIMAL PROGRESS OVER THE WEEK AND WILL LIKELY NEED SNF AT D/C. BARRIERS INCLUDE PT'S REDUCED MOTIVATION, FETIGUE, DEPRESSION, DECRESED INSIGHT, MEMORY, AND NECK PAIN. PT AND SPOUSE IN AGREEMENT WITH THIS PLAN. PT'S SPOUSE INFORMED OF THE NEED TO CONSIDER LOOKING INTO SNF OPTIONS IN THE EVENT THAT THE PT DOES NOT MAKE ENOUGH PROGRESS TO REMAIN ON THE INPT REHAB UNIT. CM TO F/U WITH PT'S SPOUSE TO PROVIDE SNF LIST. CM WILL REMAIN AVAILABLE TO ASSIST AND FOLLOW NEEDED.
--- NOTE | 2020-10-19 15:53 | CON ---
[address] [address] CONSULTATION Name: ZENON SALVADOR Room: [address] IN M.R.#: [id number] Admission: 10/04/20 Attend Phys: Flaco Ramirez MD Discharge: Date of : 52 Report #: [id number] THIS REPORT FOR: cc: KHURRAM - No family physician/PCP FAM - No family physician/PCP Carmela Reardon MD ~ DOC #: [id number] Carmela Reardon MD DATE OF CONSULTATION: 10/14/2020 REASON FOR CONSULTATION: Chronic diarrhea. HISTORY OF PRESENT ILLNESS: This is a 69-year-old male with history of diabetes and peripheral neuropathy, who also has had recent sepsis due to urinary tract infection. The patient currently is in rehabilitation and appears stable. He reports that anytime he eats something within minutes he has to go to the bathroom. He denies any hematochezia or melena. He also denies any upper GI symptoms as he denies nausea, vomiting, dyspepsia, and GERD. He believes that he had upper and lower endoscopy with my partner, Dr. Elkins, a couple of years ago. He reports that he does not believe that there was any explanation for his chronic diarrhea. The patient reports that at one point he was given cholestyramine, which helped him for a while and then it quit working. PAST MEDICAL HISTORY: Significant for history of diabetes mellitus, peripheral neuropathy, hypertension, dyslipidemia, chronic back pain, lower extremity wounds, which are chronic, UTI, sepsis, hypernatremia, DVT, bilateral foot drop, and impairment of his mobility. ALLERGIES: Please refer to MAR. MEDICATIONS: Please refer to MAR. SOCIAL HISTORY: The patient has impairment of his motility. Denies tobacco or alcohol use. FAMILY HISTORY: Noncontributory. PHYSICAL EXAMINATION: VITAL SIGNS: Reveals blood pressure of 141/65, respirations 18, pulse 71, temperature 97.9. LUNGS: Clear. CARDIOVASCULAR: Regular. ABDOMEN: Soft, nontender, nondistended. [place] [address] CONSULTATION Name: ZENON SALVADOR Room: [address] IN [facility].#: [id number] Admission: 10/04/20 Attend Phys: Flaco Ramirez MD Discharge: Date of : 52 Report #: [id number] NEUROLOGIC: The patient is alert and oriented x 3. LABORATORY DATA: Labs from 10/11 revealed sodium of 140, potassium 4.6, BUN is 25, creatinine 1.7, glucose is 144. Liver enzymes are within normal limits. Total bilirubin is 1.3, albumin is 3.0. WBC is 7.3 with hemoglobin of 8.2 and platelets of 365. ASSESSMENT AND PLAN: The patient with chronic diarrhea who has had a workup in the past with not much findings. I will review his upper and lower endoscopy, which was performed by Dr. Elkins a couple years ago to ensure that biopsies from the duodenum and colon were obtained to rule out microscopic colitis and celiac sprue. Meanwhile, he mentions to me that at one point he had partially responded to cholestyramine, but this effect worn off over time. This may be secondary to pancreatic insufficiency. I will try Creon 36,000 units with each meal and followup. MD JOSE Brewer/KEYUR/DUANE <ELECTRONICALLY SIGNED> By: Carmela Reardon MD 10/19/20 1553 [id number] Reardon MD /nt
--- NOTE | 2020-10-19 16:09 | NUR ---
PATIENT COMPLETED THERAPIES ORDERED. UP WITH MOD ASSISTANCE; GAIT BELT AND WALKER. LIDODERM PATCH ORDERED AND PLACED TO BACK OF NECK. BM NOTED X 1 THIS SHIFT. TYLER DRAINING ORANGE COLORED URINE. HERE THIS EVENING. FAIR APPETITE, INSULIN GIVEN WITH MEALS ORDERED.
[2020-10-19 20:16] VITALS: BP 117/48
--- NOTE | 2020-10-20 04:54 | NUR ---
ASSUMED PT CARE AT 1930. PT ALERT AND ORIENTED X4, POLITE AND COOPERATIVE WITH CARES. ACCUCHECK AT HS 225, INSULIN PER MAR, SNACK PROVIDED. DENIES PAIN. INCONTIENT OF STOOL X2. TYLER TO DD, DRAINING DARK YELLOW URINE. SLEPT WELL OVERNIGHT. CALL LIGHT IN REACH, BED ALARM ON FOR SAFETY. HOURLY ROUNDING IN PROGRESS, WILL CONTINUE TO MONITOR.
[2020-10-20 07:30] VITALS: BP 133/63
[2020-10-20 15:20] VITALS: BP 89/40
[2020-10-20 16:00] VITALS: BP 143/64
--- NOTE | 2020-10-20 17:41 | NUR ---
PATIENT UP WITH ASSISTANCE; GAIT BELT AND WALKER. TYLER IN PLACE, DRAINING YELLOW URINE. NO BM THIS SHIFT. UP TO CHAIR. PATIENT WORKING WITH OT THIS AFTERNOON AND STATED HE WAS DIZZY AND SEEING ORANGE SPOTS. GLUCOSE AT THAT TIME WAS WITHIN NORMAL LIMITS, BP WAS SOFT CHARTED AND DR. PEOPLES NOTIFIED WITH NO NEW ORDERS RECEIVED. PATIENT HAD CERVICAL XRAY THIS EVENING FOR NECK PAIN, PATIENT REFUSING CERVICAL COLLAR THAT WAS ORDERED PER DR. BACON. INSULIN GIVEN WITH MEALS ORDERED. DRESSINGS IN PLACE TO WOUNDS.
[2020-10-20 20:04] VITALS: BP 142/61
--- NOTE | 2020-10-21 05:09 | NUR ---
ASSUMED PT CARE AT 1930. PT ALERT AND ORIENTED X4, POLITE AND COOPERATIVE WITH CARES. ACCUCHECK AT HS 193, INSULIN PER MAR, SNACK PROVIDED. DENIES PAIN. TYLER TO DD, DRAINING DARK YELLOW URINE. NO STOOL THIS SHIFT. SLEPT WELL OVERNIGHT. CALL LIGHT IN RECH, BED ALARM ON FOR SAFETY. HOURLY ROUNDING IN PROGRESS, WILL CONTINUE TO MONITOR.
[2020-10-21 08:06] VITALS: BP 172/61
--- NOTE | 2020-10-21 16:30 | NUR ---
PT UP WITH GAIT BELT, WALKER, AND ASSIST OF 1 TO 2. SCHEDULED PAIN MEDICATION GIVEN. PT UP TO CHAIR. TYLER TO DD. REFUSED TO WEAR NECK COLLAR. DRESSINGS TO RLE C/D/I. NO STOOL TODAY. HAD A VISITOR. FALL PRECAUTIONS IN PLACE. CALL LIGHT IN REACH.
[2020-10-21 19:00] VITALS: BP 111/69
--- NOTE | 2020-10-22 05:19 | NUR ---
ASSUMED PT CARE AT 1930. PT ALERT AND ORIENTED X4, POLITE AND COOPERATIVE WITH CARES. ACCUCHECK AT HS 202, INSULIN PER MAR, SNACK PROVIDED. DENIES PAIN. TYLER TO DD, DRAINING DARK YELLOW URINE. INCONTINENT OF STOOL. SLEPT WELL OVERNIGHT. CALL LIGHT IN REACH, BED ALARM ON FOR SAFETY. HOURLY ROUNDING IN PROGRESS, WILL CONTINUE TO MONITOR.
[2020-10-22 07:46] VITALS: BP 137/66
--- NOTE | 2020-10-22 16:45 | NUR ---
PT UP WITH GAIT BELT, WALKER, AND MAX ASSIST X2. INCONT OF STOOL X2. DRESSINGS TO WOUNDS CHANGED. BOOTS TO BILATERAL FEET. REFUSES TO WEAR COLLAR FOR NECK PAIN. PRN AND SCHEDULED PAIN MEDICATION GIVEN. TYLER TO VIRGIE. AT BEDSIDE. FALL PRECAUTIONS IN PLACE. CALL LIGHT IN REACH.
[2020-10-22 20:18] VITALS: BP 119/50
--- NOTE | 2020-10-23 05:02 | NUR ---
ASSUMED CARES AT 1920. ALERT AND ORIENTED. PLEASANT. DENIED ANY NEED FOR PAIN MEDS. TYLER CATHETER DD ORANGE URINE. HEEL BOOTS IN BED. REPOSITIONED WHEN AGREEABLE. SLEPT WELL. CALL LIGHT IN REACH AND BED ALARM ON.
[2020-10-23 07:47] VITALS: BP 120/60
--- NOTE | 2020-10-23 16:25 | NUR ---
PT WORKED WITH THERAPIES. WEARS OUT QUICKLEY. UP WITH GAIT BELT. WALKER, AND ASSIST X2. NAYELI TO DD. WOUNDS TO BLE. DRESSINGS C/D/I. BOOTS ON BLE. PRN AND SCHEDULED PAIN MEDICATIONS GIVEN. FALL PRECAUTIONS IN PLACE. CALL LIGHT IN REACH.
--- NOTE | 2020-10-23 17:48 | NUR ---
CM SPOKE TO THE PT'S SPOUSE TO DISCUSS TEAMS DECISION AND TO INFORM OF PLAN FOR PT TO REMAIN ON THE REHAB UNIT UNTIL FRIDAY AND TEAM WILL MAKE A DECISION ABOUT POSSIBLE NEED FOR PT TO GO TO SNF. PT AND SPOUSE IN AGREEMENT WITH PLAN. CM WILL REMAIN AVAILABLE TO ASSIST AND FOLLOW NEEDED.
[2020-10-23 19:00] VITALS: BP 120/61
--- NOTE | 2020-10-24 04:30 | NUR ---
ASSUMED PT CARE AT 1930. PT ALERT AND ORIENTED X4, POLITE AND COOPERATIVE WITH CARES. TYLER TO DD, DRAINING DARK YELLOW URINE. DRESSING TO LEG WOUNDS C/D/I. BOOTS ON BOTH FEET. PRN PAIN MEDICATION X1 AT HS. RESPOSITIONED WHEN AGREEABLE. CALL LIGHT IN REACH, BED ALARM ON FOR SAFETY. HOURLY ROUNDING IN PROGRESS, WILL CONTINUE TO MONITOR.
[2020-10-24 07:50] VITALS: BP 127/77
--- NOTE | 2020-10-24 16:43 | NUR ---
PATIENT COMPLETED THERAPIES THIS SHIFT ORDERED. UP WITH ASSISTANCE, GAIT BELT AND WALKER. NO BM NOTED THIS SHIFT. DRESSINGS REMAIN IN PLACE TO WOUNDS, PER MAINE WOUND NURSE WILL COME BY TOMORROW TO OBSERVE. TYLER DRAINING ORANGE/DARK YELLOW URINE. PRN TYLENOL #3 GIVEN THIS AM FOR NECK PAIN, NO FURTHER COMPLAINTS. INSULIN GIVEN WITH MEALS WHEN REQUIRED.
[2020-10-24 20:05] VITALS: BP 130/63
[2020-10-25 05:12] LABS: HEMATOCRIT 20.4 % (42.0-52.0); MCH 26.4 pg (26.0-34.0); MCHC 33.4 g/dL (28.0-37.0); MCV 79.1 fL (80.0-100.0); MPV 6.9 fl. (7.2-11.1); RBC 2.57 mil/uL (4.50-6.00); RDW-CV 14.5 % (10.5-14.5)
--- NOTE | 2020-10-25 05:13 | NUR ---
ASSUMED PT CARE AT 1930. PT ALERT AND ORIENTED X4, POLITE AND COOPERATIVE WITH CARES. TYLER TO DD, DRAINING DARK YELLOW URINE. STOOL X1 THIS SHIFT. DRESSINGS TO LEG WOUNDS C/D/I. WOUND NURSE TO SEE PT TODAY. HEELMEDIX BOOTS BILAT. DENIED PAIN. REPOSITIONED WHEN AGREEABLE, PT CAN TURN HIMSELF IN BED. INSULIN GIVEN PER AUG. USES CALL LIGHT APPROPRIATELY. CALL LIGHT IN REACH, BED ALARM ON FOR SAFETY. HOURLY ROUNDING IN PROGRESS, WILL CONTINUE TO MONITOR.
[2020-10-25 05:24] LABS: CALCIUM 8.7 mg/dL (8.5-10.1); CREATININE 1.1 mg/dL (0.6-1.3); POTASSIUM 5.2 mmol/L (3.5-5.1)
[2020-10-25 05:49] LABS: HEMOGLOBIN 6.8 gm/dL (14.0-18.0)
--- NOTE | 2020-10-25 09:50 | NUR ---
WOUND NURSE:PATIENT SEEN FOR FOLLOW UP ASSESSMENT OF DIABETIC ULCERS. RIGHT 5TH METATARSAL WOUND MEASURES 2.0 X 1.5 X 0.2 CM. CONTAINS RED GRANULATION TISSUE ALONG THE WOUND EDGES, YELLOW FIRMLY ADHERENT EXUDATE OVER 50% OF THE WOUND BED, SCANT SEROUSANGUINOUS DRAINAGE. SLIGHT PERIWOUND REDNESS, NO WARMTH OR INDURATION. RIGHT LATERAL LOWER EXTREMITY MEASURES 3.0 X 1.8 X 0.2 CM. CONTAINS 75% RED, GRANULATION TISSUE, 25% YELLOW SLOUGH. NO PERIWOUND REDNESS, WARMTH, OR INDURATION. SMALL AMOUNT OF YELLOWISH OPAQUE DRAIANGE. PATIENT REINSTRUCTED ON NUTRITIONAL NEEDS TO PROMOTE HEALING WITH GOOD UNDERSTANDING ACHIEVED.
[2020-10-25 14:08] VITALS: BP 156/70; BP 166/81
--- NOTE | 2020-10-25 18:11 | NUR ---
PT AO X4 HGB6.8 THIS AM 1U PRBCs TRANSFUSED. PT IS EXTREMELY WEAK AND NSG IS USING SALAS TO GET HIM FROM BSC TO CHAIR. HE HAD 3 STOOLS TODAY WITH ONE BEING LOOSE, STOOL SPECIMENT SENT TO LAB FOR GUIAC. PT EATING WELL AND IS CONVERSATIONAL, CALLING ON PHONE FOR SUPPORT. IV IN RT FA INFILTRATED WHILE RECEIVING BLOOD, PT REPORTS NO PAIN. WARM BLANKET TO ARM FOR COMFORT.
[2020-10-25 19:00] VITALS: BP 143/65
[2020-10-25 19:03] LABS: HEMATOCRIT 21.6 % (42.0-52.0); HEMOGLOBIN 7.1 gm/dL (14.0-18.0)
--- NOTE | 2020-10-26 05:54 | NUR ---
ASSUMED CARES AT 1920. ALERT AND ORIENTED. PLEASANT. DENIED ANY NEED FOR PAIN MEDS. TYLER CATHETER DD YELLOW URINE. DRSG TO RLE INTACT. HEEL BOOTS IN PLACE. RECHECK HGB: 7.1. TURNED SELF IN BED. SLEPT WELL. CALL LIGHT IN REACH AND BED ALARM ON.
[2020-10-26 08:07] VITALS: BP 148/68
--- NOTE | 2020-10-26 09:17 | NUR ---
Nutrition: Consult received for poor intake, but pt is eating well. Wt recorded as 176#, usual wt is ~190# - PLEASE REWEIGH FOR ACCURACY. Albumin 3. Wound on RLE, Jaden ordered. CHO controlled diet. Will continue to follow weekly. Mild risk.
--- NOTE | 2020-10-26 12:40 | CON ---
[address] [address] CONSULTATION Name: ZENON SALVADOR Room: [address] ADM IN M.R.#: [id number] Admission: 10/04/20 Attend Phys: Flaco Ramirez MD Discharge: Date of : 52 Report #: [id number] THIS REPORT FOR: cc: FAM - No family physician/PCP FAM - No family physician/PCP Miles Baker DPM ~ DOC #: [id number] Miles Baker DPM DATE OF CONSULTATION: 10/18/2020 CHIEF COMPLAINT: Followup of ulceration to the right lateral 5th MTP joint and proximal lower leg. He is currently not on antibiotics, he does have a history of MRSA cultured from the right upper leg wound. He was previously on parental vancomycin while on the inpatient unit. He denies leg pain, he has improved appetite and strength with physical therapy. Wound care has consisted of Aquacel AG and bordered foam to both areas. LABORATORY DATA: WBC 7.4, RBC 2.92, hemoglobin 7.6, hematocrit 23.3, platelets 239, BUN 39, creatinine 1.6, and glucose 117. PHYSICAL EXAMINATION: Ulceration to the right lateral leg has a lucent brown eschar. Minimal inflammation with no angel erythema or cellulitis. I debrided the wound with the scalpel to remove most of the brown eschar from the underlying fibrotic base. This was an excisional full-thickness ulceration from the subcutaneous tissue layer. There was no visible tendon or bone. There was no purulence or signs of underlying abscess. Bleeding was stopped with direct pressure and the wound was cleansed and dressed with Aquacel Ag and a bordered foam gauze. I did not debride the wound to the right lateral fifth MTP joint. It was cleansed and dressed with Aquacel Ag and a bordered foam. That wound had pink granulation with roughly 20% pale fibrous slough to the wound bed. There was no inflammation or cardinal signs of infection. There was no exposed bone or tendon to the region. His foot was warm with no pallor/cyanosis or signs of acute vascular embarrassment. Overall, the wounds are clinically improved since transferred to the skilled rehab unit. IMPRESSION: Ulcerations, right lower extremity with type 2 diabetes mellitus, peripheral artery disease and history of methicillin-resistant Staphylococcus aureus. PLAN: Excisional ulcer debridement of the proximal right leg wound as previously discussed. I used a 15 blade scalpel to excise subcutaneous tissue and fibrous slough from the subcutaneous tissue layer. This was an excisional ulcer debridement. Both wounds were redressed [place] [address] CONSULTATION Name: ZENON SALVADOR Room: [address] IN .R.#: [id number] Admission: 10/04/20 Attend Phys: Flaco Ramirez MD Discharge: Date of : 52 Report #: [id number] foams. I will follow the patient weekly to monitor progress. ANNA Robison <ELECTRONICALLY SIGNED> By: Miles Baker DPM 10/26/20 1240 [id number] Baker DPM /nt
--- NOTE | 2020-10-26 12:40 | CON ---
[address] [address] CONSULTATION Name: MADELEINEZENON GANN Room: [address] ADM IN M.R.#: [id number] Admission: 10/04/20 Attend Phys: Flaco Ramirez MD Discharge: Date of : 52 Report #: [id number] THIS REPORT FOR: cc: FAM - No family physician/PCP FAM - No family physician/PCP Miles Baker DPM ~ DOC #: [id number] Miles Baker DPM CHIEF COMPLAINT: Followup evaluation of wound to the right lateral foot. DICTATION ENDS AT THIS POINT. ANNA Robison/GENEVA <ELECTRONICALLY SIGNED> By: Miles Baker DPM 10/26/20 1240 1827 [id number] Baker DPM /nt
--- NOTE | 2020-10-26 15:31 | NUR ---
TEAM CONFRENCE MEETING HELD YESTERDAY. CM AND PHYSICIAN INFORMED PT AND SPOUSE OF THE MEETING AND PLAN TO D/C PT TO [facility] WHEN MEDICALLY STABLE. AT THIS TIME PT'S HGB IS LOW AND REQUIRED TRANSFUSION. PT'S SPOUSE INFORMS OF DESIRE FOR PT TO GO TO [facility] AT D/C AND PT IN AGREEMENT. CM FAXED [facility] PT'S CLINICAL INFO AND PT/OT NOTES. [facility] ACCEPTED PT PENDING PT BEING MEDICALLY STABLE. CM WILL REMAIN AVAILABLE TO ASSIST AND FOLLOW NEEDED. [facility] ([facility]) PHONE: [phone] FAX: [phone]
--- NOTE | 2020-10-26 17:12 | NUR ---
PT HAD MUCH MORE STAMINA TODAY, UP TO CHAIR AND USING WALKER MUCH BETTER. GETTING LOMOTIL AT MEALS AND WOULD LIKE THIS TO BE SCHEDULED IF POSSIBLE, HE STATES HE HAD ONE LOOSE STOOL IN THE NIGHT BUT NO LOOSE BM TODAY. HIS VISITED FOR SUPPORT. PT SAT IN CHAIR MOST OF THE DAY AND HAD NEG VENOUS DOPPLER OF LLE FOR CONTINUED SWELLING OF LEG. BED ALARM ON FOR SAFETY
[2020-10-26 20:12] VITALS: BP 152/64
[2020-10-27 04:29] LABS: ABSOLUTE BASOPHILS 0.1 thou/uL (0.0-0.2); ABSOLUTE EOSINOPHILS 0.6 thou/uL (0.0-0.7); ABSOLUTE LYMPHOCYTES 1.7 thou/uL (0.8-5.3); ABSOLUTE MONOCYTES 0.8 thou/uL (0.0-1.2); ABSOLUTE NEUTROPHILS 4.6 thou/uL (1.6-8.1); BASOPHILS 0.8 %; EOSINOPHILS 7.9 %; HEMATOCRIT 22.8 % (42.0-52.0); HEMOGLOBIN 7.5 gm/dL (14.0-18.0); LYMPHOCYTES 22.5 %; MCH 26.2 pg (26.0-34.0); MCHC 33.1 g/dL (28.0-37.0); MCV 79.1 fL (80.0-100.0); MONOCYTES 10.2 %; MPV 6.6 fl. (7.2-11.1); NUCLEATED RBCS 0 /100WBC; PLATELET COUNT* 471 thou/uL (150-400); POLYS 58.6 %; RBC 2.88 mil/uL (4.50-6.00); RDW-CV 14.6 % (10.5-14.5); WBC 7.8 thou/uL (4.0-11.0)
[2020-10-27 04:44] LABS: CALCIUM 9.1 mg/dL (8.5-10.1); CREATININE 1.2 mg/dL (0.6-1.3); POTASSIUM 5.5 mmol/L (3.5-5.1)
--- NOTE | 2020-10-27 05:16 | NUR ---
ASSUMED CARES AT 1920. ALERT AND ORIENTED. IN GOOD SPIRITS. SAYS THAT GETTING BLOOD HELPED FEELING BETTER. MAX ASSIST X 2 PERSON WITH WALKER. TYLER CATHETER DD YELLOW URINE. DENIED ANY NEED FOR PAIN MEDS. HEEL BOOTS WHILE IN BED. PT TURNED SELF. SLEPT WELL. CALL LIGHT IN REACH AND BED ALARM ON.
[2020-10-27 08:22] VITALS: BP 106/67
[2020-10-27] MEDS ORDERED: ZENPEP DR 5,001 EAC1 PO (09:36)
[2020-10-27] MEDS ORDERED: APAP W/CODEINE1 TA2 PO (09:36)
[2020-10-27] MEDS ORDERED: LIDOPATCH1 EACH TOP (09:36)
[2020-10-27] MEDS ORDERED: FLOMAX0.4 MG PO (09:36)
[2020-10-27] MEDS ORDERED: ACETAMINOPHEN325 M1 PO (09:36)
[2020-10-27] MEDS ORDERED: ALEVE220 MG PO (09:36)
[2020-10-27] MEDS ORDERED: PHENAZOPYRIDIN100 M1 PO (09:36)
[2020-10-27] MEDS ORDERED: BAYER CHEWABLE81 MG PO (09:36)
--- NOTE | 2020-10-27 13:55 | NUR ---
WOUND NURSE: PATIENT SEEN FOR FOLLOW UP ASSESSMENT OF RT FOOT AND LEG WOUND. PRESENTS WITHOUT CHANGE FROM PREVIOUS ASSESSMENT BY THIS NURSE EARLIER IN THE WEEK. CLEANSED WITH WOUND CLEANSER AND GAUZE, APPLIED SKIN PREP TO INTACT PERIWOUND TISSUE. APPLIED THERA HONEY TO EACH WOUND, COVERED WITH AQUACEL UNDER BORDERED FOAM DRESSING. THIS WAS TOLERATED WELL BY THE PATIENT. PATIENT REINSTRUCTED ON MEASURES TO PROMOTE HEALING AND PREVENT COMPLICATIONS. PATIENT STATES HE UNDERSTANDS. PATIENT SCHEDULED TO FOLLOW UP WITH DR. STEVEN DPM IN [facility] IN 2 WEEKS, PT TO SEE DR. BULL NEXT Friday11/03/20. PATIENT PROVIDED INFORMATION ON DISCHARGE.
[2020-10-27 14:04] VITALS: BP 106/67
--- NOTE | 2020-10-27 17:49 | NUR ---
PT DISCHARGED TO [facility]. INFORMED OF DISCHARGE. PT TRANSPORTED PER WHEELCHAIR VAN WITH TRANSPORTER. ALL BELONGINGS SENT WITH PT INCLUDING CELL PHONE, GIS DATABASE ADMINISTRATOR, AND BATTERY POWERED TOOTHBRUSH. TYLER CATHETER LEFT IN PLACE. IV ACCESS REMOVED.
== END 2020-10-27 17:53 | DRG 939 ==
LOC: M.REH 15:57
PROVIDERS: Family Medicine; Internal Medicine; ADMIT Physical Medicine & Rehabilitation; ATTEND Physical Medicine & Rehabilitation
PROC: 0JBQ0ZZ Excision of Right Foot Subcutaneous Tissue and Fascia, Open Approach (ICD-10-PCS; principal; 2020-10-04)
PROC: 30233N1 Transfusion of Nonautologous Red Blood Cells into Peripheral Vein, Percutaneous Approach (ICD-10-PCS; 2020-10-25)
DX: R53.81 Other malaise (principal); N17.0 Acute kidney failure with tubular necrosis; I48.92 Unspecified atrial flutter; B37.49 Other urogenital candidiasis; E87.1 Hypo-osmolality and hyponatremia; K52.9 Noninfective gastroenteritis and colitis, unspecified; D50.0 Iron deficiency anemia secondary to blood loss (chronic); R29.6 Repeated falls; I10 Essential (primary) hypertension; E78.5 Hyperlipidemia, unspecified; I48.91 Unspecified atrial fibrillation; E11.42 Type 2 diabetes mellitus with diabetic polyneuropathy; Z20.822 Contact with and (suspected) exposure to COVID-19; G89.29 Other chronic pain; M54.9 Dorsalgia, unspecified; E11.621 Type 2 diabetes mellitus with foot ulcer; L97.519 Non-pressure chronic ulcer of other part of right foot with unspecified severity; M48.02 Spinal stenosis, cervical region; N40.1 Benign prostatic hyperplasia with lower urinary tract symptoms; R33.8 Other retention of urine

== ENCOUNTER → 2020-11-09 | Day surgery (SDC) | payer MEDICARE, OTHER ==
[~2020-11-09] MED LIST changes: +ACETAMINOPHEN325 M1 PO; +ALEVE220 MG PO; +APAP W/CODEINE1 TA2 PO; +BACTRIM DS TAB1 EAC1 PO; +BAYER CHEWABLE81 MG PO; +COLACE100 MG PO; +LIDOPATCH1 EACH TOP; +PHENAZOPYRIDIN100 M1 PO; +ZENPEP DR 5,001 EAC1 PO
--- NOTE | ~2020-11-09 | OP ---
[address] [address] OPERATIVE REPORT Name: ZENON SALVADOR Room: [facility].#: [id number] Admission: 11/09/20 Attend Phys: Valentín Roca MD Discharge: Date of : 52 Report #: [id number] THIS REPORT FOR: cc: Alyse Rhodes Tammy RNP Haggard, Kent L MD ~ DOC #: [id number] Valentín Roca MD DATE OF SURGERY: 11/09/2020 PREOPERATIVE DIAGNOSES: Urinary retention, benign prostatic hypertrophy with obstruction. POSTOPERATIVE DIAGNOSES: Urinary retention, benign prostatic hypertrophy with obstruction. Penile meatal necrosis. PROCEDURE: Cystoscopy with transurethral resection of the prostate. Partial debridement of penile meatal stenosis. STAFF SURGEON: Valentín Roca MD. DRIFTMAN: None. ANESTHESIA: General. ESTIMATED BLOOD LOSS: 10 mL COMPLICATIONS: None. SPECIMENS: Prostate chips. DRAINS: 20-Trinidadian 3-way Andersen catheter. INDICATIONS FOR PROCEDURE: The patient is a pleasant 69-year-old white male on maximum medical therapy with Flomax and Proscar, who has failed three voiding trials with a chronic indwelling Andersen catheter longer than two months. He is a diabetic with poorly controlled blood sugar. He was counseled regarding treatment options, elected for definitive cystoscopy, transection of the prostate. After the risks and benefits of the procedure explained and informed consent was obtained. DESCRIPTION OF PROCEDURE: The patient was taken to the operating room comfortably placed in the dorsal lithotomy position under adequate general anesthesia. He was sterilely prepped and draped in standard fashion exposing only the genitalia. He received 2 grams of intravenous Ancef as prescribed. Appropriate timeout was carried out and all were in agreement. Observation, [facility] [address] [place] [address] OPERATIVE REPORT Name: MADELEINEZENON GANN Room: [facility].#: [id number] Admission: 11/09/20 Attend Phys: Valentín Roca MD Discharge: Date of : 52 Report #: [id number] penile meatus discovered, noted necrotic tissue from 4 o'clock position. Scissors were used to excise some of the redundant tissue. At that point was able to take a 22-Trinidadian cystoscope placed through urethra into the bladder. A 22-Trinidadian cystoscope was placed in the urethra. Anterior urethra normal. Sphincter intact. Prostate showed some bilobar prostatic hyperplasia with visual obstruction. Bladder was systematically viewed. Both ureteral orifices identified normal. No bladder calculi seen or foreign body observed. Mucosa was smooth. He had mild to moderate trabeculation throughout. The cystoscope was then removed and a 26-Trinidadian continuous flow sheath with Renny obturator ____ was inserted through the urethra into the bladder. The obturator removed, draining clear irrigation. A bipolar button was put in place and underwent standard vaporization of the obstructing prostatic adenoma from the bladder neck to the verumontanum circumferentially. Care was taken not to damage either ureteral orifice or the urethral sphincter. Of note, there was some necrotic portion of the meatus from about 4 o'clock to 8 o'clock position. Some of that area was debrided in fact. Care was taken not to damage either ureteral orifice or the sphincter. The entire prostatic fossa was fulgurated. There were a few prostate chips were avulsed out. They were removed with Ellik evacuator. Careful inspection showed no residual fragments in the bladder. Resectoscope was then removed. Crede maneuver noted a very good urinary force of stream. A 20-Trinidadian 3-way Andersen catheter with catheter guide was put in place and secured with 30 mL of sterile water. It was clear irrigation. We placed the irrigation. We will anticipate some irrigation through the 3 liter bag while in recovery room, plugged the irrigation port in home. He may remove the Andersen catheter on Friday. PLAN: Follow up in our office in 3 weeks from now, 2 weeks for catheter removal. Valentín CAMPBELL/[place]/[facility] By: [id number] 1518Kent Cami Roca MD /feng
[2020-11-09 12:04] LABS: HEMATOCRIT 29.2 % (42.0-52.0); HEMOGLOBIN 9.2 gm/dL (14.0-18.0); MCH 25.3 pg (26.0-34.0); MCHC 31.6 g/dL (28.0-37.0); MCV 80.2 fL (80.0-100.0); MPV 6.6 fl. (7.2-11.1); RBC 3.64 mil/uL (4.50-6.00); RDW-CV 16.4 % (10.5-14.5); WBC 11.7 thou/uL (4.0-11.0)
[2020-11-09 12:12] LABS: CALCIUM 9.7 mg/dL (8.5-10.1); POTASSIUM 5.9 mmol/L (3.5-5.1)
--- NOTE | 2020-11-09 17:46 | EKG ---
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: [place] : 1950 Requested By: Kim Ewing Order Number: [id number] Mike MD: Jaime Rosales Measurements Intervals Sparks Rate: 84 P: 56 SC: 173 QRS: 40 QRSD: 107 T: 56 QT: 391 QTc: 463 Interpretive Statements Sinus rhythm Nonspecific interventricular conduction delay Atrial premature complexes Compared to ECG 09/24/2020 01:24:17 Atrial premature complex(es) now present Sinus tachycardia no longer present Electronically Signed On 11-09-2020 17:46:14 CDT by Jaime Rosales [email or web address] <ELECTRONICALLY SIGNED> By: Jaime Rosales MD, [facility] 11/09/20 1746 1204 1204 Jaime Rosales MD, [facility] /EPI
== END | disposition home or self-care (01) ==
LOC: M.SUR 05:47
PROVIDERS: Anesthesiology; ATTEND Urology
DX: N40.1 Benign prostatic hyperplasia with lower urinary tract symptoms (principal); R33.9 Retention of urine, unspecified; N48.89 Other specified disorders of penis; I11.0 Hypertensive heart disease with heart failure; I50.20 Unspecified systolic (congestive) heart failure; E11.40 Type 2 diabetes mellitus with diabetic neuropathy, unspecified; E11.52 Type 2 diabetes mellitus with diabetic peripheral angiopathy with gangrene; E78.5 Hyperlipidemia, unspecified; D50.0 Iron deficiency anemia secondary to blood loss (chronic); I48.0 Paroxysmal atrial fibrillation; I48.92 Unspecified atrial flutter; Z98.890 Other specified postprocedural states; Z79.899 Other long term (current) drug therapy; Z20.822 Contact with and (suspected) exposure to COVID-19; Z79.01 Long term (current) use of anticoagulants; Z79.82 Long term (current) use of aspirin

== ENCOUNTER → 2020-12-07 | Day surgery (SDC) | payer MEDICARE, OTHER ==
[~2020-12-07] MED LIST changes: +FOLIC ACID1 MG PO; +HUMULIN 70100 UNIT/2 SUBQ; +IMODIUM A-D2 M1 PO; +IRON325 PO; +NAPROXEN SODIU220 M2 PO; +PEPCID20 MG PO; +PHENAZOPYRIDIN200 M2 PO; +PROBIOTIC1 EAC7 PO; +REGLAN 10 MG TA10 MG PO; +SORINE 80 MG TA80 MG PO; +TRAMADOL 50 MG50 MG PO; +VANCOMYCIN HCL125 MG PO
--- NOTE | ~2020-12-07 | OP ---
[address] [address] OPERATIVE REPORT Name: ZENON SALVADOR Room: [facility].#: [id number] Admission: 12/07/20 Attend Phys: aVlentín Roca MD Discharge: Date of : 52 Report #: [id number] THIS REPORT FOR: cc: Alyse Rhodes Tammy RNP Haggard, Kent L MD ~ DOC #: [id number] Valentín Roca MD DATE OF SURGERY: 12/07/2020 PREOPERATIVE DIAGNOSIS: Urinary retention. POSTOPERATIVE DIAGNOSIS: Urinary retention. PROCEDURE: Cystoscopy, punch suprapubic tube. STAFF SURGEON: Valentín Roca MD DIGITAL DESIGN ENGINEER: None. ANESTHESIA: General. ESTIMATED BLOOD LOSS: 2 mL. COMPLICATIONS: None. SPECIMENS: None. DRAIN: A 16-Citizen Of [place] SP tube. INDICATIONS: The patient is a pleasant 70-year-old white male with urinary retention who has undergone cystoscopy with transurethral resection of the prostate, but still was unable to void. He now presents for cystoscopy, punch suprapubic tube in an effort to manage his urinary retention. If able to spontaneously void, may ultimately remove, but maybe it is temporary or permanent as needed. He was counseled regarding treatment options, elected for definitive cystoscopy with punch suprapubic tube. OPERATIVE PROCEDURE: The patient was taken to the operating room, comfortably placed in the dorsal lithotomy position under adequate general anesthesia. He was sterilely prepped and draped in standard fashion exposing only the genitalia. He received his antibiotic therapy as prescribed. Appropriate time-out was carried out and all were in agreement. A 22-Citizen [place] cystoscope was placed into his urethra. Anterior urethra was normal. Sphincter was intact. Prostate showed wide open prostatic opening consistent with somewhat recent TURP. Bladder wall with moderate trabeculation throughout[place] [address] OPERATIVE REPORT Name: ZENON SALVADOR Room: [facility]#: [id number] Admission: 12/07/20 Attend Phys: Valentín Roca MD Discharge: Date of : 52 Report #: [id number] distended approximately 60 cm of water pressure until equilibration was reached. About a 1.5 cm incision was made 2 fingerbreadths above the pubic bone in the midline. A disposable Cook dilator set was placed into the wound, cystoscopically observed a good pass directly into the bladder anterior wall. The obturator was removed. A 16-Citizen [place] catheter was placed through the disposable sheath and secured with 8 mL of sterile water. The peel-away sheath was removed. Small amount of bleeding noted at the SP tube site. Bugbee electrode set, 30 wayne used to fulgurate the biopsy site. Meticulous hemostasis verified. Bladder was drained, cystoscope was then removed. Irrigated freely stained amount of blood in the beginning, but it became crystal clear. A 2-0 Prolene suture was used to secure the suprapubic tube to the skin. He tolerated the procedure extremely well. He was extubated in the operating room, transferred to [facility] with assistance, went to recovery in stable condition. We will see him back in our office in a month. Discussed possible changing the tube to 18-Citizen [place], possible clamping. I did voiding trial. Valentín CAMPBELL/[facility] By: [id number] 1803Kent Cami Roca MD /nt
[2020-12-07 14:45] LABS: HEMATOCRIT 27.5 % (42.0-52.0); HEMOGLOBIN 9.1 gm/dL (14.0-18.0); MCH 27.1 pg (26.0-34.0); MCHC 33.1 g/dL (28.0-37.0); MPV 6.2 fl. (7.2-11.1); RBC 3.35 mil/uL (4.50-6.00); RDW-CV 18.5 % (10.5-14.5); WBC 9.9 thou/uL (4.0-11.0)
[2020-12-07 14:51] LABS: CALCIUM 8.6 mg/dL (8.5-10.1); CREATININE 0.8 mg/dL (0.6-1.3); POTASSIUM 4.7 mmol/L (3.5-5.1)
== END | disposition home or self-care (01) ==
LOC: M.SUR 09:54
PROVIDERS: ATTEND Urology
DX: R33.9 Retention of urine, unspecified (principal); N40.0 Benign prostatic hyperplasia without lower urinary tract symptoms; I10 Essential (primary) hypertension; I48.91 Unspecified atrial fibrillation; E78.5 Hyperlipidemia, unspecified; I48.92 Unspecified atrial flutter; I42.9 Cardiomyopathy, unspecified; E11.40 Type 2 diabetes mellitus with diabetic neuropathy, unspecified; E11.621 Type 2 diabetes mellitus with foot ulcer; D64.9 Anemia, unspecified; Z98.890 Other specified postprocedural states; Z79.899 Other long term (current) drug therapy; Z79.01 Long term (current) use of anticoagulants

== ENCOUNTER 2020-12-13 05:14 | Emergency (ER) | payer MEDICARE, OTHER ==
[~2020-12-13] VITALS: Ht 175.3 cm; Wt 87.1 kg
[~2020-12-13 05:14] MED LIST changes: -IMODIUM A-D2 M1 PO; -NAPROXEN SODIU220 M2 PO; -PHENAZOPYRIDIN200 M2 PO; -PROBIOTIC1 EAC7 PO; -SORINE 80 MG TA80 MG PO; -TRAMADOL 50 MG50 MG PO
[2020-12-13] MEDS ORDERED: NAPROXEN SODIU220 M2 PO ×2 (05:29)
[2020-12-13] MEDS ORDERED: PROBIOTIC1 EAC7 PO (05:30)
[2020-12-13] MEDS ORDERED: PHENAZOPYRIDIN200 M2 PO (05:32)
[2020-12-13] MEDS ORDERED: SORINE 80 MG TA80 MG PO (05:33)
[2020-12-13] MEDS ORDERED: FLOMAX0.4 MG PO (05:33)
[2020-12-13] MEDS ORDERED: TRAMADOL 50 MG50 MG PO (05:33)
[2020-12-13] MEDS ORDERED: IMODIUM A-D2 M1 PO (05:35)
[2020-12-13] MEDS ORDERED: BACTRIM DS TAB1 EAC1 PO (05:35)
[2020-12-13 10:50] VITALS: BP 131/64
== END 2020-12-13 10:53 | disposition home or self-care (01) ==
LOC: M.ERS 05:14
DX: S01.81XA Laceration without foreign body of other part of head, initial encounter (principal); I48.92 Unspecified atrial flutter; I11.0 Hypertensive heart disease with heart failure; I50.9 Heart failure, unspecified; G89.29 Other chronic pain; E11.42 Type 2 diabetes mellitus with diabetic polyneuropathy; M25.511 Pain in right shoulder; Z79.899 Other long term (current) drug therapy; W06.XXXA Fall from bed, initial encounter; Y93.89 Activity, other specified; Y92.092 Bedroom in other non-institutional residence as the place of occurrence of the external cause; Y99.9 Unspecified external cause status

== ENCOUNTER 2020-12-31 19:52 | Observation (INO) | payer MEDICARE, OTHER ==
[~2020-12-31] VITALS: Ht 175.3 cm; Wt 87.1 kg
[~2020-12-31 19:52] MED LIST changes: +IMODIUM A-D2 M1 PO; +NAPROXEN SODIU220 M2 PO; +PHENAZOPYRIDIN200 M2 PO; +PROBIOTIC1 EAC7 PO; +SORINE 80 MG TA80 MG PO; +TRAMADOL 50 MG50 MG PO
[2020-12-31 19:57] VITALS: BP 156/78
[2020-12-31 22:41] LABS: URINE BILIRUBIN NEGATIVE (Negative); URINE BLOOD 3+ (Negative); URINE CLARITY CLOUDY; URINE COLOR YELLOW; URINE GLUCOSE-RANDOM TRACE (Negative); URINE KETONES NEGATIVE (Negative); URINE PROTEIN 2+ (Negative); URINE SPECIFIC GRAVITY 1.015 (1.005-1.030)
[2020-12-31 22:42] LABS: URINE LEUKOCYTES-REFLEX 2+ (Negative); URINE NITRITE-REFLEX POSITIVE (Negative)
[2020-12-31 23:14] LABS: CASTS None Seen /LPF (None Seen); SQUAMOUS NONE SEEN /LPF (0-3)
[2020-12-31 23:15] LABS: URINE RBC >20 Many /HPF (0-2); URINE WBC-REFLEX >25 Many /HPF (0-5)
[2020-12-31 23:16] LABS: BACTERIA-REFLEX >30 Many /HPF (None Seen); CRYSTALS None Seen /LPF (None Seen)
[2021-01-01 00:39] LABS: HEMATOCRIT 24.4 % (42.0-52.0); HEMOGLOBIN 8.1 gm/dL (14.0-18.0); NUCLEATED RBCS 0 /100WBC
[2021-01-01 00:52] LABS: MCH 27.4 pg (26.0-34.0); MCHC 33.2 g/dL (28.0-37.0); MCV 82.6 fL (80.0-100.0); MPV 6.2 fl. (7.2-11.1); PLATELET COUNT* 289 thou/uL (150-400); RBC 2.96 mil/uL (4.50-6.00); RDW-CV 18.3 % (10.5-14.5); WBC 8.1 thou/uL (4.0-11.0)
[2021-01-01 00:53] LABS: CALCIUM 8.1 mg/dL (8.5-10.1); CREATININE 0.9 mg/dL (0.6-1.3); POTASSIUM 4.2 mmol/L (3.5-5.1)
[2021-01-01 01:38] LABS: ABSOLUTE BASOPHILS 0.2 thou/uL (0.0-0.2); ABSOLUTE EOSINOPHILS 0.6 thou/uL (0.0-0.7); ABSOLUTE LYMPHOCYTES 1.9 thou/uL (0.8-5.3); ABSOLUTE MONOCYTES 0.6 thou/uL (0.0-1.2); ABSOLUTE NEUTROPHILS 4.7 thou/uL (1.6-8.1); PLATELET ESTIMATE ADEQUATE
[2021-01-01 01:39] LABS: ANISOCYTOSIS 1+
[2021-01-01 03:00] VITALS: BP 142/58
--- NOTE | 2021-01-01 03:40 | NUR ---
PT [facility] # [phone] CELL # [phone] PT HAS MULTIPLE WOUNDS, PICTURES TAKEN/ ON CHART, WOUNDS CLEANED AND NEW DRESSINGS APPLIED.
[2021-01-01 06:15] VITALS: BP 110/45
[2021-01-01 10:30] VITALS: BP 105/60
[2021-01-01] MEDS ORDERED: CIPRO500 M1 PO (11:52)
--- NOTE | 2021-01-01 12:50 | NUR ---
Spoke to Delilah over the phone. Introduced role of CM. Patient currently resides at [facility] (SNF). Prior to admission patient was living with spouse and using a walker. No home O2. Patient is stable for discharge and the plan is for patient to return to [facility] today. Faxed clinicals and dc summary to Silvia at [facility] ( ). Samira to call back with a pickup time. [facility] will pick patient up. would like to meet patient at [facility] rather than come back to the ED. CM Dir will call once picker tender time is confirmed. HS and nursing aware. Will obtain nurse report number once Samira calls back. Silvia [phone] CM to continue to follow
--- NOTE | 2021-01-01 13:29 | NUR ---
CALLED REPORT TO OKSANA AT [facility]. PER CASE MGMT, REHAB FACILITY SET TO PERSONNEL PLACEMENT SPECIALIST PT AT 1530 HOURS TODAY. NURSE VERBALIZED UNDERSTANDING
[2021-01-01 16:10] VITALS: BP 163/80
== END 2021-01-01 16:10 ==
LOC: M.ERS 19:52 → M.TBA-ER 01-01 00:21
PROVIDERS: Emergency Medicine; ADMIT Internal Medicine; ATTEND Internal Medicine
DX: N30.01 Acute cystitis with hematuria (principal); Z20.822 Contact with and (suspected) exposure to COVID-19; E11.65 Type 2 diabetes mellitus with hyperglycemia; E78.5 Hyperlipidemia, unspecified; I48.92 Unspecified atrial flutter; E11.42 Type 2 diabetes mellitus with diabetic polyneuropathy; I11.0 Hypertensive heart disease with heart failure; I50.20 Unspecified systolic (congestive) heart failure; Z79.82 Long term (current) use of aspirin; Z79.899 Other long term (current) drug therapy